=== PATIENT | male | born 1945 | race Caucasian/White ===

== ENCOUNTER → 2018-05-31 06:03 | Day surgery (SDC) | payer MEDICARE ==
--- NOTE | 2018-05-13 14:56 | HP ---
CC: Dr. Gema Cabral HISTORY AND PHYSICAL: DATE OF PLANNED ADMISSION AND SURGERY: 05/17/18 HISTORY OF PRESENT ILLNESS: Mr. Chapa is a 72-year-old white male who is admitted with a right renal calculus for cystoscopy, right ureteral stent insertion and shockwave lithotripsy. Mr. Chapa had all his urological workup in [place], [place], until he moved recently to the [place] area. Over the years, he had multiple treatments for renal calculi with bilateral shockwave lithotripsies and endoscopic stones extractions. In October 2014 because of bladder outlet obstruction, he had green light laser treatment of his obstructing prostate. About 2 years ago, he started having recurrent episodes of gross hematuria. He was worked up then by Dr. Kauffman, his urologist in [place], [place]. His workup included a CT scan which showed bilateral nonobstructing renal calculi and a cystoscopy which was negative for bladder lesions. The stones were managed conservatively. After he moved to [place], he has been followed by Dr Cabral his PCP. She referred him to my office because of recurrent episodes of painless gross hematuria. He had a repeat workup.CT urogram showed non obstructing bilateral renal calculi with the largest measuring 1.5 cm in the right renal pelvis. Cystoscopy showed an open prostatic urethra, the bladder wall showed trabeculations, but no suspicious lesions were seen. The episodes of gross hematuria were assumed to be secondary to the renal calculi. On the CT urogram, there was noted a 1.5 cm subtle mass in the head of the pancreas. Patient has been asymptomatic, having no abdominal pain, jaundice or weight loss. I referred him to see Dr. Kim for oncology consultation and Dr. Kim recommended close observation at this time. Because of the presence of the relatively large calculus in the right renal pelvis, which is likely to cause obstruction if it drops into the UPJ, patient is now admitted for treatment of that calculus. PAST MEDICAL HISTORY AND SYSTEM REVIEW: The patient has multiple medical problems. He is diabetic, maintained on metformin 1000 mg twice a day. He is hypertensive, maintained on labetalol 100 mg twice a day and lisinopril 10 mg daily. He has a history of gout and is on allopurinol 200 mg daily. He has Parkinson disease and is maintained on gabapentin 600 mg 4 times a day, Depakote 250 mg twice a day and amantadine 100 mg twice a day. He is also on clonazepam 0.4 mg at bedtime as needed. He has dyslipidemia, on Pravachol 40 mg daily. He has GERD, on omeprazole 20 mg daily. He is on duloxetine 30 mg daily and meloxicam 7.5 mg daily. He denies any allergies to medications. He was a chronic heavy smoker of 2 packs per day most of his life and he stopped about 6 months ago. PHYSICAL EXAMINATION GENERAL: He is a pleasant white male, who looks older than his age and has some changes of Parkinson's. VITAL SIGNS: Blood pressure 100/60, pulse of 70. LUNGS: Clear. HEART: Regular and rhythmic. No murmurs. ABDOMEN: Soft. No masses, no tenderness, and no CVA tenderness. EXTERNAL GENITALIA: Normal. RECTAL: Exam shows a nonenlarged and nonsuspicious prostate. EXTREMITIES: Show no edema. IMPRESSION: 1. Recurrent episodes of gross hematuria with the only positive finding on urological workup are bilateral renal calculi including a 1.5 cm calculus in the right renal pelvis. 2. Diabetes mellitus. 3. Hypertension. 4. Parkinson disease. 5. Chronic back pain. 6. Pancreatic mass, observed and followed by Dr. Kim. PLAN: Plan is for cystoscopy and placement of right ureteral stent followed by shockwave lithotripsy of the right renal calculus. I discussed the above plans with the patient and his . They both understand that he might need additional treatments if the stone does not fragment properly or if he has retained stone fragments in the ureter following stent removal. All their questions were answered. [id number]/[facility] #: [id number] [facility]S HOSPITALStorm
[~2018-05-31 06:03] MED LIST: Acetaminophen TAB* 325 MG PO PRN; Buffered Lidocaine 1% SYRIN* 1 ML/SYRINGE INTRADERM ONE; DiMENhydriNATE IV* 50 MG/ML VIAL IV PUSH PRN; Famotidine IV* 10 MG/ML 2 ML (20 mg) IV ONE; Famotidine IV* 10 MG/ML 2 ML (20 mg) ONE; Iohexol 180 (CONTRAST) 10 ML SDV IV ONE; Lactated Ringers 1000 ML Bag* 1,000 ML IV SCH; Levalbuterol 0.63MG/3ML NEB* UNIT OF USE INH PRN; Lidocaine 2% PF * 5 ML VIAL ONE; Midazolam* 1 MG/ML 2 ML VIAL (2 MG) ONE; Naloxone* 0.4 MG/ML 1 ML VIAL IV PRN; Ondansetron INJ* 2 MG/ML VIAL ONE; PROCHLORPERAZINE INJ 5 MG/ML 2 ML VIAL IV PRN; Propofol* 10 MG/ML 20 ML BTL ONE; cefTRIAXone(*) 2 GM ADDV.VIAL IVPB ONE; fentaNYL* 50 MCG/ML 2 ML VIAL (100 MCG VIAL) IV PRN; fentaNYL* 50 MCG/ML 2 ML VIAL (100 MCG VIAL) ONE
[2018-05-31 10:41] VITALS: BP 161/81
--- NOTE | 2018-05-31 10:55 | OP ---
CC: Dr. Gema Cabral * DATE OF OPERATION: 05/31/18 - [facility] DATE OF : 49 SURGEON: Dr. Oh Spence. ANESTHESIOLOGIST: Dr. Jersey Patel. ANESTHESIA: General. PRE-OP DIAGNOSIS: Right renal calculi. POST-OP DIAGNOSIS: Right renal calculi. OPERATIVE PROCEDURES: 1. Shockwave lithotripsy of right renal calculi (12 mm and 6 mm). 2. Cystoscopy. 3. Right retrograde pyelography and placement of right ureteral stent (6-Libyan ). INDICATIONS: Mr. Chapa is a 72-year-old white male who has a long history of renal calculus disease causing recurrent episodes of gross hematuria. He had previous treatment for his stones in [place] before he moved into [place]. Recent workup of the hematuria showed negative cystoscopy with no suspicious bladder lesions. CT and KUB showed multiple bilateral renal calculi. There was a 12 mm calculus in the right renal pelvis and a 6 mm calculus in the mid to upper pole calyx of the right kidney. The calculi in the left kidney were all caliceal. Because of the concern that the stone in the right renal pelvis might drop and cause obstruction and colic, the right renal calculi were addressed at this time. PATHOLOGY: Preoperative KUB, and fluoroscopy on the operating table confirmed the presence of a 12 x 5 mm calculus in the area of the right renal pelvis and a 6 mm calculus in an upper to mid pole calyx of the right kidney. FINDINGS: At cystoscopy, the penile and bulbar urethra looked normal. The prostatic urethra was open consistent with history of laser prostatectomy. Examination of the bladder showed no suspicious lesions, no calculi or diverticula were noted. Upon right retrograde pyelography, the renal pelvis was relatively small. The upper pole infundibulum was moderately dilated. The mid and lower pole infundibuli were narrow and long. DESCRIPTION OF PROCEDURE: After successful general anesthesia, patient was placed in the supine position on the shockwave lithotripsy table. The right renal calculi were visualized by fluoroscopy in both the PA and oblique x-ray views. The position of the patient and of the generator were adjusted to have the larger calculus located in the right renal pelvis in the focus of the shockwaves. A total of 2,100 shocks were then delivered at the rate of 60 shocks per minute. Proper positioning and fragmentation of the calculus were monitored periodically. A 3-minute break was taken after the initial 300 shocks to decrease the risk of renal injury. At 2100 shocks, the stone was felt to have broken adequately. The decision was made to use the remaining shockwaves to partially fragment and dislodge the residual right renal calculus. The position of the patient and of the generator were then readjusted to have the 6 mm caliceal calculus in the focus of the shockwaves. The remaining 400 shocks were then delivered and there seemed to be fragmentation of the stone. The patient was then placed in the lithotomy position and was prepped and draped for cystoscopy. Cystoscopy was performed. A flexible tip guidewire was introduced inside the right orifice. Retrograde pyelography was performed. A size 6-Libyan stent was then placed. Because of the anatomy of the collecting system and the small size of the renal pelvis, the proximal end of the stent ended up in an upper calyx with the coil in the renal pelvis. A 16-Libyan Rodrigues catheter was then placed inside the bladder. The patient tolerated the procedure well and left the operating room in good condition. [id number]/[facility] #: [id number] JAYCOB
== END | disposition home or self-care (01) ==
LOC: OR 06:03
PROVIDERS: ATTEND Urology
DX: N20.0 Calculus of kidney (principal); R31.0 Gross hematuria; F17.211 Nicotine dependence, cigarettes, in remission; G20 Parkinson's disease; E11.9 Type 2 diabetes mellitus without complications; Z79.84 Long term (current) use of oral hypoglycemic drugs; I10 Essential (primary) hypertension; K86.89 Other specified diseases of pancreas
CPT/HCPCS: 74018; C1876; J0696; J2250; J2405; J2704; J3010

== ENCOUNTER 2018-11-15 09:12 | Inpatient (IN) | payer MEDICARE ==
--- OUTSIDE RECORDS SUMMARY | 2018-11-15 09:26 | XMS REPORT | Continuity of Care Document ---
:1945 External Reference #:[id number] Author Name Belen Roche Care Team Providers Name Role Phone Gema Cabral MD Primary Care Physician Unavailable Payers Date Identification Numbers Payment Provider Subscriber Policy Number: [id number] Medicare Blue Ppo Lang Chapa PayID: [id number] [address] [address] [place] [address] Problems Active Problems Provider Date Parkinson's disease Kayden Cosme M.D. Onset: 03/11/2018 Social History Type Date Description Comments Sex Unknown Hand Dominance Right-handed ETOH Use Denies alcohol use Tobacco Use Start: Unknown End: Unknown Patient is a former smoker Smoking Status Reviewed: 10/18/18 Patient is a former smoker Allergies, Adverse Reactions, Alerts Description No Known Drug Allergies Medications Active Medications SIG Qnty Indications Ordering Provider Date Amantadine HCL 1 by mouth two 60tabs Kayden Cosme, 03/08/2018 100mg times a day M.D. Tablets Labetalol HCL 1 by mouth twice Unknown 100mg a day Tablets Lisinopril 1 by mouth every Unknown 10mg Tablets day Folic Acid 1 by mouth every Unknown 1mg Tablets day Acetaminophen 1 by mouth twice Unknown 500mg a day as needed Tablets Centrum Silver 1 by mouth every Unknown Tablets day Nasonex spray 2 sprays Unknown 50mcg/Act in each nostril Suspension once daily Calcium 1 two times a Unknown 250mg Capsules day Vitamin D3 1 by mouth every Unknown 2000Unit day Capsules Aspir-81 1 by mouth every Unknown 81mg Tablets day DR Oxycodone-Acetaminoph Take 1 Tablet By Unknown en Mouth Four Times 10-325mg Tablets Daily as Needed For Pain Lactulose As directed Unknown 10GM/15ML Solution Pravastatin Sodium 1 po daily Unknown 40mg Tablets Omeprazole 1 po daily Unknown 20mg Capsules DR Morphine Sulfate Take 1 Tablet By Unknown 15mg Mouth Three Tablets Times Daily Maximum Daily Dose Of 3 Tablets Per Day Metformin HCL once every am a Unknown 1000mg day and pm Tablets Meloxicam 1 po daily Unknown 7.5mg Tablets Duloxetine HCL 1 po daily Unknown 30mg Caps Part Divalproex Sodium twice a day Unknown 250mg Tablets DR Allopurinol 1 po daily Unknown 200mg Tablets Clonazepam 1 po at hs Gema Allan MD 0.5mg Tablets Gabapentin take one tablet Unknown 600mg by mouth four Tablets times a day Exelon apply 1 patch to Unknown 9.5mg/24HR the skin every Patches 24HR 24 hours History Medications Lisinopril 1 po two times a day Unknown - 06/10/2018 20mg Tablets Labetalol HCL Take 1 Tablet By Mouth Unknown - 06/10/2018 200mg Tablets Two Times Daily Norvasc 1 by mouth every day Unknown - 06/09/2018 5mg Tablets Vital Signs Date Vital Result Comment 10/18/2018 1:54pm Height 70 inches 5'10" Weight 222.00 lb Heart Rate 68 /min BP Systolic 142 mmHg BP Diastolic 98 mmHg BMI (Body Mass Index) 31.9 kg/m2 06/10/2018 11:41am Height 70 inches 5'10" Weight 210.00 lb Heart Rate 68 /min BP Systolic 152 mmHg BP Diastolic 78 mmHg BMI (Body Mass Index) 30.1 kg/m2 03/11/2018 9:23am Height 70 inches 5'10" Weight 213.50 lb Heart Rate 70 /min BP Systolic 120 mmHg BP Diastolic 62 mmHg BMI (Body Mass Index) 30.6 kg/m2 Encounters Type Date Location Provider Dx Diagnosis Office Visit 10/18/2018 [facility] Ba, G2Rima Parkinson' s 1:45p [facility] Office Visit 06/10/2018 [facility] Katelyn Garcia Parkinson' s 11:45a [facility] Office Visit 03/11/2018 [facility] Kayden Cosme G2Rima Parkinson' s 9:30a [facility] Plan of Treatment Future Appointment(s):02/18/2019 1:30 pm - Kayden Cosme M.D. at [facility]10/25/2018 9:30 am - Moises Boles [facility]10/18/2018 - Kayden Cosme M.D.G20 Parkinson's diseaseNew Therapy:Occupational TherapyFollow up:Follow up in 4 months
--- NOTE | 2018-11-15 10:20 | ED ---
Adult Trauma - HPI Summary HPI Summary: LEVEL 5 CAVEAT - AMS This patient is a 73 year old M w hx of Parkinson's [facility] and [facility] with a chief complaint of fall occurring this morning. Patients reports she found pt on the floor of the bathroom. Pt has Parkinsons, and occasionally has episodes of AMS. Pt is alert and oriented x1 (to person). Pt did not know the year, time or the city he was in. According to at baseline he is oriented x3, he is occasionally forgetful. The last episode was approx. 1 year ago. Pt has a scrape on his left knee. Pt takes baby aspirin. Denies complaints at this time. LEVEL 5 CAVEAT - AMS - History of Current Complaint Chief Complaint: EDFall Stated Complaint: SICK PER PT Time Seen by Provider: 11/15/18 09:56 Hx Obtained From: Family/Family Consultant, Other: - LEVEL 5 CAVEAT - AMS Hx From Patient Unobtainable Due To: Altered Mental Status Mechanism of Injury: Fall Ambulatory at the Scene: Yes Loss of Consciousness: unsure Onset/Duration: Started Hours Ago Onset of Pain: Post Accident Onset Severity: Moderate Current Severity: Moderate Pain Intensity: 5 Pain Scale Used: 0-10 Numeric Location: Other - left knee - Allergy/Home Medications Allergies/Adverse Reactions: Allergies Allergy/AdvReac Type Severity Reaction Status Date / Time No Known Allergies Allergy Verified 09/13/18 14:31 PMH/Surg Hx/FS Hx/Imm Hx Previously Healthy: No - LEVEL 5 CAVEAT - AMS Endocrine/Hematology History: Reports: Hx Diabetes - DM, Hx Anemia - hx of - none for about 1 years Cardiovascular History: Reports: Hx Hypercholesterolemia, Hx Hypertension, Other Cardiovascular Problems/Disorders - left and right carotid blockage Denies: Hx Pacemaker/ICD Respiratory History: Reports: Hx Seasonal Allergies GI History: Reports: Hx Gastroesophageal Reflux Disease, Hx Irritable Bowel, Other GI Disorders - chronic constipation History: Reports: Hx Kidney Stones - BILATERAL Denies: Hx Renal Disease - KIDNEY STONES Musculoskeletal History: Reports: Hx Arthritis, Hx Back Problems, Hx Bursitis - elbow, Hx Gout Sensory History: Reports: Hx Contacts or Glasses - to read, Hx Hearing Aid - both ears Opthamlomology History: Reports: Hx Contacts or Glasses - to read Neurological History: Reports: Hx Nerve Disease - DM neuropathy, Parkinsons- diagnosed 2013, Other Neuro Impairments/Disorders - charco left foot Psychiatric History: Reports: Hx Depression Denies: Hx Panic Disorder - Cancer History Hx Chemotherapy: No - Surgical History Surgery Procedure, Year, and Place: Lumbar Laminectomy x2 20 years ago in [place]. SKIN GRAFTS ([place]). CHOLECYSTECTOMY. LITHROTRIPSY- multiple times. bilat cataract surgery with IOL. green light laser for prostate Hx Anesthesia Reactions: Yes - after 1 surgery had delayed urinary retention Infectious Disease History: No Infectious Disease History: Denies: Traveled Outside the [place] in Last 30 Days - Family History Known Family History: Positive: Other - LEVEL 5 CAVEAT - AMS - Social History Alcohol Use: None Substance Use Type: Reports: None Smoking Status (MU): Former Smoker Type: Cigarettes - Additional Comments History Additional Comments: LEVEL 5 CAVEAT - AMS Review of Systems Positive: Other - pos - scrape on left knee Neurological: Other - pos - Oriented x1 All Other Systems Reviewed And Are Negative: No - Comments Additional Review of Systems Comments: LEVEL 5 CAVEAT - AMS Physical Exam - Summary Physical Exam Summary: LEVEL 5 CAVEAT - AMS Constitutional: Elderly male, (-) Distressed Skin: Warm, Dry HENT: Normocephalic; Atraumatic Eyes: Conjunctiva normal Neck: Musculoskeletal ROM normal neck. (-) JVD, (-) Stridor, (-) Nuchal rigidity Cardio: Rhythm regular, rate normal, Heart sounds normal; Intact distal pulses; Radial pulses are 2+ and symmetric. (-) Murmur Pulmonary/Chest wall: Effort normal. (-) Respiratory distress, (-) Wheezes, (-) Rales Abd: Soft, (-) tenderness, (-) Distension, (-) Guarding, (-) Rebound Musculoskeletal: (-) Edema Lymph: (-) Cervical adenopathy Neuro: Alert, Oriented to person, not place or time. CN2-12 grossly intact. BUE BLE strength 5/5, Extremity tremors Psych: Mood and affect Normal Triage Information Reviewed: Yes Vital Signs On Initial Exam: Initial Vitals Temp Pulse Resp BP Pulse Ox 97.9 F 113 20 134/67 94 11/15/18 09:14 11/15/18 09:14 11/15/18 09:14 11/15/18 09:14 11/15/18 09:14 Vital Signs Reviewed: Yes Diagnostics - Vital Signs Vital Signs Temp Pulse Resp BP Pulse Ox 11/15/18 09:14 97.9 F 113 20 134/67 94 - Laboratory Result Diagrams: 11/15/18 10:36 11/15/18 10:36 Lab Statement: Any lab studies that have been ordered have been reviewed, and results considered in the medical decision making process. - Radiology CXR Radiology Interpretation Completed By: Radiologist Summary of Radiographic Findings: CXR reveals, per radiologist, IMPRESSION: NO ACTIVE CARDIOPULMONARY DISEASE. ED physician has reviewed this radiology report. - CT Brain CT CT Interpretation Completed By: Radiologist Summary of CT Findings: Brain CT reveals, per radiologist, IMPRESSION: DIFFUSE INVOLUTIONAL CHANGE. NO ACUTE INTRACRANIAL PATHOLOGY. ED physician has reviewed this radiology report. - EKG 10:14 Cardiac Rate: Tachycardia - 100 bpm EKG Rhythm: Sinus Rhythm Summary of EKG Findings: An EKG at 10:14 reveals sinus tachycardia 100 bpm Re-Evaluation - Re-Evaluation First Eval Re-Evaluation Time: 12:21 Comment: Discussed results and plan of care with pt. Adult Trauma Course/Dx - Course Course Of Treatment: 73 y/o male with a history of Parkinson's and intermittent confusion presents with weakness and altered mental status. - Physical exam notable for abrasion to left knee without underlying tenderness. Baseline extremity tremors. Patient is alert only to self. Given that this patient has normal O2, BG, hypoxia and hypoglycemia/DKA less likely. DDx still includes: UTI, PNA, electrolyte abnl, thyroid issues, drug overdose, hypothermia, uremia, trauma, encephalopathy/encephalitis, psych, stroke, SAH, postictal from seizure. Will check labs, head ct, urine, ekg, cxr. Reassess. Given weakness will also r/o cardiac causes w EKG, troponin - Diagnoses Provider Diagnoses: Weakness, Altered mental status - Physician Notifications Discussed Care Of Patient With: Chon Guy Time Discussed With Above Provider: 13:06 Instructed by Provider To: Other - Discussed care with Dr. Guy, who accepts pt for admission. Discharge - Sign-Out/Discharge Documenting (check all that apply): Patient Departure - Admit Patient Received Moderate/Deep Sedation with Procedure: No - Discharge Plan Condition: Stable Disposition: ADMITTED TO [facility] - Billing Disposition and Condition Condition: STABLE Disposition: Admitted to [facility] - Attestation Statements Document Initiated by Scribe: Yes Documenting Scribe: Sara Monreal Provider For Whom Gorge is Documenting (Include Credential): Dr. Charles Gagnon MD Scribe Attestation: Sara Mann, scribed for Dr. Charles Gagnon MD on 11/15/18 at 2133. Scribe Documentation Reviewed: Yes Provider Attestation: The documentation as recorded by the gorge, Sara Monreal accurately reflects the service I personally performed and the decisions made by me, Dr. Charles Gagnon MD Status of Scribe Document: Viewed
[2018-11-15] MEDS ORDERED: Amantadine CAP* 100 MG PO ONE (10:44)
[2018-11-15 11:03] LABS: ABS Eosinophils 0.1 10^3/ul (0-0.6); ABS Lymphocytes 1.2 10^3/ul (1.0-4.8); ABS Monocytes 1.5 10^3/ul (0-0.8); ABS Neutrophils 10.4 10^3/ul (1.5-7.7); Eosinophil % 0.6 %; Hematocrit 40 % (42-52); Hemoglobin 13.4 g/dL (14.0-18.0); Lymphocyte % 9.4 %; Mean Corpuscular HGB Conc 33 g/dL (31-36); Mean Corpuscular Hemoglobin 27 pg (27-31); Mean Corpuscular Volume 81 fL (80-94); Mean Platelet Volume 8.1 fL (7.4-10.4); Platelet Count 158 10^3/uL (150-450); Red Blood Count 4.98 10^6 /uL (4.18-5.48); Red Cell Distribution Width 16 % (10-15); White Blood Count 13.2 10^3/uL (3.5-10.8)
[2018-11-15 11:16] LABS: Troponin I 0.18 ng/mL (<0.04)
[2018-11-15 11:35] LABS: ALT 26 U/L (7-52); AST 36 U/L (13-39); Albumin 4.2 g/dL (3.2-5.2); Albumin/Globulin Ratio 1.7 (1-3); Alkaline Phosphatase 68 U/L (34-104); Anion Gap 11 mmol/L (2-11); BUN/Creatinine Ratio 12.1 (8-20); Blood Urea Nitrogen 16 mg/dL (6-24); CO2 Carbon Dioxide 24 mmol/L (22-32); Calcium 9.6 mg/dL (8.6-10.3); Chloride 102 mmol/L (101-111); EGFR African American 64.7 (>60); EGFR Non-African American 53.5 (>60); Globulin 2.5 g/dL (2-4); Glucose 218 mg/dL (70-100); Potassium 4.5 mmol/L (3.5-5.0); Sodium 137 mmol/L (135-145); Total Protein 6.7 g/dL (6.4-8.9)
[2018-11-15 13:05] LABS: Urine Appearance Clear; Urine Bacteria Absent (Absent); Urine Bilirubin Negative (Negative); Urine Blood Negative (Negative); Urine Color Yellow; Urine Glucose Negative (Negative); Urine Ketones 1+ (Negative); Urine Nitrite Negative (Negative); Urine Protein 1+(30 mg/dL) (Negative); Urine Red Blood Cell Trace(0-2/hpf) (Absent); Urine Specific Gravity 1.015 (1.010-1.030); Urine Urobilinogen Positive (Negative); Urine White Blood Cell Trace(0-5/hpf) (Absent)
[2018-11-15] MEDS ORDERED: Acetaminophen TAB* 325 MG PO PRN (14:02)
[2018-11-15] MEDS ORDERED: oxyCODONE TAB* 5 MG TAB PO PRN (14:02)
[2018-11-15] MEDS ORDERED: oxyCODONE/Acetamin 5/325 MG* TAB PO PRN (14:02)
[2018-11-15] MEDS ORDERED: Dextrose 50% VIAL 50 ml IV PUSH PRN (14:05)
[2018-11-15 14:21] LABS: Troponin I 0.18 ng/mL (<0.04)
--- NOTE | 2018-11-15 16:56 | HP ---
CC: Dr. Cabral; Dr. Cosme; Dr. Truong, [facility] * HISTORY AND PHYSICAL: DATE OF ADMISSION: 11/15/18 PRIMARY CARE PROVIDER: Dr. Cabral. OTHER PROVIDERS: Dr. Cosme; Dr. Truong at [facility]. ATTENDING PHYSICIAN: Chon Guy MD * (dictated by CECI Luong). CHIEF COMPLAINT: Fall. HISTORY OF PRESENT ILLNESS: Mr. Chapa is a 73-year-old male with past medical history of Parkinson disease, hypertension, diabetes, diabetic neuropathy, Charcot left foot, who presented to the ER today after a fall. The patient was walking in the bathroom and fell on the ground. He was found on the floor by his , who called their son to help him up. They believe he was down for approximately 2 hours. He does have a history of poor ambulation and often becomes weak and has to lower himself to the floor. He often becomes dizzy and weak with ambulation. He does not use any assistive devices with walking. He had PT from June to September twice weekly but then his states that he "failed PT." Dr. Cosme ordered OT in mid October and the patient has had weekly home occupational therapy since then. He also has an aide 2 times per week through the [place]. Today, he is confused. He is oriented to person, but not to place or date. His states that this is unusual and he is typically alert and oriented x3. The patient notes occasional shortness of breath with walking. He notes he had approximately 3 episodes of diarrhea on Thursday and has had a soft BM today with no other episodes. He denies chest pain, diaphoresis, shortness of breath, jaw pain, or upper extremity pain. He denies cough, fever , chills. He denies changes in urination. He denies focal neurological deficit , focal weakness. While in the emergency department, the patient received a full workup including laboratory data revealing a leukocytosis and mild normocytic anemia. His creatinine is noted to be elevated which appears to be his baseline. He also is noted to have an elevated troponin. Chest x-ray revealed no cardiopulmonary disease, and CT of the head showed no intracranial pathology. In the ER, he was given amantadine 100 mg p.o. the hospitalist team was asked to evaluate the patient for admission. PAST MEDICAL HISTORY: 1. Parkinson's disease. 2. Hypertension. 3. Hyperlipidemia. 4. Carotid disease, left greater than right. The patient follows with Dr. Truong. 5. Diabetes mellitus. 6. Diabetic neuropathy. 7. Charcot left foot. 8. History of nephrolithiasis. 9. IBS. 10. Gout. 11. GERD. 12. Chronic pain. 13. Depression. PAST SURGICAL HISTORY: 1. Lumbar spinal surgery x2. 2. Lithotripsy. 3. Cholecystectomy. 4. Bilateral cataracts. 5. GreenLight laser PVP. HOME MEDICATIONS: 1. Acetaminophen 500 mg p.o. b.i.d. p.r.n. pain. 2. Allopurinol 200 mg p.o. q.a.m. 3. Amantadine 100 mg p.o. b.i.d. 4. Aspirin 81 mg p.o. q.a.m. 5. Calcium plus D3 one tab p.o. b.i.d. 6. Cholecalciferol 2000 units p.o. q.a.m. 7. Clonazepam 0.5 mg p.o. at bedtime p.r.n. anxiety. 8. Divalproex DR 250 mg p.o. b.i.d. 9. Duloxetine 30 mg p.o. q.a.m. 10. Folic acid 1 mg p.o. q.a.m. 11. Gabapentin 600 mg p.o. q.i.d. 12. Labetalol 100 mg p.o. b.i.d. 13. Lactulose 15 mL p.o. b.i.d. p.r.n. constipation. 14. Lisinopril 10 mg p.o. at bedtime. 15. Meloxicam 7.5 mg p.o. at 1730. 16. Metformin 1000 mg p.o. daily. 17. Morphine ER 15 mg p.o. t.i.d. 18. Multivitamins 1 tab p.o. daily. 19. Nasacort 1 spray to both nares q.a.m. p.r.n. allergy symptoms. 20. Omeprazole 20 mg p.o. q.a.m. 21. Oxycodone/acetaminophen 10/325 one tab p.o. t.i.d. p.r.n. pain, MDD3. 22. Pravastatin 40 mg p.o. q.a.m. 23. Rivastigmine patch 9.5 mg 1 patch transdermal daily. DRUG ALLERGIES: NKDA. FAMILY HISTORY: Father has a history of hypertension, diabetes mellitus, heart disease. Mother has a history of kidney disease, hypertension. Maternal grandfather has diabetes mellitus. SOCIAL HISTORY: The patient quit smoking approximately 1 year ago, prior to that he smoked 2 packs per day for 40 years. He does not use alcohol. He lives at [facility] with his . 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 In the event that he is unable to make his own medical decisions, he has appointed his Evelyne Chapa to be his surrogate decision maker. REVIEW OF SYSTEMS: A 10-point review of systems has been performed, and all the pertinent positives and negatives are in the HPI. All other systems are negative. PHYSICAL EXAMINATION GENERAL: Mr. Chapa is a well-developed, well-nourished, obese, 73-year-old white male who is sitting up in bed. He appears to be in no acute distress. He is pleasant, cooperative, and appropriate. VITAL SIGNS: Temperature 97.9 temporal, heart rate 80, respiratory rate 24, oxygen saturation 95% on room air, blood pressure 153/72. HEENT: Visual thompson grossly intact. PERRL. EOMI. Nonicteric sclerae. Hearing grossly intact, although the patient is slightly hard of hearing. Oral mucous membranes are moist without lesions. Tongue is at midline. RESPIRATORY: Symmetrical chest expansion without use of accessory muscles without rhonchi, wheezes, or rales. CARDIOVASCULAR: Regular rate and rhythm with S1, S2 present without murmurs, rubs, clicks, or gallops. There is no JVD. ABDOMEN: Bowel sounds in all quadrants. Abdomen is soft. There is no tenderness to palpation. MUSCULOSKELETAL: The patient has full range of motion in both upper and lower extremities without pain or deformities. The patient has a constant bilateral upper extremity tremor distally. NEURO: The patient is awake and alert. He is oriented to self only. When asked where he is, he reads the sign and says [facility]. Unaware of date. Cranial nerves are grossly intact. He is able to move all of his extremities with a 5/5 motor strength in upper and lower extremities bilaterally. DIAGNOSTIC STUDIES/LAB DATA: WBC 13.2, HGB 13.4, HCT 40, MCV 81. Creatinine 1.32, glucose 218, troponin 0.[address]: Impression: Diffuse involutional change. No acute intracranial pathology. Chest x-ray: Impression: No active cardiopulmonary disease. ASSESSMENT AND PLAN: Mr. Chapa is a 73-year-old male with past medical history of Parkinson's , hypertension, diabetes, diabetic neuropathy, carotid disease, who presented to the ER today after a fall due to weakness. The patient will be admitted under observation for: 1. Fall. The patient experienced a fall today. This is not outside of his baseline and he did not hit his head. His does note that he appears to be somewhat more confused than usual, unable to confirm his location or today's date. It is noted that he does have a leukocytosis and a history of frequent UTIs, although he has not had one in approximately 1 year. His urinalysis was negative for LE, nitrites, or bacteria. Chest x-ray was within normal limits. The patient denies cough. He has had a couple bouts of diarrhea 2 days ago, which have since subsided. He denies nausea or vomiting. The patient does not appear to have an infection at this time. Physical therapy and occupational therapy has been ordered to assess the patient's ambulation. 2. Elevated troponin. The patient has elevated troponin without chest pain, jaw pain, left arm pain, diaphoresis or shortness of breath. There appeared to be no CT abnormalities on EKG. The patient's troponins have been 0.18 x2. We will continue to trend troponins. EKG has been ordered for the a.m. 3. Diabetes mellitus. The patient's metformin will be held. He will placed on lispro sliding scale with fingersticks a.c. and h.s. 3. Hypertension. In the setting of elevated creatinine, I have held the patient's lisinopril for the time being. We will monitor for need to add medications for blood pressure control. 4. Parkinson disease. Continue home medication amantadine. 5. Chronic pain. Continue home medications gabapentin, morphine ER, Percocet. We will hold meloxicam at this time. 6. Depression. Continue Cymbalta. 7. Code status: Full code. 8. DVT prophylaxis: According to the DVT risk assessment, the patient scores 3 , placing him at high risk. He will be started on heparin subcu q.8 hours. TIME SPENT: Approximately 60 minutes was spent on this admission, greater than half that time was spent with the patient, his , and his son obtaining history, performing a physical, and reviewing the plan of care. The case has been reviewed with my attending Dr. Guy, who is in agreement with the plan of care. CECI FUNES [id number]/[facility] #: [id number] JAYCOB
[2018-11-15] MEDS: Gabapentin CAP(*) 300 MG PO SCH ×2 (17:11→21:11)
[2018-11-15] MEDS: RIVASTIGMINE 9.5 MG TRANSDERM SCH (17:13)
[2018-11-15] MEDS: Insulin LISPRO* 1 UNITS UNIT SUBCUT SCH ×2 (17:14→21:13)
[2018-11-15 17:15] LABS: Troponin I 0.18 ng/mL (<0.04)
[2018-11-15 20:43] LABS: Troponin I 0.17 ng/mL (<0.04)
[2018-11-15] MEDS: clonazePAM TAB(*) 0.5 MG PO PRN (21:11)
[2018-11-15] MEDS: Amantadine CAP* 100 MG PO SCH (21:11)
[2018-11-15] MEDS: Labetalol TAB* 200 MG PO SCH (21:12)
[2018-11-15] MEDS: Morphine TAB Extended Release (*) 15 MG TAB.ER PO SCH (21:12)
[2018-11-15] MEDS: Divalproex DR TAB(*) 250 MG PO SCH (21:13)
[2018-11-16 08:15] LABS: ABS Basophils 0.1 10^3/ul (0-0.2); ABS Eosinophils 0.3 10^3/ul (0-0.6); ABS Lymphocytes 2.7 10^3/ul (1.0-4.8); ABS Monocytes 0.9 10^3/ul (0-0.8); Eosinophil % 2.9 %; Hematocrit 38 % (42-52); Hemoglobin 12.3 g/dL (14.0-18.0); Lymphocyte % 24.4 %; Mean Corpuscular HGB Conc 32 g/dL (31-36); Mean Corpuscular Hemoglobin 27 pg (27-31); Mean Corpuscular Volume 83 fL (80-94); Mean Platelet Volume 7.5 fL (7.4-10.4); Nucleated Red Blood Cells % 0.1; Platelet Count 154 10^3/uL (150-450); Red Blood Count 4.56 10^6 /uL (4.18-5.48); Red Cell Distribution Width 16 % (10-15); White Blood Count 10.9 10^3/uL (3.5-10.8)
[2018-11-16] MEDS ORDERED: Aspirin 81 mg CHEW TAB* 81 MG TAB.CHEW PO ONE (08:29)
[2018-11-16] MEDS: Allopurinol TAB* 100 MG PO SCH (08:31)
[2018-11-16] MEDS: Folic Acid TAB* 1 MG PO SCH (08:31)
[2018-11-16] MEDS: Aspirin EC TAB* 81 MG TAB.EC PO SCH (08:31)
[2018-11-16] MEDS: Pantoprazole TAB * 40 MG TAB PO SCH (08:31)
[2018-11-16] MEDS: Atorvastatin* 10 MG TAB PO SCH (08:32)
[2018-11-16] MEDS: Morphine TAB Extended Release (*) 15 MG TAB.ER PO SCH ×3 (08:32→20:49)
[2018-11-16] MEDS: DULoxetine DR CAP* 30 MG CAP.DR PO SCH (08:32)
[2018-11-16] MEDS: Gabapentin CAP(*) 300 MG PO SCH ×4 (08:33→20:47)
[2018-11-16] MEDS: Divalproex DR TAB(*) 250 MG PO SCH ×2 (08:34→20:45)
[2018-11-16] MEDS: Insulin LISPRO* 1 UNITS UNIT SUBCUT SCH ×4 (08:35→20:44)
[2018-11-16] MEDS: Labetalol TAB* 200 MG PO SCH ×2 (08:35→20:45)
[2018-11-16 08:37] LABS: BUN/Creatinine Ratio 14.7 (8-20); Calcium 9.3 mg/dL (8.6-10.3); EGFR African American 62.5 (>60); EGFR Non-African American 51.7 (>60); Potassium 3.7 mmol/L (3.5-5.0)
[2018-11-16] MEDS ORDERED: RIVASTIGMINE 9.5 MG TRANSDERM SCH (09:00)
[2018-11-16] MEDS: Amantadine CAP* 100 MG PO SCH ×2 (09:47→20:48)
[2018-11-16] MEDS: RIVASTIGMINE 9.5 MG TRANSDERM SCH (09:48)
[2018-11-16] MEDS: RIVASTIGMINE REMOVE PATCH OFF SCH (09:49)
--- NOTE | 2018-11-16 12:10 | PN ---
Subjective Date of Service: 11/16/18 Interval History: Patient telling me he didn't recall falling the way he normally does. He typically knows when he is about to fall and can lower himself to the floor. He has no memory of falling and woke up on the floor to a concerned . He denies chest pain, SOB, fever/chills, abd pain, neck/jaw/arm pain, nausea/ vomiting. Objective Active Medications: Acetaminophen (Tylenol Tab*) 487.5 mg PO BID PRN PRN Reason: PAIN Allopurinol (Zyloprim Tab*) [address] [facility] Last Admin: 11/16/18 08:31 Dose: 200 mg Amantadine HCl (Symmetrel Cap*) 100 mg PO BID [facility] Last Admin: 11/16/18 09:47 Dose: 100 mg Aspirin (Aspirin Ec Tab*) [address] [facility] Last Admin: 11/16/18 08:31 Dose: 81 mg Atorvastatin Calcium (Lipitor*) [address] [facility] Last Admin: 11/16/18 08:32 Dose: 10 mg Clonazepam (Klonopin Tab(*)) 0.5 mg PO BEDTIME PRN PRN Reason: ANXIETY Last Admin: 11/15/18 21:11 Dose: 0.5 mg Dextrose (Dextrose 50% Vial 50 Ml*) 25 ml IV PUSH .FOR FS < 60 - SS PRN PRN Reason: FS < 60 Divalproex Sodium (Depakote Dr Tab(*)) 250 mg PO BID [facility] Last Admin: 11/16/18 08:34 Dose: 250 mg Duloxetine HCl (Cymbalta Cap*) [address] [facility] Last Admin: 11/16/18 08:32 Dose: 30 mg Folic Acid (Folvite Tab*) [address] [facility] Last Admin: 11/16/18 08:31 Dose: 1 mg Gabapentin (Neurontin Cap(*)) 600 mg PO QID [facility] Last Admin: 11/16/18 08:33 Dose: 600 mg Insulin Human Lispro (Humalog*) 0 units SUBCUT [facility]; Protocol Last Admin: 11/16/18 08:35 Dose: 2 units Labetalol HCl (Trandate Tab*) 100 mg PO BID [facility] Last Admin: 11/16/18 08:35 Dose: 100 mg Morphine Sulfate (Ms Contin(*)) 15 mg PO TID [facility] Last Admin: 11/16/18 08:32 Dose: 15 mg Oxycodone HCl (Roxycodone Tab*) 5 mg PO TID PRN PRN Reason: PAIN MILD TO MODERATE Last Admin: 11/15/18 17:12 Dose: 5 mg Oxycodone/Acetaminophen (Percocet 5/325 Tab*) 1 tab PO TID PRN PRN Reason: Pain mild to moderate Last Admin: 11/15/18 17:12 Dose: 1 tab Pantoprazole Sodium (Protonix Tab*) 40 mg PO QAM [facility] Last Admin: 11/16/18 08:31 Dose: 40 mg Pharmacy Profile Note (Rivastigmine Patch Remove*) 1 note PATCH OFF Q24H [facility] Last Admin: 11/16/18 09:49 Dose: 1 note Rivastigmine (Exelon Patch(Nf)) [address] [facility] Last Admin: 11/16/18 09:48 Dose: 1 patch Vital Signs - 8 hr 11/16/18 11/16/18 11/16/18 08:32 08:33 11:46 Respiratory 20 20 17 Rate Oxygen Devices in Use Now: None Appearance: elderly white male laying upright appearing in NAD Eyes: No Scleral Icterus, PERRLA Ears/Nose/Mouth/Throat: Mucous Membranes Moist Neck: NL Appearance and Movements; NL JVP Respiratory: Symmetrical Chest Expansion and Respiratory Effort, Clear to Auscultation Cardiovascular: NL Sounds; No Murmurs; No JVD, RRR Abdominal: - - abd soft, nontender, nondistended Extremities: No Edema, No Clubbing, Cyanosis Skin: No Rash or Ulcers Neurological: Alert and Oriented x 3, NL Muscle Strength and Tone Result Diagrams: 11/16/18 07:56 11/16/18 07:56 Assess/Plan/Problems-Billing Assessment: 73 yo male with PMHx parkinson's, HTN, carotid stenosis, DMT2 with neuropathy, GERD, HTN, HLD presents with after being found on the floor by his . - Patient Problems (1) NSTEMI (non-ST elevated myocardial infarction) Current Visit: Yes Status: Acute Code(s): I21.4 - NON-ST ELEVATION (NSTEMI) MYOCARDIAL INFARCTION SNOMED Code(s): 72614459 Comment: -patient with troponin 0.18 downtrended to 0.17 -initially with ST depressions in V4-V5, which have since resolved -echo without myocardium changes -Stress test pending for tomorrow -cont aspirin (2) Fall Current Visit: Yes Status: Acute Comment: -it is quite possible this was a syncopal event condsidering the patient's description -echo wnl, no valvular pathologies -failed outpatient physical therapy (3) Leukocytosis Current Visit: Yes Status: Acute Code(s): D72.829 - ELEVATED WHITE BLOOD CELL COUNT, UNSPECIFIED SNOMED Code(s): 508063403 Comment: -downtrending -possibly related to stress -urine without growth and pt has been afebrile (4) Hypertension Current Visit: Yes Status: Acute Code(s): I10 - ESSENTIAL (PRIMARY) HYPERTENSION SNOMED Code(s): 23817057 Comment: -normotensive -cont labetalol and lisinopril (5) Diabetes mellitus type 2 in obese Current Visit: Yes Status: Acute Code(s): E11.69 - TYPE 2 DIABETES MELLITUS WITH OTHER SPECIFIED COMPLICATION; E66.9 - OBESITY, UNSPECIFIED SNOMED Code(s) : 48501743 Comment: -holding home meds -checking A1c -SS lispro inpatient (6) Depression Current Visit: Yes Status: Acute Code(s): F32.9 - MAJOR DEPRESSIVE DISORDER , SINGLE EPISODE, UNSPECIFIED SNOMED Code(s): 16543256 Comment: -cont duloxetine (7) Parkinson disease Current Visit: Yes Status: Acute Code(s): G20 - PARKINSON'S DISEASE SNOMED Code(s): 39601045 Comment: -cont rivastigmine patch and amantine -may be candidate for PMRU if PT determines rehab needed (8) DVT prophylaxis Current Visit: Yes Status: Acute Code(s): Z29.9 - ENCOUNTER FOR PROPHYLACTIC MEASURES, UNSPECIFIED SNOMED Code(s): 354158882 Comment: -lovenox (9) Full code status Current Visit: Yes Status: Acute Code(s): Z78.9 - OTHER SPECIFIED HEALTH STATUS SNOMED Code(s): 656466312 Status and Disposition: inpatient
--- NOTE | 2018-11-16 12:41 | ECHO ---
*[facility]* [place] [address] Fax #: [phone] Transthoracic Echocardiogram Patient: Lang Chapa : 1945 Study Date: 11/16/2018 Age: 73 Gender: M HR: 66 bpm Height: 69 in /175.3 cm BSA: 2.12 m^2 Weight: 212.6 lb /96.6 kg BMI: 31.5 kg/m^2 *Gas Station Operator: * Aundrea Lock RDCS RN *Referring Physician: * O'Shauna Orozco *Reading Physician: * Alfonso Nolasco MD Indications: Abnormal EKG. History: Syncope with fall. Parkinson's disease. Risk factors: Former tobacco use. Hypertension. Diabetes mellitus. Conclusions Summary: - Left ventricle: Systolic function is normal. The estimated ejection fraction is 60-65%. Wall motion is normal; there are no regional wall motion abnormalities. - Right ventricle: Systolic function is normal. - Mitral valve: There is trace to mild regurgitation. - Aortic valve: There is no evidence of stenosis. There is no regurgitation. - Pericardium, extracardiac: There is no pericardial effusion. - Pulmonary arteries: Systolic pressure is mildly increased, estimated to be 37 mm Hg. - Study data: No prior study is available for comparison. Study data: Transthoracic echocardiogram. Procedure: Transthoracic echocardiography was performed. Image quality was fair. The study was technically limited due to body habitus and smoking history. Complete 2D, spectral Doppler, and color flow Doppler. Location: Bedside. Patient status: Observation. Patient room number: 450-02. No prior study is available for comparison. Rhythm: Normal sinus rhythm with PAC's. Findings Left ventricle: The cavity size is normal. Wall thickness is mildly increased. Systolic function is normal. The estimated ejection fraction is 60-65%. Wall motion is normal; there are no regional wall motion abnormalities. Doppler parameters are consistent with abnormal left ventricular relaxation (grade 1 diastolic dysfunction). Right ventricle: The cavity size is normal. Systolic function is normal. Ventricular septum: The outflow septum has a sigmoid appearance. Left atrium: The atrium is mildly dilated. Right atrium: The atrium is mildly dilated. Mitral valve: The posterior mitral valve annulus appears mildly calcified. The leaflets are mildly thickened. There is no evidence of stenosis. There is trace to mild regurgitation. Aortic valve: The valve is trileaflet. The leaflets are mildly thickened. There is no evidence of stenosis. There is no regurgitation. Tricuspid valve: The valve is structurally normal. There is no evidence of stenosis. There is trace regurgitation. Pulmonic valve: The valve is structurally normal. There is no evidence of stenosis. There is no regurgitation. Aorta: Aortic root: The aortic root is not dilated. Ascending aorta: The ascending aorta is not dilated. Aortic arch: The aortic arch is not visualized. Pericardium: A prominent pericardial fat pad is present. There is no pericardial effusion. Pulmonary arteries: The main pulmonary artery is normal-sized. Systolic pressure is mildly increased, estimated to be 37 mm Hg. Systemic veins: Inferior vena cava: The vessel is normal in size. There is (< 50%) respiratory change in the IVC dimension. Measurements Left ventricle Value Ref Aortic valve Value Ref FABI, LAX 4.5 cm 4.2 - 5.8 Joie diam, ED 2.1 cm ---- ESD, LAX 2.8 cm 2.5 - 4.0 Peak v, S 1.6 m/sec ---- FS, LAX 38 % 25 - 43 VTI, S 38.9 cm ---- PW, ED (H) 1.2 cm 0.6 - 1.0 Mean grad, S 7.0 mm Hg ---- IVS/PW, ED 0.94 Peak grad, S 10.0 mm Hg ---- E', lat joie, TDI (L) 5.3 cm/sec >=10.0 LVOT/AV, VTI ratio 0.75 --- - E/e', lat joie, 17 TDI Mitral valve Value Ref E', med joie, TDI (L) 6.1 cm/sec >=7.0 Peak E 0.9 m/sec --- - E/e', med joie, 15 Peak A 1.12 m/sec ---- TDI Decel time 303 ms ---- E', avg, TDI 5.7 cm/sec Peak grad, D 3.3 mm Hg ---- E/e', avg, TDI (H) 16 <=14 Peak E/A ratio 0.8 --- - LVOT Value Ref Pulmonic valve Value Ref Peak booker, S 1.24 m/sec Peak v, S 0.74 m/sec ---- VTI, S 29.3 cm Peak grad, S 2.0 mm Hg ---- Peak grad, S 6 mm Hg Mean grad, S 4 mm Hg Tricuspid valve Value Ref Peak RV-RA grad, S 29 mm Hg ---- Ventricular septum Value Ref Max TR booker 2.7 m/sec ---- IVS, ED (H) 1.2 cm 0.6 - 1.0 Aortic root Value Ref Right ventricle Value Ref Root diam 3.4 cm <4.2 FABI, LAX 3.0 cm FABI minor ax, A4C 3.0 cm 1.9 - 3.5 Ascending aorta Value Ref mid AAo AP diam, S 3.1 cm ---- Pressure, S 37 mm Hg Pulmonary artery Value Ref Left atrium Value Ref Pressure, S 35.0 mm Hg ---- AP dim, ES 4.00 cm 3.00 - 4.00 Inferior vena cava Value Ref ML dim, A4C 4.5 cm Diam 1.9 cm ---- SI dim, A4C 6.5 cm Vol/bsa, ES, 1-p (H) 38 ml/m^2 12 - 37 A4C Vol/bsa, ES, A/L (H) 36 ml/m^2 16 - 34 Right atrium Value Ref ML dim, ES, A4C 3.7 cm 2.6 - 4.4 SI dim, ES, A4C (H) 6.2 cm 3.4 - 5.3 Estimated RAP 8 mm Hg Legend: (L) and (H) natanael values outside specified reference range. Prepared and electronically signed by Alfonso Nolasco MD 11/16/2018 12:41
[2018-11-16] MEDS ORDERED: Enoxaparin(*) 40 MG/0.4 ML SYR SUBCUT SCH (20:00)
[2018-11-16] MEDS: clonazePAM TAB(*) 0.5 MG PO PRN (20:49)
[2018-11-17 06:15] LABS: ABS Basophils 0.1 10^3/ul (0-0.2); ABS Eosinophils 0.6 10^3/ul (0-0.6); ABS Lymphocytes 3.3 10^3/ul (1.0-4.8); ABS Monocytes 0.8 10^3/ul (0-0.8); ABS Neutrophils 4.3 10^3/ul (1.5-7.7); Eosinophil % 6.8 %; Hematocrit 36 % (42-52); Lymphocyte % 36.7 %; Mean Corpuscular HGB Conc 33 g/dL (31-36); Mean Corpuscular Hemoglobin 27 pg (27-31); Mean Corpuscular Volume 82 fL (80-94); Mean Platelet Volume 7.8 fL (7.4-10.4); Nucleated Red Blood Cells % 0.1; Platelet Count 163 10^3/uL (150-450); Red Blood Count 4.37 10^6 /uL (4.18-5.48); Red Cell Distribution Width 16 % (10-15); White Blood Count 9.1 10^3/uL (3.5-10.8)
[2018-11-17 06:34] LABS: BUN/Creatinine Ratio 14.8 (8-20); Calcium 9.1 mg/dL (8.6-10.3); EGFR African American 56.3 (>60); EGFR Non-African American 46.5 (>60); HDL Cholesterol 43.1 mg/dL
[2018-11-17] MEDS: Insulin LISPRO* 1 UNITS UNIT SUBCUT SCH ×3 (10:06→16:54)
[2018-11-17] MEDS: Divalproex DR TAB(*) 250 MG PO SCH (10:21)
[2018-11-17] MEDS: DULoxetine DR CAP* 30 MG CAP.DR PO SCH (10:21)
[2018-11-17] MEDS: Gabapentin CAP(*) 300 MG PO SCH ×3 (10:21→16:36)
[2018-11-17] MEDS: Amantadine CAP* 100 MG PO SCH (10:21)
[2018-11-17] MEDS: Morphine TAB Extended Release (*) 15 MG TAB.ER PO SCH ×2 (10:22→16:31)
[2018-11-17] MEDS: Pantoprazole TAB * 40 MG TAB PO SCH (10:23)
[2018-11-17] MEDS: Aspirin EC TAB* 81 MG TAB.EC PO SCH (10:23)
[2018-11-17] MEDS: Folic Acid TAB* 1 MG PO SCH (10:23)
[2018-11-17] MEDS: Atorvastatin* 10 MG TAB PO SCH (10:24)
[2018-11-17] MEDS: Labetalol TAB* 200 MG PO SCH (10:24)
[2018-11-17] MEDS: Allopurinol TAB* 100 MG PO SCH (10:24)
[2018-11-17] MEDS: RIVASTIGMINE 9.5 MG TRANSDERM SCH (10:25)
[2018-11-17] MEDS: RIVASTIGMINE REMOVE PATCH OFF SCH (10:27)
[2018-11-17] MEDS ORDERED: Regadenoson* 0.4 MG/5 ML SYRINGE ONE (11:40)
[2018-11-17 17:41] VITALS: BP 170/73
--- NOTE | 2018-11-18 00:38 | DS ---
CC: Dr. Gema Cabral * DISCHARGE SUMMARY: DATE OF ADMISSION: 11/15/18 DATE OF DISCHARGE: 11/17/18 PROVIDER: CECI Fu ATTENDING PHYSICIAN WHILE IN THE HOSPITAL: Dr. Mariano Cabral * (dictated by CECI Fu) PRIMARY CARE PROVIDER: Dr. Gema Cabral. PRIMARY DIAGNOSES: 1. Syncope. 2. Elevated troponin of unclear etiology. SECONDARY DIAGNOSES: 1. Parkinson disease. 2. Hypertension. 3. Hyperlipidemia. 4. Carotid disease. 5. Diabetes mellitus type 2. 6. Charcot left foot. 7. Nephrolithiasis. 8. Irritable bowel syndrome. 9. Gout. 10. Gastroesophageal reflux disease. 11. Chronic pain. 12. Depression. STUDIES WHILE IN THE HOSPITAL: Transthoracic echocardiogram: No wall motion abnormalities. EF is 60% to 65%. First EKG on 11/15/[address] depressions in V4, V5 which are then resolved in later EKG. Nuclear medicine stress test on 11/17/18, no fixed or reversible perfusion defects. Assessment: Low risk. Brain CT on 11/15/18: Diffuse involutional change. No acute intracranial pathology. Pertinent lab data: Troponin 0.18 x3, then 0.17. HISTORY OF PRESENT ILLNESS/HOSPITAL COURSE: Lang Chapa is a 73-year-old male with past medical history significant for carotid artery stenosis of 60% on the left side and 50% on the right side, Parkinson disease, hypertension, hyperlipidemia, diabetes mellitus type 2, who presented to the emergency department on 11/15/18 after a fall. Please see further details dictated by CECI Luong for further full report. Given that the patient described to me that he typically has mechanical falls and typically has full recollection of every fall and often will gently lower himself to the ground, he did find it very confusing that he was found on the floor by his and has no recollection of any of the events. He experienced loss of consciousness and therefore, this event was believed to be a syncopal event. The patient initially arrived with troponin and small ST depressions and I had concern for an NSTEMI and he was given full dose of aspirin; however, the patient's stress test on the cardiac read as well as the nuclear scan was negative and low risk indicating that ACS is unlikely. Additionally, the patient was monitored on telemetry and he only had 1 event on telemetry of 5 beat V-tach. This was reviewed with Dr. Turpin who believes it was possible his troponin was elevated for another reason, possibly molecule interaction with his medication or maybe his elevated creatinine as it appears the patient likely has CKD. Dr. Turpin reviewed the telemetry strip and his EKGs and was concerned of his QT prolongation. His medications for Parkinson's were reviewed with Dr. Cosme. It does not appear that any of those medications are contributing with his QT prolongation. Medications reviewed by myself and clonazepam, duloxetine, and Depakote reviewed by myself and I do not believe these medications to be causing QT prolongation. At this point, ACS is ruled out; however, the cause of his syncopal event is unclear and it may possibly be due to arrhythmia. The patient was asymptomatic during his hospital stay and leading up to the syncopal event. He denies experiencing any lightheadedness or dizziness on the day of discharge. I would like to also note that given that his echocardiogram also is without wall motion changes, was reassuring and there were no valvular changes that would explain his syncopal event. CT of his brain upon arrival to emergency room is normal. On day of discharge, the patient is feeling well. Denies chest pain, difficulty breathing or shortness of breath, fever, chills, dizziness or lightheadedness, abdominal pain, nausea, or vomiting. PHYSICAL EXAMINATION: General: An elderly white male, lying in hospital bed, appearing comfortable, in no acute distress. Head: Normocephalic, atraumatic. Eyes: PERRL. Sclerae anicteric. ENT: Mucous membranes are moist. Lungs: Clear to auscultation throughout. Cardio: Regular rate and rhythm without murmurs, rubs, or gallops. Abdomen: Soft, nontender, nondistended. Extremities: No clubbing, cyanosis, or edema. Neuro: Alert and oriented x3. No focal deficits. DISCHARGE PLAN: Diet: Carbohydrate consistent diet. Activity: The patient may return to normal activity as tolerated. The patient is advised to follow up with his primary care provider, Dr. Gema Cabral within a week. He additionally has an appointment scheduled with Dr. Truong regarding his carotid artery disease scheduled for this week and he was advised to follow up as scheduled. At the time of followup with Dr. Elizabeth, he should have 30-day event monitor scheduled to further evaluate his syncopal event. It is possible that he does have chronically elevated troponin and this may be of benefit to test outpatient as the troponin remained elevated at approximately the same level on 4 reads. His troponin was even re-spun by the lab by my request and the results did not change. The patient was advised to return to emergency department if he experiences chest pain, shortness of breath , loss of consciousness, or presyncopal episode. Repeat BMP in the outpatient setting would also be of benefit to confirm whether the patient has CKD as this would be a good explanation for why his troponin was elevated during hospital stay. The patient was set up with [facility] to have further home PT as well. DISCHARGE MEDICATIONS: Continued home medications: 1. Acetaminophen 500 mg p.o. b.i.d. p.r.n. pain. 2. Duloxetine 30 mg p.o. daily. 3. Vitamin D 2000 units p.o. daily. 4. Calcium plus vitamin D one tab p.o. daily. 5. Aspirin 81 mg p.o. daily. 6. Amantadine 100 mg p.o. b.i.d. 7. Allopurinol 200 mg p.o. daily. 8. Depakote 250 mg p.o. b.i.d. 9. Lisinopril 10 mg p.o. at bedtime. 10. Lactulose 15 mL p.o. b.i.d. p.r.n. 11. Labetalol 100 mg p.o. b.i.d. 12. Gabapentin 600 mg p.o. 4 times a day. 13. Folic acid 1 mg p.o. daily. 14. Nasacort 1 spray both nares p.r.n. daily. 15. Multivitamin tab. 16. Morphine extended release 15 mg p.o. t.i.d. 17. Meloxicam 7.5 mg p.o. daily. 18. Clonazepam 0.5 mg p.o. at bedtime p.r.n. anxiety. 19. Rivastigmine patch 1 patch transdermally q.a.m. 20. Pravastatin 40 mg p.o. daily. 21. Percocet 10/325 one tab p.o. t.i.d. p.r.n. pain. 22. Omeprazole 20 mg p.o. daily. 23. Metformin 1000 mg p.o. daily. New discharge medications: None. CONDITION ON DISCHARGE: Stable. DISPOSITION: Home. TIME SPENT: Approximately 60 minutes were spent on this discharge, approximately half this time was spent discussing findings with specialists and reviewing plan of care with the patient. CECI FU [id number]/CPS #: [id number] [facility]
== END 2018-11-17 18:42 | disposition home or self-care (01) | DRG 312 ==
LOC: ED 09:12 → MEDTELE 14:00 → OBSVTOIN 11-16 11:00
PROVIDERS: ADMIT Internal Medicine; ATTEND Internal Medicine
PROC: 4A02XM4 Measurement of Cardiac Total Activity, External Approach (ICD-10-PCS; principal; 2018-11-16)
DX: R55 Syncope and collapse (principal); I47.2 Ventricular tachycardia; G20 Parkinson's disease; E78.5 Hyperlipidemia, unspecified; E11.610 Type 2 diabetes mellitus with diabetic neuropathic arthropathy; N20.0 Calculus of kidney; K58.9 Irritable bowel syndrome, unspecified; M10.9 Gout, unspecified; K21.9 Gastro-esophageal reflux disease without esophagitis; G89.29 Other chronic pain; F32.9 Major depressive disorder, single episode, unspecified; I65.29 Occlusion and stenosis of unspecified carotid artery; I45.81 Long QT syndrome; E11.40 Type 2 diabetes mellitus with diabetic neuropathy, unspecified; N18.9 Chronic kidney disease, unspecified; D72.829 Elevated white blood cell count, unspecified; D64.9 Anemia, unspecified; E11.22 Type 2 diabetes mellitus with diabetic chronic kidney disease; I12.9 Hypertensive chronic kidney disease with stage 1 through stage 4 chronic kidney disease, or unspecified chronic kidney disease; E78.00 Pure hypercholesterolemia, unspecified; M19.90 Unspecified osteoarthritis, unspecified site; E66.9 Obesity, unspecified; Z79.82 Long term (current) use of aspirin; Z79.891 Long term (current) use of opiate analgesic; Z79.84 Long term (current) use of oral hypoglycemic drugs; Z90.49 Acquired absence of other specified parts of digestive tract; Z98.42 Cataract extraction status, left eye; Z98.41 Cataract extraction status, right eye; Z82.49 Family history of ischemic heart disease and other diseases of the circulatory system; Z83.3 Family history of diabetes mellitus; Z84.1 Family history of disorders of kidney and ureter; Z87.891 Personal history of nicotine dependence; Z68.31 Body mass index [BMI] 31.0-31.9, adult
CPT/HCPCS: 36415; 70450; 71046; 78452; 80048; 80053; 80061; 81003; 81015; 83036; 83690; 84443; 84484; 85025; 87086; 93005; 93017; 93306; 99283; A9270-GY; A9502; G0378; G8978-GP-CI; G8979-GP-CI; G8980-GP-CI; J1650; J2785

== ENCOUNTER 2019-01-11 13:02 | Inpatient (IN) | payer MEDICARE ==
[2019-01-11] MEDS ORDERED: cefTRIAXone(*) 1 GM in NS 0.9% 50 ML* 50 ML IVPB ONE (13:49)
[2019-01-11] MEDS ORDERED: NS 0.9% 1000 ML** 1,000 ML IV.FLUID IV ONE (13:49)
[2019-01-11] MEDS ORDERED: Azithromycin 500 mg/250 ml NS 500 MG/250 ML BAG IVPB ONE (13:49)
--- NOTE | 2019-01-11 14:02 | ED ---
Shortness of Breath - HPI Summary HPI Summary: 73 year old M brought in by EMS to [facility] complains of shortness of breath since today 01/11/19 morning. Nurse reports fever 100.8 F noted at triage, pain and burning with urination, and tachycardia. Patient reports headache. Denies cough , abdominal pain, dizziness, vomiting, chest pain. The patient rates the pain of his headache 4/10 in severity. Symptoms aggravated by nothing. Symptoms alleviated by nothing. Patient states he does not wear nasal cannula oxygen at home. He states nasal cannula oxygen does not provide relief for his symptoms. PMHx: Parkinson's, pneumonia. Denies PMHx COPD. Vital signs while in room: HR 103 BPM, BP 171/101, O2 sat 98% Home Medications Medication Instructions Recorded Confirmed Type Allopurinol TAB* [Zyloprim 100 MG 200 mg PO QAM 11/03/17 01/11/19 History TAB*] Amantadine CAP* [Symmetrel CAP*] 100 mg PO BID 11/03/17 01/11/19 History Cholecalciferol (Vitamin D3) 2,000 unit PO QAM 11/03/17 01/11/19 History [Vitamin D3] DULoxetine DR CAP* [Cymbalta CAP*] 30 mg PO QAM 11/03/17 01/11/19 History Folic Acid TAB* [Folvite TAB*] 1 mg PO QAM 11/03/17 01/11/19 History Gabapentin TAB(NF) [Neurontin 600 600 mg PO QID 11/03/17 01/11/19 History mg TAB(NF)] Labetalol TAB* [Trandate TAB*] 100 mg PO BID 11/03/17 01/11/19 History Lactulose* 15 ml PO BID PRN 11/03/17 01/11/19 History Morphine TAB Extended Rel(*) [Ms 15 mg PO TID 11/03/17 01/11/19 History Contin(*)] Rivastigmine PATCH 9.5 MG(NF) 1 patch TRANSDERM QAM 11/03/17 01/11/19 History [Exelon PATCH(NF)] clonazePAM TAB(*) [Klonopin TAB(*)] 0.5 mg PO BEDTIME PRN 11/03/17 01/11/19 History metFORMIN* [Glucophage 1000 MG TAB 1,000 mg PO BID 11/03/17 01/11/19 History *] Acetaminophen [Acetaminophen Extra 1,000 mg PO BID PRN 01/11/19 01/11/19 History Strength] Aspirin EC TAB* [Ecotrin EC Low 81 mg PO DAILY 01/11/19 01/11/19 History Dose 81 MG*] Calcium Carb, Citrate/Vit D3 1 tab PO BID 01/11/19 01/11/19 History [Calcium+D3 Gradual Releas] Divalproex DR TAB(*) [Depakote DR 250 mg PO BID 01/11/19 01/11/19 History TAB(*)] Lisinopril TAB* [Prinivil TAB*] 10 mg PO DAILY 01/11/19 01/11/19 History Meloxicam(NF) [Mobic(NF)] 7.5 mg PO DAILY 01/11/19 01/11/19 History Multivitamins/Minerals TAB* 1 tab PO DAILY 01/11/19 01/11/19 History [Theragran/minerals TAB*] Omeprazole CAP (NF) [Prilosec CAP* 20 mg PO DAILY 01/11/19 01/11/19 History 20 MG] Pravastatin (NF) [Pravachol (NF)] 40 mg PO DAILY 01/11/19 01/11/19 History Triamcinolone NASAL SPRAY* 2 spray BOTH NARES BEDTIME 01/11/19 01/11/19 History [Nasacort AQ Nasal [place]oughton*] oxyCODONE/Acetamin 10/325(NF) 1 tab PO QID PRN 01/11/19 01/11/19 History [Percocet 10/325 (NF)] - History of Current Complaint Chief Complaint: EDShortnessOfBreath Hx Obtained From: Patient, EMS Onset/Duration: Lasting Hours - today 01/11/19 morning, Still Present Timing: Constant Current Severity: Mild Dyspnea At: Rest Aggravating Factors: Nothing Alleviating Factors: Nothing Associated Signs & Symptoms: Fever - Allergy/Home Medications Allergies/Adverse Reactions: Allergies Allergy/AdvReac Type Severity Reaction Status Date / Time No Known Allergies Allergy Verified 12/15/18 15:58 Home Medications: Home Medications Acetaminophen [Acetaminophen Extra Strength] 1,000 mg PO BID PRN 01/11/19 [ History Confirmed 01/11/19] Aspirin EC TAB* [Ecotrin EC Low Dose 81 MG*] 81 mg PO DAILY 01/11/19 [History Confirmed 01/11/19] Calcium Carb, Citrate/Vit D3 [Calcium + D3 ER Tablet] 1 tab PO BID 01/11/19 [ History Confirmed 01/11/19] Divalproex DR TAB(*) [Depakote DR TAB(*)] 250 mg PO BID 01/11/19 [History Confirmed 01/11/19] Lisinopril TAB* [Prinivil TAB 10 MG*] 10 mg PO DAILY 01/11/19 [History Confirmed 01/11/19] Meloxicam(NF) [Mobic(NF)] 7.5 mg PO DAILY 01/11/19 [History Confirmed 01/11/19] Multivitamins/Minerals TAB* [Theragran/minerals TAB*] 1 tab PO DAILY 01/11/19 [ History Confirmed 01/11/19] Omeprazole CAP (NF) [Prilosec CAP* 20 MG] 20 mg PO DAILY 01/11/19 [History Confirmed 01/11/19] Pravastatin (NF) [Pravachol (NF)] 40 mg PO DAILY 01/11/19 [History Confirmed 11/22] Triamcinolone NASAL SPRAY* [Nasacort Aq Nasal Houghton*] 2 spray BOTH NARES BEDTIME 01/11/19 [History Confirmed 01/11/19] oxyCODONE/Acetamin 10/325(NF) [Percocet 10/325 (NF)] 1 tab PO QID PRN 01/11/19 [ History Confirmed 01/11/19] PMH/Surg Hx/FS Hx/Imm Hx Previously Healthy: No Endocrine/Hematology History: Reports: Hx Diabetes, Hx Anemia Cardiovascular History: Reports: Hx Hypercholesterolemia, Hx Hypertension, Other Cardiovascular Problems/Disorders - left and right carotid blockage Denies: Hx Pacemaker/ICD Respiratory History: Reports: Hx Seasonal Allergies Denies: Hx Asthma GI History: Reports: Hx Gastroesophageal Reflux Disease, Hx Irritable Bowel, Other GI Disorders - chronic constipation History: Reports: Hx Kidney Stones - BILATERAL Musculoskeletal History: Reports: Hx Arthritis, Hx Back Problems - 2 lumbar laminectomy surgeries, Hx Bursitis - elbow, Hx Gout Sensory History: Reports: Hx Contacts or Glasses - to read, Hx Hearing Aid - both ears Opthamlomology History: Reports: Hx Contacts or Glasses - to read Neurological History: Reports: Hx Peripheral Neuropathy - DM, Other Neuro Impairments/Disorders - Charcot Roberta Tooth, Parkinson's Psychiatric History: Reports: Hx Depression Denies: Hx Panic Disorder - Surgical History Surgery Procedure, Year, and Place: Lumbar Laminectomy x2 20 years ago in [place]. SKIN GRAFTS ([place]). CHOLECYSTECTOMY. LITHOTRIPSY- multiple times. bilat cataract surgery with IOL. green light laser for prostate Hx Anesthesia Reactions: Yes - after 1 surgery had delayed urinary retention Infectious Disease History: No Infectious Disease History: Denies: Traveled Outside the [place] in Last 30 Days - Family History Known Family History: Positive: Cardiac Disease, Hypertension, Diabetes, Other - Parkinson's, pneumonia - Social History Alcohol Use: None Substance Use Type: Reports: None Hx Tobacco Use: Yes Smoking Status (MU): Former Smoker Type: Cigarettes Have You Smoked in the Last Year: No Review of Systems Positive: Fever Positive: Other - tachycardia. Negative: Chest Pain Positive: Shortness Of Breath. Negative: Cough Negative: Abdominal Pain, Vomiting Positive: burning, pain Musculoskeletal: Negative Skin: Negative Neurological: Negative - dizziness Positive: Headache Psychological: Normal All Other Systems Reviewed And Are Negative: Yes Physical Exam - Summary Physical Exam Summary: Appearance: Ill-appearing, no pain distress, well-nourished Skin: Warm, color reflects adequate perfusion, dry Head: Normal Head/Face inspection, atraumatic Eyes: Conjunctiva clear ENT: Dry mucosa Neck: Supple, no nodes, no JVD Respiratory: Decreased breath sounds, rales at both bases, no wheezing, tachypneic Cardio: Tachycardic and regular rhythm, No murmur, pulses normal, brisk capillary refill Abdomen: Soft, nontender Bowel sounds: Present Musculoskeletal: Strength Intact/ROM intact, no calf tenderness, no edema. Psychological: Normal Neuro: Alert, muscle tone normal, no focal deficit Triage Information Reviewed: Yes Vital Signs On Initial Exam: Initial Vitals Temp Pulse Resp BP Pulse Ox 100.8 F 120 24 144/88 98 01/11/19 13:20 01/11/19 13:20 01/11/19 13:20 01/11/19 13:20 01/11/19 13:20 Vital Signs Reviewed: Yes Procedures - Sedation Patient Received Moderate/Deep Sedation with Procedure: No Diagnostics - Vital Signs Vital Signs Temp Pulse Resp BP Pulse Ox 01/11/19 13:20 100.8 F 120 24 144/88 98 - Laboratory Result Diagrams: 01/13/19 05:11 01/13/19 05:11 Lab Statement: Any lab studies that have been ordered have been reviewed, and results considered in the medical decision making process. - Radiology CXR Radiology Interpretation Completed By: Radiologist Summary of Radiographic Findings: Minimal linear atelectasis versus pleural parenchymal scarring of the left lung base. ED physician has reviewed this report. - EKG 1423 Cardiac Rate: Tachycardia - 101 BPM EKG Rhythm: Sinus Tachycardia ST Segment: Non-Specific Ectopy: None EKG Comparison: No Significant Change - 11/16/18 Summary of EKG Findings: An EKG at 14:23 reveals sinus rhythm, nml AV/IV CT, nml QTc, and nml axis. No acute changes. Similar to prior EKG on 11/16/18. ED MD has reviewed and interpreted this EKG. Re-Evaluation - Re-Evaluation First Eval Re-Evaluation Time: 14:53 Change: Unchanged Comment: aware of lactic acid 2.8 Course/Dx - Course Course Of Treatment: 73 year old M brought in by EMS to [facility] complains of shortness of breath, headache, fever, pain and burning with urination, tachycardia since today 01/11/19 morning. Physical exam findings: The patient is ill-appearing and in no pain distress. He has decreased breath sounds, rales at both bases. He is tachypneic and tachycardic. Patient medications reviewed this visit. Nurses notes reviewed. Allergies noted. High blood pressure noted. Bloodwork results with no significant abnormalities except for Hgb 13.5, Hct 41, RDW 16, absolute neuts 7.9, absolute monocytes 1.1, glucose 164, lactic acid 2.8. Urinalysis results with no significant abnormalities except for trace ketones. Rapid flu tests positive for Influenza B. An EKG at 14:23 reveals sinus rhythm, nml AV/IV CT, nml QTc, and nml axis. No acute changes. Similar to prior EKG on 11/16/18. ED MD has reviewed and interpreted this EKG. CXR shows, per radiologist: Minimal linear atelectasis versus pleural parenchymal scarring of the left lung base. ED MD has reviewed this report. In the ED course, the patient was given Tylenol 650 mg PO, normal saline fluids 30cc/kg per sepsis protocol, Rocephin 1gm IV, and Zithromax 500 mg IV. Antibiotics were chosen to cover for possible sepsis due to UTI, or sepsis due to CAP. Patient meets 2 SIRS criteria with heart rate greater than 90 BPM, respiratory rate greater than 20, and suspected pdulmonary infection. With organ dysfunction with lactic acid greater than 2 (2.8) pt meets severe sepsis dx. Spoke with Dr. Sanches, hospitalist, who agrees to admit patient at 15:05. The patient will be admitted to the hospitalist. He is agreeable to this plan. - Diagnoses Differential Diagnosis/HQI/PQRI: Positive: CHF, Pneumonia, Other - UTI Provider Diagnoses: Severe sepsis, Poor hypertension control, Anemia, Thrombocytopenia, Influenza B - Physician Notifications Discussed Care of Patient With: Zenobia Sanches Time Discussed With Above Provider: 15:14 Instructed by Provider To: Other - Dr. Sanches, hospitalist, agrees to admit patient - Critical Care Time Critical Care Time: 30-74 min - 30 minutes Discharge ED - Sign-Out/Discharge Documenting (check all that apply): Patient Departure - Admit to hospitalist - Discharge Plan Condition: Improved Disposition: ADMITTED TO [facility] - Billing Disposition and Condition Condition: IMPROVED Disposition: Admitted to [facility] - Attestation Statements Document Initiated by Mariluz: Yes Documenting Scribe: Nakita Bravo Provider For Whom Rogere is Documenting (Include Credential): Ting Light MD Scribe Attestation: Nakita Mann, scribed for Ting Light MD on 01/31/19 at 2200. Scribe Documentation Reviewed: Yes Provider Attestation: The documentation as recorded by the scribeNakita accurately reflects the service I personally performed and the decisions made by me, Ting Light MD Status of Scribe Document: Viewed
[2019-01-11] MEDS ORDERED: Acetaminophen TAB* 325 MG PO ONE (14:10)
[2019-01-11 14:38] LABS: Hematocrit 41 % (42-52); Hemoglobin 13.5 g/dL (14.0-18.0); Mean Corpuscular HGB Conc 33 g/dL (31-36); Mean Corpuscular Hemoglobin 27 pg (27-31); Mean Corpuscular Volume 82 fL (80-94); Red Blood Count 4.93 10^6 /uL (4.18-5.48); Red Cell Distribution Width 16 % (10-15)
[2019-01-11 14:43] LABS: Activated Partial Thrombo Time 32.7 seconds (26.0-38.0); Albumin 4.3 g/dL (3.2-5.2); Albumin/Globulin Ratio 1.8 (1-3); BUN/Creatinine Ratio 16.4 (8-20); C Reactive Protein 6.3 mg/L (<8.01); Calcium 9.3 mg/dL (8.6-10.3); EGFR African American 75.1 (>60); EGFR Non-African American 62.1 (>60); Globulin 2.4 g/dL (2-4); INR 1.03 (0.82-1.09); Total Bilirubin 0.6 mg/dL (0.2-1.0); Total Protein 6.7 g/dL (6.4-8.9)
[2019-01-11 14:45] LABS: Troponin I 0.01 ng/mL (<0.04)
[2019-01-11 14:48] LABS: Urine Appearance Clear; Urine Bilirubin Negative (Negative); Urine Blood Negative (Negative); Urine Color Yellow; Urine Glucose Negative (Negative); Urine Ketones Trace (Negative); Urine Nitrite Negative (Negative); Urine Protein Negative (Negative); Urine Urobilinogen Negative (Negative)
[2019-01-11 15:02] LABS: Influenza B Molecular POSITIVE (Negative)
--- OUTSIDE RECORDS SUMMARY | 2019-01-11 15:09 | XMS REPORT | Continuity of Care Document ---
:1945 External Reference #:[id number] Author Name Alfonso Nolasco M.D. (transmitted by agent of provider Barby Abad) Address [address] [place] [address] Care Team Providers Name Role Phone Gema Cabral MD - Family Care Team Information Manager Federal [phone] Medicine Problems Active Problems Provider Date Parkinson's disease Kayden Cosme M.D. 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 Tablets Labetalol HCL 1 by mouth Unknown 100mg twice a day Tablets Lisinopril 1 by mouth Unknown 10mg Tablets every day Folic Acid 1 by mouth Unknown 1mg Tablets every day Acetaminophen 1 by mouth Unknown 500mg twice a day as Tablets needed Centrum Silver 1 by mouth Unknown Tablets every day Nasonex spray 2 sprays Unknown 50mcg/Act in each nostril Suspension once daily Calcium 1 two times a Unknown 250mg Capsules day Vitamin D3 1 by mouth Unknown 2000Unit every day Capsules Aspir-81 1 by mouth Unknown 81mg Tablets every day Oxycodone-Acetaminoph Take 1 Tablet Unknown en By Mouth Four 10-325mg Tablets Times Daily as Needed For Pain Pravastatin Sodium 1 po daily Unknown 40mg Tablets Omeprazole 1 po daily Unknown 20mg Capsules DR Morphine Sulfate Take 1 Tablet Unknown 15mg By Mouth Three Tablets Times Daily Maximum Daily Dose Of 3 Tablets Per Day Metformin HCL once every am a Unknown 1000mg day and pm Tablets Meloxicam 1 po daily Unknown 7.5mg Tablets Duloxetine HCL 1 po daily Unknown 30mg Caps DR Part Divalproex Sodium twice a day Unknown 250mg Tablets DR Allopurinol 1 po daily Unknown 200mg Tablets Clonazepam 1 po at hs Gema Allan MD 0.5mg Tablets Gabapentin take one tablet Unknown 600mg by mouth four Tablets times a day Exelon apply 1 patch Unknown 9.5mg/24HR to the skin Patches 24HR every 24 hours Immunizations Description No Information Available Vital Signs Date Vital Result Comment 01/05/2019 1:45pm Height 70 inches 5'10" Weight 206.44 lb with shoes Heart Rate 72 /min BP Systolic 128 mmHg Rue reg cuff BP Diastolic 76 mmHg Rue reg cuff BP Systolic Sitting 132 mmHg Lue reg cuff BP Diastolic Sitting 70 mmHg Lue reg cuff BP Systolic Standing 128 mmHg Lue reg cuff BP Diastolic Standing 60 mmHg Lue reg cuff Respiratory Rate 13 /min BMI (Body Mass Index) 29.6 kg/m2 Ejection Fraction 60-65% ECHO 11/16/2018 10/26/2018 1:47pm Height 70 inches 5'10" Weight 220.00 lb Heart Rate 70 /min BP Systolic 142 mmHg BP Diastolic 86 mmHg Respiratory Rate 18 /min Body Temperature 97.6 F Pain Level 8 BMI (Body Mass Index) 31.6 kg/m2 Results Description No Information Available Procedures Date Code Description Status 01/05/2019 93955 EKG Tracing & Interpretation Completed 11/17/2018 74393 Treadmill Interp/Report Only Completed 11/17/2018 82654 Stress Test Supervsn W/Out I/R Completed 11/16/2018 47791 ECHO Transthorasic Realtime 2D W Doppler & Color Flow Hosp Completed Medical Devices Description No Information Available Encounters Type Date Location Provider Dx Diagnosis Office Visit 11/17/2018 [facility] Shauna Cruz, R55 Syncope and 9:57a [facility]oc[facility] PA-C collapse R79.89 Other specified abnormal findings of blood chemistry G20 Parkinson's disease I10 Essential (primary) hypertension E78.5 Hyperlipidemia, unspecified I65.29 Occlusion and stenosis of unspecified carotid artery E11.9 Type 2 diabetes mellitus without complications M14.672 Charcot's joint, left ankle and foot N20.0 Calculus of kidney K58.9 Irritable bowel syndrome without diarrhea Office Visit 11/16/2018 9:56a [facility] Shauna I21.4 Non-St elevation Assoc,shaila Cruz PA-C ([facility]) Hospitalists myocardial infarction W19.xxxA Unspecified fall, initial encounter D72.829 Elevated white blood cell count, unspecified E11.69 Type 2 diabetes mellitus with other specified complication E66.9 Obesity, unspecified F32.9 Major depressive disorder, single episode, unspecified G20 Parkinson's disease Office Visit 11/15/2018 [facility] Daily G20 Parkinson's 9:56a [facility]oc,[facility] disease Hospitalists W19.xxxA Unspecified fall, initial encounter R79.89 Other specified abnormal findings of blood chemistry E11.9 Type 2 diabetes mellitus without complications I10 Essential (primary) hypertension G89.4 Chronic pain syndrome F32.9 Major depressive disorder, single episode, unspecified Office Visit 10/26/2018 [place] Moises Boles, E11.610 Type 2 diabetes 1:30p [facility] [place] diabetic neuropathic arthropathy Office Visit 10/18/2018 [place] Beka Monique G20 Parkinson's 1:45p Services Of Antonina Cosme M.D. disease Assessments Date Code Description Provider 01/05/2019 R55 Syncope and collapse Alfonso Nolasco M.D. 01/05/2019 I65.29 Occlusion and stenosis of Alfonso Nolasco M.D. unspecified carotid artery 11/17/2018 R55 Syncope and collapse Artur Chapa M.D., [facility] 11/17/2018 R55 Syncope and collapse Shauna Cruz PA-C 11/17/2018 R79.89 Other specified abnormal findings of Shauna Cruz PA-C blood chemistry 11/17/2018 G20 Parkinson's disease Shauna Cruz PA-C 11/17/2018 I10 Essential (primary) hypertension Shauna Cruz PA-C 11/17/2018 E78.5 Hyperlipidemia, unspecified Shauna Cruz, PA-C 11/17/2018 I65.29 Occlusion and stenosis of Shauna Cruz PA-C unspecified carotid artery 11/17/2018 E11.9 Type 2 diabetes mellitus without Shauna Flaca'rosy, PA-C complications 11/17/2018 M14.672 Charcot's joint, left ankle and foot Shauna Cruz PA- C 11/17/2018 N20.0 Calculus of kidney Shauna Cruz, PA-C 11/17/2018 K58.9 Irritable bowel syndrome without Shauna Flaca'rosy, PA-C diarrhea 11/16/2018 R94.31 Abnormal electrocardiogram [ECG] Alfonso Nolasco M.D. [EKG] 11/16/2018 I21.4 Non-St elevation ([facility]) myocardial Shauna Cruz PA-C infarction 11/16/2018 W19.xxxA Unspecified fall, initial encounter Shauna Cruz PA- C 11/16/2018 D72.829 Elevated white blood cell count, Shauna Cruz PA-C unspecified 11/16/2018 E11.69 Type 2 diabetes mellitus with other Shauna Cruz, PA-C specified complication 11/16/2018 E66.9 Obesity, unspecified Shauna Cruz, PA-C 11/16/2018 F32.9 Major depressive disorder, single Shauna Cruz PA-C episode, unspecified 11/16/2018 G20 Parkinson's disease Shauna Cruz PA-C 11/15/2018 G20 Parkinson's disease CEC[facility] Luong 11/15/2018 W19.xxxA Unspecified fall, initial encounter [facility]EC[facility] Luong 11/15/2018 R79.89 Other specified abnormal findings of CECI Luong blood chemistry 11/15/2018 E11.9 Type 2 diabetes mellitus without CECI Luong complications 11/15/2018 I10 Essential (primary) hypertension CECI Luong 11/15/2018 G89.4 Chronic pain syndrome CECI Luong 11/15/2018 F32.9 Major depressive disorder, single CECI Luong episode, unspecified 10/26/2018 E11.610 Type 2 diabetes mellitus with Moises Boles MD diabetic neuropathic arthropat 10/18/2018 G20 Parkinson's disease Kayden Cosme M.D. Plan of Treatment Future Appointment(s):02/18/2019 1:30 pm - Kayden Cosme M.D. at [facility]01/05/2019 - Alfonso Nolasco M.D.R55 Syncope and collapseFollow up:As illwpsL11.29 Occlusion and stenosis of unspecified carotid artery Functional Status Description No Information Available Mental Status Description No Information Available Referrals Description No Information Available
--- OUTSIDE RECORDS SUMMARY | 2019-01-11 15:09 | XMS REPORT | Continuity of Care Document ---
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 Onset: 03/11/2018 Social History Type Date Description Comments Sex Unknown ETOH Use Denies alcohol use Tobacco Use Start: Unknown End: Patient is a former smoker Unknown Smoking Status Reviewed: 10/26/18 Patient is a former smoker Exercise Type/Frequency [...] by mouth every Unknown 81mg Tablets day Oxycodone-Acetaminoph Take 1 Tablet By Unknown en [...] the skin every Patches 24HR 24 hours Immunizations Description No Information Available Vital Signs Date Vital Result Comment 10/26/2018 1:47pm Height 70 inches 5'10" Weight 220.00 lb Heart Rate 70 /min BP Systolic 142 mmHg BP Diastolic 86 mmHg Respiratory Rate 18 /min Body Temperature 97.6 F Pain Level 8 BMI (Body Mass Index) 31.6 kg/m2 10/18/2018 1:54pm Height 70 inches 5'10" Weight 222.00 lb Heart Rate 68 /min BP Systolic 142 mmHg BP Diastolic 98 mmHg BMI (Body Mass Index) 31.9 kg/m2 Results Description No Information Available Procedures Description No Information Available Medical Devices Description No Information Available Encounters Type Date Location Provider Dx Diagnosis Office Visit 10/26/2018 [facility] Moises Boles MD E11.610 Type 2 diabetes 1:30p Services Of mellitus w [facility] diabetic neuropathic arthropathy Office Visit 10/18/2018 [facility] Katelyn Garcia Parkinson' s 1:45p [facility] disease Office Visit 06/10/2018 [facility] Katelyn Garcia Parkinson' s 11:45a [facility] disease Assessments Date Code Description Provider 10/26/2018 E11.610 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 06/10/2018 G20 Parkinson's disease Kayden Cosme M.D. Plan of Treatment Future Appointment(s):02/18/2019 1:30 pm - Kayden Cosme M.D. at [facility]10/26/2018 - Moises Boles MDE11.610 Type 2 diabetes mellitus with diabetic neuropathic arthropatFollow up:Follow Up: As needed Functional Status Description No Information Available Mental Status Description No Information Available Referrals Description No Information Available
--- OUTSIDE RECORDS SUMMARY | 2019-01-11 15:09 | XMS REPORT | Continuity of Care Document ---
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 06/10/2018 G20 Parkinson's disease Kayden Cosme M.D. Plan of Treatment Future Appointment(s):02/18/2019 1:30 pm - Kayden Cosme M.D. at [facility]/26[facility]2018 - Moises Boles MDE11.610 Type 2 diabetes mellitus with diabetic neuropathic arthropatFollow up:Follow Up: As needed Functional Status Description No Information Available Mental Status Description No Information Available Referrals Description No Information Available
--- OUTSIDE RECORDS SUMMARY | 2019-01-11 15:09 | XMS REPORT | Continuity of Care Document ---
:1945 External Reference #:[id number] Author Name Ashley Campoverde Care Team Providers Name Role Phone Gema Cabral MD - Family Care Team Information Inspector Packager [phone] Medicine Problems Active Problems Provider Date Type [...] C.[place] diabetic neuropathic arthropathy Office Visit 10/18/2018 [facility] Katelyn Garcia Parkinson' s 1:45p [facility] disease Office Visit 06/10/2018 [facility] Katelyn Garcia Parkinson' s 11:45a [facility] disease Assessments Date Code Description Provider 10/26/2018 E11.610 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 06/10/2018 G20 Parkinson's disease Kayden Cosme M.D. Plan of Treatment Future Appointment(s):02/18/2019 1:30 pm - Kayden Cosme M.D. at [facility]10/26/2018 - Moises Boles MDE11.610 Type 2 diabetes mellitus with diabetic neuropathic arthropatFollow up:Follow Up: As needed Functional Status Description No Information Available Mental Status Description No Information Available Referrals Description No Information Available
--- OUTSIDE RECORDS SUMMARY | 2019-01-11 15:09 | XMS REPORT | Continuity of Care Document ---
:1945 External Reference #:[id number] Author Name Ashley Campoverde Care Team Providers Name Role Phone Gema Cabral MD - Family Care Team Information Credit Front Office Developer [phone] Medicine Problems Active Problems Provider Date Type [...] C.[place]as[place] diabetic neuropathic arthropathy Office Visit 10/18/2018 [facility] Katelyn Garcia Parkinson' s 1:45p [facility] disease Office Visit 06/10/2018 [facility] Katelyn Garcia Parkinson' s 11:45a [facility] [place] [place] disease Assessments Date Code Description Provider 10/26/2018 E11.610 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 06/10/2018 G20 Parkinson's disease Kayden Cosme M.D. Plan of Treatment Future Appointment(s):02/18/2019 1:30 pm - Kayden Cosme M.D. at [facility]10/26/2018 - Moises Boles MDE11.610 Type 2 diabetes mellitus with diabetic neuropathic arthropatFollow up:Follow Up: As needed Functional Status Description No Information Available Mental Status Description No Information Available Referrals Description No Information Available
--- OUTSIDE RECORDS SUMMARY | 2019-01-11 15:09 | XMS REPORT | Continuity of Care Document ---
:1945 External Reference #:[id number] Author Name Gema Cabral M.D. Address [address] [place] [address] Care Team Providers Name Role Phone Gema Cabral M.D. 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 Onset: 01/27/2018 Iron deficiency Gema Cabral M.D. Onset: 01/27/2018 Spinal stenosis Gema Cabral M.D. Onset: 01/27/2018 Essential hypertension Gema Cabral M.D. Onset: 01/27/2018 Neuropathy Gema Cabral M.D. Onset: 01/27/2018 Benign prostatic hypertrophy without outflow Gema Cabral M.D. Onset: 2017 obstruction Hyperlipidemia Gema Cabral M.D. Onset: 01/27/2018 Carotid artery occlusion Gema Cabral M.D. Onset: 06/09/2018 Acute non-ST segment elevation myocardial Gema Cabral M.D. Onset: 2018 infarction Social History Type Date Description Comments Sex Unknown Tobacco Use Start: Unknown End: Former Cigarette Smoker 2 Packs Daily Exercise Limitations Back Pain Exercise Limitations Joint Pain Allergies, Adverse Reactions, Alerts Description No Known Drug Allergies Medications Active Medications SIG Qnty Indications Ordering Date Provider Metformin HCL 1 by mouth twice a 180tabs Gema Cabral, 10/16/2018 1000mg day M.D. Tablets Lisinopril 1 by mouth every 30tabs Iker FOseas 03/23/2018 10mg day Shallish, MOseasDOseas Tablets Exelon daily Kasey HassanOseas 10/15/2017 9.5mg/24HR LUPE Hensley Patches 24HR Clonazepam take one tablet by 90tabs G47.00 Kasey Garcia 10/15/2017 0.5mg mouth at bedtime as LUPE Hensley Tablets needed for sleep Code C Amantadine HCL take one by mouth 180caps G2 [facility] 10/15/2017 100mg twice daily, at 9am M.D. Capsules and 11pm Rivastigmine one patch 30units G2 [facility] 10/15/2017 Transdermal System transdermal daily M.D. 9.5mg/24HR Patches 24HR Oxycodone-Acetaminop take one by mouth 4 60tabs G89.4 Kasey Garcia 10/15/2017 hen times daily as LUPE Hensley 10-325mg Tablets needed for breakthrough pain Lactulose take bid Unknown 10GM/15ML Solution Aspirin Adult Low 1 by mouth every Unknown Dose day 81mg Tablets DR Morphine Sulfate ER 1 by mouth three Unknown times a day 15mg Caps ER 24HR Folic Acid 1 by mouth every Unknown 1mg day Tablets Labetalol HCL 1/2 pill by mouth 180tabs [facility] 200mg twice a day M.D. Tablets Pravachol 1 by mouth every Unknown 40mg day Tablets Acetaminophen 2 tabs by mouth Unknown 500mg three times a day Tablets as needed Multi-Vitamin once daily otc Unknown Tablets Omeprazole 1 by mouth every Unknown 20mg day Capsules DR Meloxicam once daily Unknown 7.5mg Tablets Gabapentin take 1 tablet by Unknown 600mg mouth four times a Tablets day Nasacort Allergy spray 2 sprays in Unknown 24HR each nostril at 55mcg/Act bedtime Aerosol Duloxetine HCL 1 by mouth every Unknown 30mg day Caps DR Mynor Wylie 1 by mouth twice a 180tabs [facility] 250mg day M.D. Tablets Calcium + D3 1 by mouth twice a Unknown day 250mg-Unit Tablets Vitamin D3 1 by mouth every Unknown 2000Unit day Capsules Allopurinol 1 by mouth every Unknown 200mg day Tablets History Medications Metformin HCL ER 1 tab twice a 60tabs Gema Cabral M.D. 10/12/2018 - (Mod) day 10/16/2018 1000mg Tablets ER 24HR Immunizations Description No Information Available Vital Signs Date Vital Result Comment 11/22/2018 2:24pm BP Systolic 170 mmHg BP Diastolic 110 mmHg Heart Rate 76 /min Body Temperature 98.2 F Respiratory Rate 16 /min Height 69.5 inches 5'9.50" Weight 213.00 lb BMI (Body Mass Index) 31.0 kg/m2 10/12/2018 1:11pm BP Systolic 140 mmHg BP Diastolic 70 mmHg Heart Rate 74 /min Respiratory Rate 16 /min Height 69.5 inches 5'9.50" Weight 220.00 lb BMI (Body Mass Index) 32.0 kg/m2 Results Test Date Facility Test Result H/L Range Note Laboratory test [facility] Troponin I 0.18 ng/mL Critical high <0.04 1 finding 9 CBC Auto Diff [facility] White Blood 13.2 High 3.5-10.8 9 Count 10^3/uL Red Blood Count 4.98 10^6/uL Normal 4.18-5.48 Hemoglobin 13.4 g/dL Low 14.0-18.0 Hematocrit 40 % Low 42-52 Mean Corpuscular Volume 81 fL Normal 80-94 Mean Corpuscular Hemoglobin 27 pg Normal 27-31 Mean Corpuscular HGB Conc 33 g/dL Normal 31-36 Red Cell Distribution Width 16 % High 10-15 Platelet Count 158 10^3/uL Normal 150-450 Mean Platelet Volume 8.1 fL Normal 7.4-10.4 Abs Neutrophils 10.4 10^3/uL High 1.5-7.7 Abs Lymphocytes 1.2 10^3/uL Normal 1.0-4.8 Abs Monocytes 1.5 10^3/uL High 0-0.8 Abs Eosinophils 0.1 10^3/uL Normal 0-0.6 Abs Basophils 0.0 10^3/uL Normal 0-0.2 Abs Nucleated RBC 0.0 10^3/uL Granulocyte % 78.7 % Lymphocyte % 9.4 % Monocyte % 11.0 % Eosinophil % 0.6 % Basophil % 0.3 % Nucleated Red Blood Cells % 0.0 Laboratory test finding 11/15/2018 [facility] Troponin I 0.18 ng/mL Critical high <0.04 2 Comp Metabolic Panel 11/15/2018 [facility] Sodium 137 mmol/L Normal 135-145 Potassium 4.5 mmol/L Normal 3.5-5.0 Chloride 102 mmol/L Normal 101-111 Co2 Carbon Dioxide 24 mmol/L Normal 22-32 Anion Gap 11 mmol/L Normal 2-11 Glucose 218 mg/dL High 70-100 Blood Urea Nitrogen 16 mg/dL Normal 6-24 Creatinine 1.32 mg/dL High 0.67-1.17 BUN/Creatinine Ratio 12.1 Normal 8-20 Calcium 9.6 mg/dL Normal 8.6-10.3 Total Protein 6.7 g/dL Normal 6.4-8.9 Albumin 4.2 g/dL Normal 3.2-5.2 Globulin 2.5 g/dL Normal 2-4 Albumin/Globulin Ratio 1.7 Normal 1-3 Total Bilirubin 0.80 mg/dL Normal 0.2-1.0 Alkaline Phosphatase 68 U/L Normal 34-104 Alt 26 U/L Normal 7-52 Ast 36 U/L Normal 13-39 Egfr Non- 53.5 >60 Egfr 64.7 >60 3 Laboratory test finding 11/15/2018 [facility] Lipase 23 U/L Normal 11.0-82.0 TSH (Thyroid Stim Horm) 0.90 mcIU/mL Normal 0.34-5.60 Urinalysis Profile 11/15/2018 [facility] Urine Color Yellow Urine Appearance Clear Urine Specific [place] 1.015 Normal 1.010-1.030 Urine pH 6.0 Normal 5-9 Urine Urobilinogen Positive Abnormal Negative Urine Ketones 1+ Abnormal Negative Urine Protein 1+(30 mg/dL) Abnormal Negative Urine Leukocytes Negative Negative Urine Blood Negative Negative * * Abnormal Negative 4 Urine Nitrite Negative Negative Urine Bilirubin Negative Negative Urine Glucose Negative Negative Urine White Blood Cell Trace(0-5/hpf) Absent Urine Red Blood Cell Trace(0-2/hpf) Absent Urine Bacteria Absent Absent Urine Culture And 11/15/2018 [facility] Urine Culture SEE RESULT 5 Sensitivities BELOW Laboratory test 09/28/2018 [facility] Hemoglobin A1c 6.9 % High 4.1- 5. finding (607)- - (a) 7 Laboratory test 09/28/2018 [facility]) TSH 3.42 mIU/L 0.50-6 finding .00 CBC Electronic a 09/28/2018 [facility]) WBC 7.4 x10^3/UL 4.0- 10 .0 RBC 4.91 x10^6/UL 3.93-6.00 HGB 13.3 g/dL 12.0-17.0 HCT 41 % 35-50 MCV 84.1 fL 80.0-95.0 MCH 27.1 pg 25.6-32.2 MCHC 32.2 g/dL 32.2-36.0 RDW-CV 14.4 % 11.6-14.4 PLT 169 x10^3/UL 163-400 MPV 9.4 fL 9.4-12.4 Maurice# 3.25 x10^3/UL 1.56-6.13 Lymph# 2.78 x10^3/UL 1.18-3.74 Graves# 0.66 x10^3/UL 0.24-0.82 Eos # 0.6 x10^3/UL High 0.0-0.5 Baso # 0.04 x10^3/UL 0.01-0.08 Maurice% 44.1 % 34.0-70.0 Lymph % 37.7 % 20.0-52.0 Graves% 9.0 % 5.0-12.0 Eos% 8.4 % High 0.7-7.0 Baso% 0.5 % 0.1-1.2 Comprehensive Metabolic 09/28/2018 [facility] Freire([facility]) Sodium 137 mEq/L 134-149 Prof Potassium 4.6 mEq/L 3.6-5.5 Chloride 102 mEq/L 94-112 Carbon Dioxide 25 mEq/L 21-32 Glucose 134 mg/dL High 70-105 6 BUN 17 mg/dL 6-26 Creatinine 1.3 mg/dL 0.6-1.4 BUN/Creat Ratio 13.1 CALC 8.0-36.0 Calcium 9.2 mg/dL 8.6-10.2 Total Protein 6.9 g/dL 6.4-8.3 Albumin 4.6 g/dL 3.8-5.5 Globulin 2.3 g/dL 2.0-4.8 A/G Ratio 2.0 CALC 0.6-2.3 Alk. Phosphatase 65 U/L 22-95 Alt (SGPT) 23 U/L 7-35 Ast (Sgot) 25 U/L 5-34 Total Bilirubin 0.5 mg/dL 0.2-1.3 GFR Non- 58 ml/min/1.73m^ Low >=60 GFR >60 ml/min/1.73m^ >=60 Lipid Profile 09/28/2018 [facility]) Cholesterol 167 mg/dL 120- 200 Triglycerides 280 mg/dL High 30-200 HDL Cholesterol 47 mg/dL 30-70 LDL (Calculated) 64 CALC 0-129 VLDL Cholesterol 56 mg/dL High 0-50 HDL Risk Factor 3.6 CALC 0.0-4.4 Laboratory test 09/28/2018 [facility]) LDL, Direct 76 mg/dL 0- 130 finding Laboratory test 05/31/2018 [facility] 128 mg/dL High 70-100 7 finding Glucose 1 Result TnIDx:0.18 Called to [id number] at: 14:20:08 by:[id number] Read back by: [id number] Troponin-I testing on Plasma Separator Tubes (PST) has a known false positive rate of 0.20-0.40%. All positive troponins reflex immediately to secondary confirmatory testing. Using the Room DxI 800 Access Immunoassay systems, the 99th percentile upper reference limit was demonstrated to be < 0.03 ng/mL. 2 Result TnIDx:0.18 Called to [id number] at: 11:14:46 by:[id number] Read back by: [id number] Troponin-I testing on Plasma Separator Tubes (PST) has a known false positive rate of 0.20-0.40%. All positive troponins reflex immediately to secondary confirmatory testing. Using the Room DxI 800 Access Immunoassay systems, the 99th percentile upper reference limit was demonstrated to be < 0.03 ng/mL. 3 Because ethnic data is not always readily available, this report includes an eGFR for both -Americans and non- Americans. The National Kidney Disease Education Program (NKDEP) does not endorse the use of the MDRD equation for patients that are not between the ages of 18 and 70, are , have extremes of body size, muscle mass, or nutritional status, or are non- or non-. According to the National Kidney Foundation, irrespective of diagnosis, the stage of the disease is based on the level of kidney function: Stage Description GFR(mL/min/1.73 m(2)) 1 Kidney damage with normal or decreased GFR 90 2 Kidney damage with mild decrease in GFR 60-89 3 Moderate decrease in GFR 30-59 4 Severe decrease in GFR 15-29 5 Kidney failure <15 (or dialysis) 4 *Ascorbic acid is present which may interfere with detection of blood. 5 SEE RESULT BELOW Name: LANG CHAPA : [address]: Chon Guy MD Acct: [id number] Unit: [id number] AGE: 73 Location: [place] [address] Re11/15/18 SEX: M Status: ADM Joseph SPEC: [id number] LILLI: 11/15/185 [facility] DR: Charles Gagnon MD REQ: [id number] RECD: 11/15/181237 STATUS: RODRIGO PATIÑO DR: Gema Cabral MD _ SOURCE: URINE SPDESC: ORDERED: Urine Culture Procedure Result Reported Site Urine Culture Final 11/16/18- 1253 ML No Growth (<1,000 CFU/mL) * ML - Main Lab . END OF REPORT DEPARTMENT OF PATHOLOGY, [address] [place] [address] Lang Nixon M.D. Director [facility] # [id number] RESULTS VERIFIED BY REPEAT ANALYSIS 7 Boom Stick Worker: [id number] Procedures Date Code Description Status 04/06/2016 [id number] Colonoscopy Completed Medical Devices Description No Information Available Encounters Type Date Location Provider Dx Diagnosis Office Visit 10/12/2018 [facility] Gema Cabral, I10 Essential ( primary) 1:00p M.DOseas hypertension G89.4 Chronic pain syndrome E08.42 Diabetes due to underlying condition w diabetic polyneurop E78.5 Hyperlipidemia, unspecified M14.672 Charcot's joint, left ankle and foot D64.9 Anemia, unspecified R26.81 Unsteadiness on feet Office Visit 06/09/2018 1:00p [facility] Gema Cabral, I10 Essential (primary) M.DOseas hypertension G89.4 Chronic pain syndrome E78.5 Hyperlipidemia, unspecified E08.42 Diabetes due to underlying condition w diabetic polyneurop I65.22 Occlusion and stenosis of left carotid artery Assessments Date Code Description Provider 11/22/2018 I10 Essential (primary) hypertension Gema Cabral M.D. 11/22/2018 R55 Syncope and collapse Gema Cabral M.D. 11/22/2018 G20 Parkinson's disease Gema Cabral M.D. 11/22/2018 G89.4 Chronic pain syndrome Gema Cabral M.D. 10/12/2018 I10 Essential (primary) hypertension Gema Cabral M.D. 10/12/2018 G89.4 Chronic pain syndrome Gema Cabral M.D. 10/12/2018 E08.42 Diabetes mellitus due to underlying condition Gmea Cabral M.D. with diabetic 10/12/2018 E78.5 Hyperlipidemia, unspecified Gema Cabral M.D. 10/12/2018 M14.672 Charcot's joint, left ankle and foot Gema Cabral M.D. 10/12/2018 D64.9 Anemia, unspecified Gema Cabral M.D. 10/12/2018 R26.81 Unsteadiness on feet Gema Cabral M.D. 09/28/2018 E08.42 Diabetes due to underlying condition w diabetic Gema Cabral M.D. polyneurop 09/28/2018 E78.5 Hyperlipidemia, unspecified Gema Cabral M.D. 09/28/2018 E78.1 Pure hyperglyceridemia Gema Cabral M.D. 06/09/2018 I10 Essential (primary) hypertension Gema Cabral M.D. 06/09/2018 G89.4 Chronic pain syndrome Gema Cabral M.D. 06/09/2018 E78.5 Hyperlipidemia, unspecified Gema Cabral M.D. 06/09/2018 E08.42 Diabetes mellitus due to underlying condition Gema Cabral M.D. with diabetic 06/09/2018 I65.22 Occlusion and stenosis of left carotid artery Gema Cabral M.D. Plan of Treatment Future Appointment(s):02/01/2019 2:40 pm - Gema Cabral M.D. at [facility]11/22/2018 - Gema Cabral M.D.I10 Essential (primary) hypertensionComments:The patient will continue to monitor blood pressure and let me know the blood pressure results if there are readings persistently above 140/90. Goal blood pressure is less than 130/80. Recommend low salt/cardiac diet such as the Mediterranean diet and routine exercise at least 30 minutes a day. continue aspirin, hold on adjustments as blood pressure is variable to as low 90/40, consider taking extra lisinopril on >160/100Follow up:2 moR55 Syncope and collapseComments:?tia vs arrhythmia, refer cardiology for possible 30 day event [id number] Parkinson's diseaseNew Xrays:MRI Brain W/Out And Then W/ Contrast, Ordered: 11/22/18Comments:has VNS, sees Dr Cosme, to check MRI brain for possible other causes such as TIA; to have OT and PTG89.4 Chronic pain syndromeComments:use walker consistently, wear orthotics and shoes at home too ; sees pain clinic but considering transition hereAllComments:Medication Management Patient Understands medications he's taking? Yes No Are there Barriersto Adherence? Yes No Has the patient been asked about herbal supplements and therapies, and OTC meds? Yes No Functional Status Description No Information Available Mental Status Description No Information Available Referrals Refer to Reason for Referral Status Appt Date Moises Boles MD chronic fracture and left foot arthritis jw Scheduled [address] [place], [place] [phone]
--- OUTSIDE RECORDS SUMMARY | 2019-01-11 15:09 | XMS REPORT | Continuity of Care Document ---
:1945 External Reference #:[id number] Author Name Ashley Campoverde Care Team Providers Name Role Phone Gema Cabral MD - Family Care Team Information Fashion Coordinator [phone] Medicine Problems Active Problems Provider Date Type [...] C.MOseasAOseas diabetic neuropathic arthropathy Office Visit 10/18/2018 [facility] Katelyn Garcia Parkinson' s 1:45p [facility] disease Office Visit 06/10/2018 [facility] Katelyn Garcia Parkinson' s 11:45a [facility] disease Assessments Date Code Description Provider 10/26/2018 E11.610 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 06/10/2018 G20 Parkinson's disease Kayden Cosme M.D. Plan of Treatment Future Appointment(s):02/18/2019 1:30 pm - Kayden Cosme M.D. at [facility]10/26/2018 - Moises Boles MDE11.610 Type 2 diabetes mellitus with diabetic neuropathic arthropatFollow up:Follow Up: As needed Functional Status Description No Information Available Mental Status Description No Information Available Referrals Description No Information Available
[2019-01-11 15:16] LABS: White Blood Count 10.1 10^3/uL (3.5-10.8)
[2019-01-11 15:24] LABS: Platelet Count 156 10^3/uL (150-450)
[2019-01-11 15:30] LABS: ABS Eosinophils 0.1 10^3/ul (0-0.6)
[2019-01-11 16:30] LABS: Erythrocyte Sed Rate 10 mm/Hr (0-19)
[2019-01-11] MEDS ORDERED: NS 0.9% 1000 ML** 1,000 ML IV SCH (18:00)
[2019-01-11] MEDS ORDERED: Lactulose* 15 ML UDC PO PRN (18:04)
[2019-01-11] MEDS ORDERED: hydrALAZINE IV* 20 MG/ML VIAL IV SLOW PU PRN (18:12)
[2019-01-11] MEDS: Labetalol TAB* 100 MG PO SCH (18:19)
[2019-01-11] MEDS ORDERED: Dextrose 50% VIAL 50 ml IV PUSH PRN (19:41)
[2019-01-11] MEDS: Acetaminophen TAB* 325 MG PO PRN (21:30)
[2019-01-11] MEDS ORDERED: Ondansetron INJ* 2 MG/ML VIAL IV PRN (21:42)
[2019-01-11] MEDS ORDERED: oxyCODONE/Acetamin 5/325 MG* TAB PO PRN (21:42)
--- NOTE | 2019-01-11 21:46 | PN ---
Sepsis Event Evaluation Date of Evaluation: 01/11/19 Time of Evaluation: 18:00 Current Stage of Sepsis: Sepsis Vital Signs - Last 12 Hours: Vital Signs - 12 hr Temp Pulse Resp BP Pulse Ox 01/11/19 20:56 97.5 F 80 16 197/77 99 01/11/19 20:01 25 162/95 01/11/19 20:00 99 F 95 25 162/95 97 01/11/19 19:57 28 187/103 01/11/19 19:52 86 25 206/97 97 01/11/19 19:38 17 214/95 01/11/19 19:30 78 18 97 01/11/19 19:01 82 15 97 01/11/19 18:59 83 17 96 01/11/19 18:30 90 15 181/88 98 01/11/19 18:21 92 16 209/95 98 01/11/19 18:00 23 01/11/19 17:01 90 17 95 01/11/19 16:59 91 22 95 01/11/19 16:57 98.3 F 01/11/19 16:29 91 20 169/81 94 01/11/19 16:01 94 25 94 01/11/19 15:59 94 23 192/89 94 01/11/19 15:35 95 15 190/102 95 01/11/19 15:34 101.4 F 01/11/19 15:00 27 01/11/19 14:35 101 25 179/98 94 01/11/19 14:21 110 21 94 01/11/19 14:20 97 01/11/19 14:00 118 25 171/101 94 01/11/19 13:20 100.8 F 120 24 144/88 98 Lactic Acid: 01/11/19 01/11/19 14:14 18:10 Lactic Acid 2.8 H* 1.1 - Cardiopulmonary Exam Capillary Refill: Immediate Respiratory: Clear to Auscultation Cardiovascular: NL Sounds; No Murmurs; No JVD, No Edema - Peripheral Pulse Exam Radial Pulses: Bilateral Normal Pedal Pulses: Bilateral Normal - Skin Exam Skin Exam: Normal Turgor - Nat Coma Scale Best Eye Response: 4 - Spontaneous Best Motor Response: 6 - Obeys Commands Best Verbal Response: 5 - Oriented Coma Scale Total: 15 Assess/Plan/Problems-Billing Assessment: - Patient Problems (1) Sepsis Current Visit: Yes Status: Acute Comment: repeat lactic acid has normalized - no longer severe sepsis - Sepsis likely related to influenza - will continue tamiflu
--- NOTE | 2019-01-11 21:49 | HP ---
CC: Dr. Gema Cabral * HISTORY AND PHYSICAL: DATE OF ADMISSION: 01/11/19 PROVIDER: Samia Rodriguez NP PRIMARY CARE PROVIDER: Dr. Gema Cabral. ATTENDING PHYSICIAN WHILE IN THE HOSPITAL: Dr. Iliana Wright * (dictated by Samia Rodriguez NP). CHIEF COMPLAINT: Fever, shortness of breath. HISTORY OF PRESENT ILLNESS: The patient reports that he was feeling more fatigued. He reports when the aide came by to visit him today, the patient seemed more short of breath, so she called EMS and the patient was brought into the emergency room for further evaluation by ambulance. The patient reports that he felt fine last night when he went to bed, he had no complaints. Son did check on him yesterday and reports that the patient seemed fine. The patient does report that he has been traveling to see his who is in rehab in [place]. While in the emergency room, the patient had routine lab work drawn. He was found to have a fever of 101.4. He was tachycardic with heart rate of 118 and tachypneic with respirations of 25, also found to have lactic acid of 2.8 and a positive influenza swab. Due to these findings, the patient met severe sepsis criteria and hospital medicine was asked to see and evaluate for admission. PAST MEDICAL HISTORY: Significant for Parkinson's disease, hypertension, hyperlipidemia, carotid disease left greater than right, diabetes type 2, diabetic neuropathy, Charcot of the left foot, history of nephrolithiasis, IBS, gout, GERD, chronic pain, and depression. PAST SURGICAL HISTORY: Lumbar spinal surgery x2, lithotripsy, cholecystectomy, bilateral cataracts, GreenLight laser of PVP, skin graft, tonsillectomy. HOME MEDICATIONS: Include: 1. Metformin 1000 mg 1 tablet b.i.d. 2. Lisinopril 10 mg p.o. every day. 3. Exelon 9.5 mg daily. 4. Clonazepam 0.5 mg 1 tablet at bedtime as needed for sleep. 5. Amantadine HCL 100 mg 1 tablet twice daily. 6. Oxycodone/acetaminophen 10/325 one tablet 4 times a day as needed for pain. 7. Allopurinol 200 mg p.o. daily. 8. Vitamin D3 of 2000 units p.o. daily. 9. Calcium plus D3 of 250 mg 1 tablet p.o. b.i.d. 10. Depakote 250 mg 1 tablet b.i.d. 11. Duloxetine 30 mg every day. 12. Nasacort 55 mcg 2 sprays each nostril at bedtime p.r.n. 13. Gabapentin 600 mg 1 tablet 4 times a day. 14. Meloxicam 7.5 mg daily. 15. Omeprazole 1 mg every day. 16. Multivitamin 1 tab p.o. daily. 17. Acetaminophen 500 mg 2 tablets by mouth 3 times a day as needed. 18. Pravachol 40 mg every day. 19. Labetalol 200 mg half a tablet twice daily. 20. Morphine 15 mg 1 tablet 3 times a day. 21. Aspirin 81 mg p.o. daily. 22. Lactulose 10 grams 15 mL b.i.d. ALLERGIES: No known drug allergies. FAMILY HISTORY: Father with a history of hypertension, diabetes, and heart disease. Mother with a history of kidney disease and hypertension. Maternal grandfather with diabetes. SOCIAL HISTORY: The patient reports that he stopped smoking approximately 1.5 years ago, prior to that he smoked 2 to 2-1/2 packs a day for 25 to 30 years. He denies any alcohol or illicit drug use. He is . He lives with his . Surrogate decision maker in the event he is unable to make his own decisions is his . REVIEW OF SYSTEMS: The patient denies any fever, chills, unintended weight loss , chest pain, edema, cough, hemoptysis. He does report some mild shortness of breath that has now resolved. He denies any gross hematuria, dysuria, focal weakness, sensory loss. Denies any visual complaints, dysphagia, arthralgias, myalgias, rashes, lesions, open sores, psychosis, or anxiety. PHYSICAL EXAMINATION GENERAL: At this time, Mr. Chapa is a 73-year-old male. He is resting comfortably on the stretcher in the emergency room. He is in no acute distress. VITAL SIGNS: Blood pressure 169/81, heart rate 92, respirations are 20, O2 saturation 94%, temperature is 98.3. HEENT: Head is atraumatic and normocephalic. Eyes: EOMs are intact. Sclerae anicteric and not pale. Oral mucosa appeared to be moist. NECK: Supple. LUNGS: Diminished bilaterally. There are no wheezes, rales, or rhonchi. CARDIAC: S1, S2. Regular rate and rhythm. No rubs or gallops. ABDOMEN: Soft and nontender. Bowel sounds are present x4. He is able to move all 4 extremities. There is no clubbing or cyanosis. NEUROLOGIC: He is awake, alert, and oriented x3. Speech is clear. Thought process is intact. There are no gross focal deficits. SKIN: Intact. DIAGNOSTIC STUDIES/LAB DATA: WBCs are 10.1, RBCs 4.93, hemoglobin 13.5, hematocrit was 41, platelet count 156. ESR was 10. INR was 1.03. Sodium 138, potassium 5.0, chloride 103, carbon dioxide was 24, anion gap was 11, BUN was 19 , creatinine 1.16, glucose was 164. Lactic acid was 2.8, repeat was 1.1. ASTs were 24, ALTs were 20, alkaline phosphatase was 66. Total CK was 38. Troponin was 0.01. C-reactive protein was 6.30. Urine was within normal limits with the exception of trace ketones. He did have positive influenza. He had a chest x-ray, radiologist impression: Minimal linear atelectasis versus pleural parenchymal scarring on the left lung base. He had an electrocardiogram, which showed sinus tachycardia, rate of 101. IMPRESSION: Mr. Chapa is a 73-year-old male with a past medical history significant for Parkinson's disease, hypertension, hyperlipidemia, type 2 diabetes, diabetic neuropathy, history of irritable bowel syndrome, chronic pain , gastroesophageal reflux disease, depression, who presented to the emergency room with complaints of shortness of breath and found to have influenza, meeting sepsis criteria. The patient will be admitted for: 1. Severe sepsis related to influenza, evidenced by increased heart rate, fever , and tachypnea . For the source of of infection of influenza, at this time, the patient does not appear to have pneumonia. I suspect his sepsis is related to influenza. I will place him on Tamiflu, give him some IV fluids overnight. We will monitor him for any further decompensation. I will hold off continuing antibiotics at this time as his underlying sepsis appears to be related to the flu. We will send a urine for Legionella and Streptococcus pneumoniae. Blood cultures are currently pending. Urine culture is currently pending. 2. Type 2 diabetes. I will hold his metformin. I will place him on lispro sliding scale with fingersticks a.c. 3. Chronic pain. The patient should continue on his morphine as previously prescribed and gabapentin. 4. Gout. He should continue on allopurinol as previously prescribed. 5. Hypertension. He should continue on labetalol. I am going to hold his lisinopril due to his underlying sepsis at this time. 6. Parkinson's. He should continue on his Exelon patch as previously prescribed. 7. Depression. He should continue on duloxetine 30 mg p.o. daily as previously prescribed. 8. Gastroesophageal reflux disease. He should continue on omeprazole 20 mg p.o. daily. 9. Hyperlipidemia. He should continue on Pravachol 40 mg p.o. daily. 10. FEN. He can have heart healthy, caffeine okay diet. 11. Code status. He is a full code. 12. DVT prophylaxis. We will place him on heparin subcutaneous. TIME SPENT: Time spent on this admission was 60 minutes; greater than half that time was spent at the bedside reviewing events leading thus far to his hospitalization, performing physical exam, and reviewing my plan of care. I have discussed this with my attending, Dr. Iliana Wright; she is in agreement with my plan. SAMIA RODRIGUEZ, LUPE [id number]/[facility] #: [id number] MTDStorm
[2019-01-11] MEDS: Morphine TAB Extended Release (*) 15 MG TAB.ER PO SCH (22:35)
[2019-01-11] MEDS: Gabapentin CAP(*) 300 MG PO SCH (22:36)
[2019-01-11] MEDS: Amantadine CAP* 100 MG PO SCH (22:37)
[2019-01-11] MEDS: Oseltamivir CAP* 75 MG CAP PO SCH (22:37)
[2019-01-11] MEDS: Divalproex DR TAB(*) 250 MG PO SCH (22:37)
[2019-01-11] MEDS: Heparin VIAL(*) 5000 UNITS/ML VIAL (FIVE THOUSAND) SUBCUT SCH (22:38)
[2019-01-12] MEDS: Acetaminophen TAB* 325 MG PO PRN (02:51)
[2019-01-12] MEDS: Heparin VIAL(*) 5000 UNITS/ML VIAL (FIVE THOUSAND) SUBCUT SCH ×3 (06:21→21:33)
[2019-01-12 06:52] LABS: ABS Lymphocytes 1.7 10^3/ul (1.0-4.8); ABS Monocytes 0.6 10^3/ul (0-0.8); ABS Neutrophils 9.8 10^3/ul (1.5-7.7); Eosinophil % 0.1 %; Hematocrit 38 % (42-52); Hemoglobin 12.8 g/dL (14.0-18.0); Lymphocyte % 13.9 %; Mean Corpuscular HGB Conc 33 g/dL (31-36); Mean Corpuscular Hemoglobin 27 pg (27-31); Mean Corpuscular Volume 82 fL (80-94); Mean Platelet Volume 8.1 fL (7.4-10.4); Nucleated Red Blood Cells % 0.1; Platelet Count 170 10^3/uL (150-450); Red Blood Count 4.69 10^6 /uL (4.18-5.48); Red Cell Distribution Width 16 % (10-15)
[2019-01-12 07:02] LABS: BUN/Creatinine Ratio 16.5 (8-20); Calcium 8.6 mg/dL (8.6-10.3); EGFR African American 86.1 (>60); EGFR Non-African American 71.2 (>60); Potassium 3.7 mmol/L (3.5-5.0)
--- NOTE | 2019-01-12 07:17 | PN ---
Subjective Date of Service: 01/12/19 Interval History: HD 2 on 01/12/2019 73 y/o M with PMH of PArkinson's, T2DM, HTN, Depression, Gout, GOut presented with fever, SOB and fatigue. Found to have Sepsis 2/2 Influenza(tachy, fever, leucocytosis). ON oseltamivir No acute overnight events Vitals stable; although hypertensive Has subjective fever and doesnot feel well. HE is alert and oriented but he doesnt know why he was brought here; his son brought him here Objective Active Medications: Acetaminophen (Tylenol Tab*) 650 mg PO Q4H PRN PRN Reason: MILD PAIN or TEMP > 100.4 Last Admin: 01/12/19 02:51 Dose: 650 mg Allopurinol (Zyloprim Tab*) 200 mg PO QAM [facility] Amantadine HCl (Symmetrel Cap*) 100 mg PO BID [facility] Last Admin: 01/11/19 22:37 Dose: 100 mg Aspirin (Aspirin Ec Tab*) 81 mg PO DAILY [facility] Atorvastatin Calcium (Lipitor*) 10 mg PO DAILY [facility]; Protocol Dextrose (Dextrose 50% Vial 50 Ml*) 25 ml IV PUSH .FOR FS < 60 - SS PRN PRN Reason: FS < 60 Divalproex Sodium (Depakote Dr Tab(*)) 250 mg PO BID [facility] Last Admin: 01/11/19 22:37 Dose: 250 mg Duloxetine HCl (Cymbalta Cap*) 30 mg PO QAM [facility] Folic Acid (Folvite Tab*) 1 mg PO QAM [facility] Gabapentin (Neurontin Cap(*)) 600 mg PO QID [facility] Last Admin: 01/11/19 22:36 Dose: 600 mg Heparin Sodium (Porcine) (Heparin Vial(*)) 5,000 units SUBCUT Q8HR [facility] Last Admin: 01/12/19 06:21 Dose: 5,000 units Hydralazine HCl (Apresoline Iv*) 5 mg IV SLOW PU Q6H PRN PRN Reason: Systolic Bp Less Than:180 Last Admin: 01/11/19 19:40 Dose: 5 mg Sodium Chloride (Ns 0.9% 1000 Ml) 1,000 mls @ 50 mls/hr IV PER RATE [facility] Last Admin: 01/11/19 22:50 Dose: 50 mls/hr Insulin Human Lispro (Humalog*) 0 units SUBCUT [facility]; Protocol Labetalol HCl (Trandate Tab*) 100 mg PO BID [facility] Last Admin: 01/11/19 18:19 Dose: 100 mg Lactulose (Lactulose*) 15 ml PO BID PRN PRN Reason: Dietary Substitute Morphine Sulfate (Ms Contin(*)) 15 mg PO TID [facility] Last Admin: 01/11/19 22:35 Dose: 15 mg Multivitamins/Minerals (Theragran/Minerals Tab*) 1 tab PO DAILY [facility] Ondansetron HCl (Zofran Inj*) 4 mg IV Q8H PRN PRN Reason: NAUSEA Last Admin: 01/11/19 22:03 Dose: 4 mg Oseltamivir Phosphate (Tamiflu Cap*) 75 mg PO BID [facility] Stop: 01/16/19 09:01 Last Admin: 01/11/19 22:37 Dose: 75 mg Oxycodone/Acetaminophen (Percocet 5/325 Tab*) 1 tab PO Q8H PRN PRN Reason: PAIN - SEVERE Pantoprazole Sodium (Protonix Tab*) 40 mg PO DAILY [facility] Rivastigmine (Exelon Patch(Nf)) 1 patch TRANSDERM QAM [facility] Vital Signs - 8 hr 01/11/19 01/12/19 01/12/19 23:15 01:20 01:21 Temperature 97.7 F Pulse Rate 76 Respiratory 18 20 20 Rate Blood Pressure 182/72 (mmHg) O2 Sat by Pulse 98 Oximetry 01/12/19 04:05 Temperature 97.6 F Pulse Rate 84 Respiratory 18 Rate Blood Pressure 167/80 (mmHg) O2 Sat by Pulse 98 Oximetry Oxygen Devices in Use Now: None Exam: Patient is HEENT: Normocephalic and atraumatic Lungs: Clear with no added sounds Heart: S1/S2 heard with no murmur Abdomen: Soft, nondistended and nontender Extremities: No swelling Neuro: Alert, oriented and conscious Result Diagrams: 01/12/19 05:27 01/12/19 05:27 Assess/Plan/Problems-Billing Assessment: 73 y/o M with h/o Parkinson, HTN, T2DM, Chronic pain, Depression, Gout, GERD presented with fever, SOB and fatigue. Found to have sepsis with influenza. On oseltamivir - Patient Problems (1) Sepsis Current Visit: Yes Status: Acute Comment: Resolved Secondary to Influenza Still leucocytosis Urine negative for legionella and S. Pneumo CXR showed minimal linear atelectasis vs pleural parenchymal scarring on left lung base On Oseltamivir(day 2) (2) Chronic pain Current Visit: Yes Status: Acute Code(s): G89.29 - OTHER CHRONIC PAIN SNOMED Code(s): 28031578 Comment: Chronic pain managed with morphine and gabapentin (3) Depression Current Visit: No Status: Acute Code(s): F32.9 - MAJOR DEPRESSIVE DISORDER, SINGLE EPISODE, UNSPECIFIED SNOMED Code(s): 20770915 Comment: - On duloxetine (4) Hypertension Current Visit: No Status: Acute Code(s): I10 - ESSENTIAL (PRIMARY) HYPERTENSION SNOMED Code(s): 49294822 Comment: - On higher side -Normal saline stopped -started home lisinopril and labetalol (5) Diabetes mellitus Current Visit: Yes Status: Acute Code(s): E11.9 - TYPE 2 DIABETES MELLITUS WITHOUT COMPLICATIONS SNOMED Code(s): 73560539 Comment: On insulin lispro ss Holding his home metformin; given his recent lactic acidosis (6) Parkinson disease Current Visit: No Status: Acute Code(s): G20 - PARKINSON'S DISEASE SNOMED Code(s): 41828032 Comment: - Continue amantidine and rivastigmine (7) Gout Current Visit: Yes Status: Acute Code(s): M10.9 - GOUT, UNSPECIFIED SNOMED Code(s): 62058200 Comment: On allopurinol (8) DVT prophylaxis Current Visit: No Status: Acute Code(s): Z29.9 - ENCOUNTER FOR PROPHYLACTIC MEASURES, UNSPECIFIED SNOMED Code(s): 559853346 Comment: - ON heparin (9) Full code status Current Visit: No Status: Acute Code(s): Z78.9 - OTHER SPECIFIED HEALTH STATUS SNOMED Code(s): 634872892 Status and Disposition: Inpatient Pt will evaluate and waiting for their recommendation on safe disposition Attending: Sara Tavarez Attestation Documenting Resident: Kim Quiñones Supervising Physician: Sara Tavarez Attending/Supervising Physician Comment: 73M PMH chronic pain on custodial opiates, Parkinsons, Gout, HTN, NIDDM who presented with fevers, chills, malaise, found to meet sepsis criteria and influenza B+ #Influnza B: On Osteltamivir Day 2/5 on 01/12, stopped abx #Sepsis: Resolved, may resume home antiHTN, never with shock #Parkinsons: Home meds, holding home klonopin #HTN: Resume home lisinopril, Labetalol #Pain: On [employer] opiates #Gout: Allopurtionol #NIDDM: SSI and POC Glu, holding home metformin for now #DVT: SQH #Code: Full Dispo: PT to evaluate, pt was living at home with , son brought him, his is currently at [facility], depending on fxnl status may need STR Attestation: This service has been performed in part by a resident under the direction of a teaching physician.I, Sara Tavarez, performed the service, or was physically present during the critical, or jean portions of the service, furnished by the resident. I participated in the management of the patient.
[2019-01-12] MEDS: RIVASTIGMINE 9.5 MG TRANSDERM SCH (08:42)
[2019-01-12] MEDS: Gabapentin CAP(*) 300 MG PO SCH ×4 (08:43→21:27)
[2019-01-12] MEDS: Divalproex DR TAB(*) 250 MG PO SCH ×2 (08:43→21:29)
[2019-01-12] MEDS: Folic Acid TAB* 1 MG PO SCH (08:44)
[2019-01-12] MEDS: Multivitamins/Minerals TAB PO SCH (08:44)
[2019-01-12] MEDS: DULoxetine DR CAP* 30 MG CAP.DR PO SCH (08:44)
[2019-01-12] MEDS: Oseltamivir CAP* 75 MG CAP PO SCH ×2 (08:44→21:29)
[2019-01-12] MEDS: Aspirin EC TAB* 81 MG TAB.EC PO SCH (08:44)
[2019-01-12] MEDS: Pantoprazole TAB * 40 MG TAB PO SCH (08:44)
[2019-01-12] MEDS: Amantadine CAP* 100 MG PO SCH ×2 (08:44→21:30)
[2019-01-12] MEDS: Atorvastatin* 10 MG TAB PO SCH (08:45)
[2019-01-12] MEDS: Allopurinol TAB* 100 MG PO SCH (08:45)
[2019-01-12] MEDS: Morphine TAB Extended Release (*) 15 MG TAB.ER PO SCH ×3 (08:45→21:42)
[2019-01-12] MEDS: Labetalol TAB* 100 MG PO SCH ×2 (08:45→21:31)
[2019-01-12] MEDS: Insulin LISPRO* 1 UNITS UNIT SUBCUT SCH ×3 (09:01→18:41)
[2019-01-12] MEDS ORDERED: Lisinopril TAB* 10 MG PO SCH (13:00)
[2019-01-13 06:02] LABS: ABS Eosinophils 0.3 10^3/ul (0-0.6); ABS Lymphocytes 2.9 10^3/ul (1.0-4.8); ABS Monocytes 0.7 10^3/ul (0-0.8); ABS Neutrophils 3.6 10^3/ul (1.5-7.7); Eosinophil % 3.4 %; Hematocrit 36 % (42-52); Lymphocyte % 38.9 %; Mean Corpuscular HGB Conc 33 g/dL (31-36); Mean Corpuscular Hemoglobin 27 pg (27-31); Mean Corpuscular Volume 83 fL (80-94); Mean Platelet Volume 8.1 fL (7.4-10.4); Platelet Count 149 10^3/uL (150-450); Red Blood Count 4.38 10^6 /uL (4.18-5.48); Red Cell Distribution Width 16 % (10-15); White Blood Count 7.5 10^3/uL (3.5-10.8)
[2019-01-13 06:30] LABS: BUN/Creatinine Ratio 17.2 (8-20); Calcium 8.7 mg/dL (8.6-10.3); EGFR African American 70.9 (>60); EGFR Non-African American 58.6 (>60); Magnesium 1.7 mg/dL (1.9-2.7); Potassium 3.5 mmol/L (3.5-5.0)
[2019-01-13] MEDS: Heparin VIAL(*) 5000 UNITS/ML VIAL (FIVE THOUSAND) SUBCUT SCH ×2 (06:57→16:55)
[2019-01-13] MEDS ORDERED: Magnesium Sulfate 2 GM IV* 2 GM/50 ML BAG IVPB ONE (07:03)
[2019-01-13] MEDS ORDERED: Potassium Chlor TAB* 20 MEQ TAB.ER PO ONE (07:04)
--- NOTE | 2019-01-13 07:07 | PN ---
Subjective Date of Service: 01/13/19 Interval History: HD 3 on 01/13/2019 73 y/o M with PMH of PArkinson's, T2DM, HTN, Depression, Gout, GOut presented with fever, SOB and fatigue. Found to have Sepsis 2/2 Influenza(tachy, fever, leucocytosis). ON oseltamivir( day3/5) No acute overnight events Vitals stable; Labs: Low mag; WBC normal NO complaint at present. NO fever, ough or sob. Feels like going home. Objective Active Medications: Acetaminophen (Tylenol Tab*) 650 mg PO Q4H PRN PRN Reason: MILD PAIN or TEMP > 100.4 Last Admin: 01/12/19 02:51 Dose: 650 mg Allopurinol (Zyloprim Tab*) 200 mg PO QAM [facility] Last Admin: 01/12/19 08:45 Dose: 200 mg Amantadine HCl (Symmetrel Cap*) 100 mg PO BID [facility] Last Admin: 01/12/19 21:30 Dose: 100 mg Aspirin (Aspirin Ec Tab*) 81 mg PO DAILY [facility] Last Admin: 01/12/19 08:44 Dose: 81 mg Atorvastatin Calcium (Lipitor*) 10 mg PO DAILY [facility]; Protocol Last Admin: 01/12/19 08:45 Dose: 10 mg Dextrose (Dextrose 50% Vial 50 Ml*) 25 ml IV PUSH .FOR FS < 60 - SS PRN PRN Reason: FS < 60 Divalproex Sodium (Depakote Dr Tab(*)) 250 mg PO BID [facility] Last Admin: 01/12/19 21:29 Dose: 250 mg Duloxetine HCl (Cymbalta Cap*) 30 mg PO QAM [facility] Last Admin: 01/12/19 08:44 Dose: 30 mg Folic Acid (Folvite Tab*) 1 mg PO QAM [facility] Last Admin: 01/12/19 08:44 Dose: 1 mg Gabapentin (Neurontin Cap(*)) 600 mg PO QID [facility] Last Admin: 01/12/19 21:27 Dose: 600 mg Heparin Sodium (Porcine) (Heparin Vial(*)) 5,000 units SUBCUT Q8HR [facility] Last Admin: 01/13/19 06:57 Dose: 5,000 units Hydralazine HCl (Apresoline Iv*) 5 mg IV SLOW PU Q6H PRN PRN Reason: Systolic Bp Less Than:180 Last Admin: 01/11/19 19:40 Dose: 5 mg Magnesium Sulfate (Magnesium Sulfate 2 Gm Iv*) 2 gm in 50 mls @ 50 mls/hr IVPB ONCE ONE Stop: 01/13/19 08:02 Insulin Human Lispro (Humalog*) 0 units SUBCUT [facility]; Protocol Last Admin: 01/12/19 18:41 Dose: 1 units Labetalol HCl (Trandate Tab*) 100 mg PO BID [facility] Last Admin: 01/12/19 21:31 Dose: 100 mg Lactulose (Lactulose*) 15 ml PO BID PRN PRN Reason: Dietary Substitute Lisinopril (Prinivil Tab*) 10 mg PO DAILY [facility] Morphine Sulfate (Ms Contin(*)) 15 mg PO TID [facility] Last Admin: 01/12/19 21:42 Dose: 15 mg Multivitamins/Minerals (Theragran/Minerals Tab*) 1 tab PO DAILY [facility] Last Admin: 01/12/19 08:44 Dose: 1 tab Ondansetron HCl (Zofran Inj*) 4 mg IV Q8H PRN PRN Reason: NAUSEA Last Admin: 01/11/19 22:03 Dose: 4 mg Oseltamivir Phosphate (Tamiflu Cap*) 75 mg PO BID [facility] Stop: 01/16/19 09:01 Last Admin: 01/12/19 21:29 Dose: 75 mg Oxycodone/Acetaminophen (Percocet 5/325 Tab*) 1 tab PO Q8H PRN PRN Reason: PAIN - SEVERE Pantoprazole Sodium (Protonix Tab*) 40 mg PO DAILY [facility] Last Admin: 01/12/19 08:44 Dose: 40 mg Potassium Chloride (Klor Con Er Tab*) 40 meq PO ONCE ONE Stop: 01/13/19 07:05 Rivastigmine (Exelon Patch(Nf)) 1 patch TRANSDERM QAM [facility] Last Admin: 01/12/19 08:42 Dose: 1 patch Vital Signs - 8 hr 01/12/19 01/12/19 23:32 23:45 Respiratory 20 18 Rate Oxygen Devices in Use Now: None Exam: Patient is lying on a bed with no acute distress HEENT: Normocephalic and atraumatic Lungs: Clear with no added sounds Heart: S1/S2 heard with no murmur Abdomen: Soft, nondistended and nontender Extremities: No swelling Neuro: Alert, oriented and conscious Result Diagrams: 01/13/19 05:11 01/13/19 05:11 Assess/Plan/Problems-Billing Assessment: 73 y/o M with h/o Parkinson, HTN, T2DM, Chronic pain, Depression, Gout, GERD presented with fever, SOB and fatigue. Found to have sepsis with influenza. On oseltamivir(day 3/5) - Patient Problems (1) Influenza Current Visit: Yes Status: Acute Code(s): J11.1 - FLU DUE TO UNIDENTIFIED INFLUENZA VIRUS W OTH RESP MANIFEST SNOMED Code(s): 2076204 Comment: has influenza B Improving ON oseltamivir day3/5 (2) Sepsis Current Visit: Yes Status: Acute Comment: Resolved Secondary to Influenza WBC normal Urine negative for legionella and S. Pneumo CXR showed minimal linear atelectasis vs pleural parenchymal scarring on left lung base On Oseltamivir(day 3) (3) Chronic pain Current Visit: Yes Status: Acute Code(s): G89.29 - OTHER CHRONIC PAIN SNOMED Code(s): 77134193 Comment: Chronic pain managed with morphine and gabapentin (4) Depression Current Visit: No Status: Acute Code(s): F32.9 - MAJOR DEPRESSIVE DISORDER, SINGLE EPISODE, UNSPECIFIED SNOMED Code(s): 25988178 Comment: - On duloxetine (5) Hypertension Current Visit: No Status: Acute Code(s): I10 - ESSENTIAL (PRIMARY) HYPERTENSION SNOMED Code(s): 71050602 Comment: - On higher side -Normal saline stopped -started home lisinopril and labetalol (6) Diabetes mellitus Current Visit: Yes Status: Acute Code(s): E11.9 - TYPE 2 DIABETES MELLITUS WITHOUT COMPLICATIONS SNOMED Code(s): 05757570 Comment: On insulin lispro ss Holding his home metformin; given his recent lactic acidosis (7) Parkinson disease Current Visit: No Status: Acute Code(s): G20 - PARKINSON'S DISEASE SNOMED Code(s): 48324745 Comment: - Continue amantidine and rivastigmine (8) Gout Current Visit: Yes Status: Acute Code(s): M10.9 - GOUT, UNSPECIFIED SNOMED Code(s): 67058649 Comment: On allopurinol (9) DVT prophylaxis Current Visit: No Status: Acute Code(s): Z29.9 - ENCOUNTER FOR PROPHYLACTIC MEASURES, UNSPECIFIED SNOMED Code(s): 791374096 Comment: - ON heparin (10) Full code status Current Visit: No Status: Acute Code(s): Z78.9 - OTHER SPECIFIED HEALTH STATUS SNOMED Code(s): 077460563 Status and Disposition: Inpatient D/C today Pt cleared him; going home Attending: Sara Tavarez Attestation Documenting Resident: Kim Quiñones Supervising Physician: Sara Tavarez Attending/Supervising Physician Comment: Agree with resident note. Attending addendum 73M parkinsons with MCI, HTN, HLD, NIDDM who presented with sepsis 2/2 to flu, improving rapidly, stable for d/c. Cleared by PT and case mgmt Attestation: This service has been performed in part by a resident under the direction of a teaching physician.I, Sara Tavarez, performed the service, or was physically present during the critical, or jean portions of the service, furnished by the resident. I participated in the management of the patient.
[2019-01-13] MEDS ORDERED: Lisinopril TAB* 10 MG PO SCH (09:00)
[2019-01-13] MEDS: Divalproex DR TAB(*) 250 MG PO SCH (10:01)
[2019-01-13] MEDS: Pantoprazole TAB * 40 MG TAB PO SCH (10:01)
[2019-01-13] MEDS: Gabapentin CAP(*) 300 MG PO SCH ×2 (10:01→13:31)
[2019-01-13] MEDS: Morphine TAB Extended Release (*) 15 MG TAB.ER PO SCH ×2 (10:02→13:32)
[2019-01-13] MEDS: Atorvastatin* 10 MG TAB PO SCH (10:02)
[2019-01-13] MEDS: Multivitamins/Minerals TAB PO SCH (10:02)
[2019-01-13] MEDS: Folic Acid TAB* 1 MG PO SCH (10:02)
[2019-01-13] MEDS: DULoxetine DR CAP* 30 MG CAP.DR PO SCH (10:02)
[2019-01-13] MEDS: Aspirin EC TAB* 81 MG TAB.EC PO SCH (10:02)
[2019-01-13] MEDS: Labetalol TAB* 100 MG PO SCH (10:02)
[2019-01-13] MEDS: Oseltamivir CAP* 75 MG CAP PO SCH (10:02)
[2019-01-13] MEDS: RIVASTIGMINE 9.5 MG TRANSDERM SCH (10:03)
[2019-01-13] MEDS: Amantadine CAP* 100 MG PO SCH (10:03)
[2019-01-13] MEDS: Allopurinol TAB* 100 MG PO SCH (10:03)
[2019-01-13] MEDS: Insulin LISPRO* 1 UNITS UNIT SUBCUT SCH ×2 (10:14→13:32)
[2019-01-13 11:39] VITALS: BP 141/59
--- NOTE | 2019-01-13 15:07 | DS ---
CC: Dr. Gema Cabral DISCHARGE SUMMARY: DATE OF ADMISSION: 01/11/19 DATE OF DISCHARGE: 01/13/19 PRIMARY CARE PROVIDER: Dr. Gema Cabral DISPOSITION AT THE TIME OF DISCHARGE: Stable, to be discharged to home with home VNS, Meals on Wheels, and family support. PRIMARY DIAGNOSES: 1. Influenza B virus. 2. Sepsis since resolved. SECONDARY DIAGNOSES: 1. History of Parkinson disease. 2. Uwu-dlbsims-ekfwvapcy diabetes. 3. Hypertension. 4. Depression. 5. Gout. 6. Chronic pain, on long-term opiate pain medication. 7. History of stable carotid disease, left greater than right. 8. Diabetic neuropathy. 9. Charcot left foot. MEDICATION AT THE TIME OF DISCHARGE: 1. Metformin 1000 mg p.o. b.i.d. 2. Lisinopril 10 mg p.o. daily. 3. Exelon (rivastigmine patch) 9.5 mg daily. 4. Clonazepam 0.5 mg 1 tablet q.h.s. p.r.n. for sleep. 5. Amantadine 100 mg 1 tablet b.i.d. 6. Oxycodone/acetaminophen 10/325 one tablet 4 times a day as needed for pain consistent with his home medication. 7. Allopurinol 200 mg p.o. daily. 8. Vitamin D3 2000 units p.o. daily. 9. Calcium plus D3 250 mg 1 tab p.o. b.i.d. 10. Depakote 250 mg 1 tablet b.i.d. 11. Duloxetine 30 mg daily. 12. Nasacort 55 mcg 2 sprays each nostril at bedtime p.r.n. 13. Gabapentin 600 mg 1 tab p.o. q.i.d. 14. Meloxicam 7.5 mg p.o. daily. 15. Omeprazole 20 mg daily. 16. Multivitamin 1 tab p.o. daily. 17. Acetaminophen 500 mg 2 tabs by mouth 3 times a day as needed for pain. 18. Pravastatin 40 mg p.o. daily. 19. Labetalol 100 mg p.o. b.i.d. 20. Morphine Extended Release 15 mg 1 tab t.i.d. p.r.n. for severe pain. 21. Aspirin 81 mg p.o. daily. 22. Lactulose 10 g or 15 mL b.i.d. 23. Oseltamivir 75 mg p.o. b.i.d. for an additional 3 days status post discharge. MEDICATION CHANGES ON THIS HOSPITALIZATION: Include the addition of oseltamivir 75 mg p.o. b.i.d. for an additional 3 days status post discharge. HISTORY OF PRESENT ILLNESS AND HOSPITAL COURSE: A 73-year-old male who is domiciled at home with home VNS, Meals on Wheels, who presented to the emergency room on 01/11/19 brought by his son after the patient had complained of fatigue and some shortness of breath. The patient reports that he has an aide that comes and visits once a week from [place] and he mentioned this to them and the aide called EMS. The patient reports that he was feeling fine until about 1 day prior to discharge where he started to feel a little bit fatigued like he was coming down with a cold. He also reports that he has been visiting his who is in rehab at [place]. In the emergency room, the patient was febrile to 101.4, he was tachycardic to 118 and tachypneic at high 20s 1. Influenza B. The patient was started on oseltamivir. His symptoms improved significantly over the next 48 hours. His vital signs normalized. He received a fluid bolus initially and his antihypertensives were held, those were resumed. He had no further shortness of breath, no further fevers, and was tolerating diet and ambulating at his baseline. 2. Severe sepsis, resolved within the first 6 hours of hospitalization after receiving fluid bolus and oseltamivir. He had no further signs or symptoms. 3. Parkinson disease. The patient's home medications given. 4. Hypertension. The patient did have some hypertension while in the hospital. This is secondary to holding his antihypertensives in the setting of being admitted with severe sepsis which quickly resolved. They were restarted by hospital day 2, and on hospital day 3, his blood pressures have normalized. 5. Depression. His home medications were continued. 6. Chronic pain, on long-term opiate pain medication. His home medications were continued. Of note, these medications are high risk, and he is also prescribed clonazepam, consider titrating up one or the other as an outpatient given his mental status with a history of Parkinson's and mild cognitive impairment at baseline. 7. Gout. His home medication was continued. 8. Gastroesophageal reflux disease. His home omeprazole was continued. 9. Hyperlipidemia. His home Pravachol was continued. He was kept on heparin subcutaneous for DVT prophylaxis, and he was noted to have a full code. Case management was involved to communicate with his family who feel comfortable with him being discharged to home. He was seen by PT who cleared him to be discharged to home, and on day of discharge, he is ambulating, tolerating diet and voiding freely. LABS AND STUDIES DONE DURING THIS HOSPITALIZATION: Include a chest x-ray on 11/22, which shows no acute intrapulmonary process, and EKG shows sinus tachycardia with no signs of acute ischemia. CONSULTANTS DURING HIS HOSPITALIZATION: None. Physical exam was performed on the day of discharge, please see in the chart. ITEMS TO FOLLOW UP ON STATUS POST DISCHARGE: 1. Influenza B. This patient was positive. He should complete 5 days of treatment of oseltamivir. The rest of his home medications can be kept the same. 2. Chronic pain, on long-term opiate pain medication, also with p.r.n. benzodiazepines. The patient does have high dose of narcotic pain medications. He showed no complications or oversedation during this hospitalization, although he is a high risk given his Parkinson disease and mild cognitive impairment at baseline, consider down titration as needed. TIME SPENT: Thirty five minutes was spent on planning of this discharge with over half of that spent directly at the bedside of the patient providing direct patient care and direct care and coordination. Plan of care was discussed with the patient who understands to return to the hospital if he is feeling feverish , short of breath, chest pain, has any symptoms. This discharge summary meant to be a distillation of a number of hospital events that happened over a total of 3-day hospitalization. If there are any questions about the care of this patient specifically, please do not hesitate to reach out and contact the hospitalist team directly. [id number]/[facility] #: [id number] JAYCOB
== END 2019-01-13 14:00 | disposition home health service (06) | DRG 872 ==
LOC: ED 13:02 → MED 17:47
PROVIDERS: ADMIT Internal Medicine; ATTEND Internal Medicine
DX: A41.89 Other specified sepsis (principal); J10.1 Influenza due to other identified influenza virus with other respiratory manifestations; E78.00 Pure hypercholesterolemia, unspecified; I10 Essential (primary) hypertension; J30.2 Other seasonal allergic rhinitis; K21.9 Gastro-esophageal reflux disease without esophagitis; M19.90 Unspecified osteoarthritis, unspecified site; M10.9 Gout, unspecified; H91.93 Unspecified hearing loss, bilateral; G20 Parkinson's disease; E11.42 Type 2 diabetes mellitus with diabetic polyneuropathy; F32.9 Major depressive disorder, single episode, unspecified; R65.20 Severe sepsis without septic shock; E78.5 Hyperlipidemia, unspecified; E11.610 Type 2 diabetes mellitus with diabetic neuropathic arthropathy; G89.29 Other chronic pain; Z96.1 Presence of intraocular lens; K58.1 Irritable bowel syndrome with constipation; G60.0 Hereditary motor and sensory neuropathy; Z97.4 Presence of external hearing-aid; Z90.49 Acquired absence of other specified parts of digestive tract; Z87.442 Personal history of urinary calculi; Z98.42 Cataract extraction status, left eye; Z98.41 Cataract extraction status, right eye; Z87.891 Personal history of nicotine dependence; Z79.84 Long term (current) use of oral hypoglycemic drugs; Z79.82 Long term (current) use of aspirin; Z79.51 Long term (current) use of inhaled steroids
CPT/HCPCS: 36415; 71045; 80048; 80053; 81003; 82550; 83605; 83735; 83880; 84484; 85025; 85610; 85652; 85730; 86140; 87040; 87899; 93005; 96365; 99284; A9270-GY; G8978-GP-CH; G8979-GP-CH; G8980-GP-CH; J0360; J0456; J0696; J1644; J2405; J3475

== ENCOUNTER 2019-03-21 13:53 | Observation (INO) | payer MEDICARE ==
--- NOTE | 2019-03-21 15:02 | ED ---
GI/ HPI - HPI Summary HPI Summary: Patient complains of incontinence, exertional SOB, confusion and chills starting today. History of recurrent UTIs. Denies fever, cough, sore throat, CP, N/V/D, abdominal pain, pain with urination, change in BM. Medical history is NSTEMI, HTN, Parkinson's, DM, gout. - History of Current Complaint Chief Complaint: EDUrogenitalProblems Time Seen by Provider: 03/21/19 14:58 Stated Complaint: UTI SYMPTOMS/AMS PER PT Hx Obtained From: Patient, Family/Non Destructive Evaluation Manager Onset/Duration: Started Hours Ago Timing: Intermittent Current Severity: None Pain Intensity: 0 Location of Pain: None Associated Signs and Symptoms: Positive: Chills - Additional Pertinent History Primary Care Physician: GIULIANA - Allergy/Home Medications Allergies/Adverse Reactions: Allergies Allergy/AdvReac Type Severity Reaction Status Date / Time No Known Allergies Allergy Verified 03/21/19 14:02 Home Medications: Home Medications Calcium Carb/Vitamin D3/Vit K1 [Calcium + D] 1 chw PO BID 03/21/19 [History Confirmed 03/21/19] Morphine TAB Extended Rel(*) [Ms Contin(*)] 15 mg PO TID 03/21/19 [History Confirmed 03/21/19] Triamcinolone NASAL SPRAY* [Nasacort AQ Nasal [place]*] 2 spray BOTH NARES QAM [History Confirmed 03/21/19] metFORMIN* [Glucophage 1000 MG TAB *] 1,000 mg PO BID 03/21/19 [History Confirmed 03/21/19] PMH/Surg Hx/FS Hx/Imm Hx Endocrine/Hematology History: Reports: Hx Diabetes, Hx Anemia Cardiovascular History: Reports: Hx Hypercholesterolemia, Hx Hypertension, Other Cardiovascular Problems/Disorders - left and right carotid blockage Denies: Hx Pacemaker/ICD Respiratory History: Reports: Hx Seasonal Allergies Denies: Hx Asthma GI History: Reports: Hx Gastroesophageal Reflux Disease, Hx Irritable Bowel, Other GI Disorders - chronic constipation History: Reports: Hx Kidney Stones - BILATERAL Denies: Hx Dialysis, Hx Renal Disease - KIDNEY STONES Musculoskeletal History: Reports: Hx Arthritis, Hx Back Problems - 2 lumbar laminectomy surgeries, Hx Bursitis - elbow, Hx Gout Sensory History: Reports: Hx Contacts or Glasses - to read, Hx Hearing Aid - both ears Opthamlomology History: Reports: Hx Contacts or Glasses - to read Neurological History: Reports: Hx Nerve Disease - DM neuropathy, Parkinsons- diagnosed 2014, Hx Peripheral Neuropathy - DM, Other Neuro Impairments/ Disorders - Charcot Roberta Tooth, Parkinson's Psychiatric History: Reports: Hx Depression Denies: Hx Panic Disorder - Cancer History Hx Chemotherapy: No - Surgical History Surgery Procedure, Year, and Place: Lumbar Laminectomy x2 20 years ago in [place]. SKIN GRAFTS ([place]). CHOLECYSTECTOMY. LITHOTRIPSY- multiple times. bilat cataract surgery with IOL. green light laser for prostate Hx Anesthesia Reactions: Yes - after 1 surgery had delayed urinary retention Infectious Disease History: No Infectious Disease History: Denies: Traveled Outside the [place] in Last 30 Days - Family History Known Family History: Positive: Cardiac Disease, Hypertension, Diabetes, Other - Parkinson's, pneumonia - Social History Alcohol Use: None Substance Use Type: Reports: None Hx Tobacco Use: Yes Smoking Status (MU): Former Smoker Type: Cigarettes Have You Smoked in the Last Year: No Review of Systems Positive: Chills Eyes: Negative ENT: Negative Cardiovascular: Negative Positive: Shortness Of Breath Gastrointestinal: Negative Positive: incontinence Musculoskeletal: Negative Skin: Negative Neurological: Negative Psychological: Normal All Other Systems Reviewed And Are Negative: Yes Physical Exam Triage Information Reviewed: Yes Vital Signs On Initial Exam: Initial Vitals Temp Pulse Resp BP Pulse Ox 97.6 F 76 18 113/79 100 03/21/19 13:57 03/21/19 13:57 03/21/19 13:57 03/21/19 13:57 03/21/19 13:57 Vital Signs Reviewed: Yes Appearance: Positive: Well-Appearing Skin: Positive: Warm Head/Face: Positive: Normal Head/Face Inspection Eyes: Positive: Normal Neck: Positive: Supple Respiratory/Lung Sounds: Positive: Clear to Auscultation Cardiovascular: Positive: Normal Abdomen Description: Positive: Nontender Musculoskeletal: Positive: Normal Neurological: Positive: Normal Psychiatric: Positive: Normal AVPU Assessment: Alert - Nat Coma Scale Best Eye Response: 4 - Spontaneous Best Motor Response: 6 - Obeys Commands Best Verbal Response: 5 - Oriented Coma Scale Total: 15 Procedures - Sedation Patient Received Moderate/Deep Sedation with Procedure: No Diagnostics - Vital Signs Vital Signs Temp Pulse Resp BP Pulse Ox 03/21/19 13:57 97.6 F 76 18 113/79 100 - Laboratory Result Diagrams: 03/21/19 15:27 03/21/19 15:27 Lab Statement: Any lab studies that have been ordered have been reviewed, and results considered in the medical decision making process. GIGU Course/Dx - Course Course Of Treatment: Patient complains of incontinence, exertional SOB, confusion and chills starting today. History of recurrent UTIs. Denies fever, cough, sore throat, CP, N/V/D, abdominal pain, pain with urination, change in BM. Medical history is NSTEMI, HTN, Parkinson's, DM, gout. Vital signs within normal limits. WBC 19.8. Lactic 4.0. Troponin 0.4. CRP 62. Creatinine 1.36 new patient baseline. Urine negative. Flu negative. Chest x-ray positive for small right lower infiltrate. EKG sinus arrhythmia, heart rate of 66, normal QTC. Admitted to hospitalist for pneumonia and sepsis. - Diagnoses Provider Diagnoses: Pneumonia, Severe sepsis Discharge ED - Sign-Out/Discharge Documenting (check all that apply): Patient Departure - Discharge Plan Condition: Fair Disposition: ADMITTED TO [facility] - Billing Disposition and Condition Condition: FAIR Disposition: Admitted to [facility]
[2019-03-21 15:33] LABS: Urine Appearance Clear; Urine Bilirubin Negative (Negative); Urine Blood Negative (Negative); Urine Color Yellow; Urine Glucose Negative (Negative); Urine Ketones Trace (Negative); Urine Nitrite Negative (Negative); Urine Protein Negative (Negative); Urine Urobilinogen Negative (Negative)
[2019-03-21 15:38] LABS: ABS Basophils 0.1 10^3/ul (0-0.2); ABS Lymphocytes 2.5 10^3/ul (1.0-4.8); ABS Monocytes 1.3 10^3/ul (0-0.8); Hematocrit 38 % (42-52); Hemoglobin 12.7 g/dL (14.0-18.0); Lymphocyte % 12.4 %; Mean Corpuscular HGB Conc 34 g/dL (31-36); Mean Corpuscular Hemoglobin 28 pg (27-31); Mean Corpuscular Volume 83 fL (80-94); Nucleated Red Blood Cells % 0.1; Platelet Count 166 10^3/uL (150-450); Red Blood Count 4.58 10^6 /uL (4.18-5.48); Red Cell Distribution Width 16 % (10-15); White Blood Count 19.8 10^3/uL (3.5-10.8)
[2019-03-21 15:46] LABS: Urine Bacteria Absent (Absent); Urine Red Blood Cell Trace(0-2/hpf) (Absent); Urine Squamous Epithelial Cell Present (Absent); Urine White Blood Cell 1+(6-10/hpf) (Absent)
[2019-03-21 15:49] LABS: Albumin 4.2 g/dL (3.2-5.2); Anion Gap 9 mmol/L (2-11); CO2 Carbon Dioxide 25 mmol/L (22-32); Calcium 9.3 mg/dL (8.6-10.3); Chloride 103 mmol/L (101-111); Potassium 4.7 mmol/L (3.5-5.0); Sodium 137 mmol/L (135-145)
[2019-03-21 15:55] LABS: ALT 19 U/L (7-52); AST 26 U/L (13-39); Albumin/Globulin Ratio 1.7 (1-3); Alkaline Phosphatase 62 U/L (34-104); BUN/Creatinine Ratio 15.4 (8-20); Blood Urea Nitrogen 21 mg/dL (6-24); C Reactive Protein 62.96 mg/L (<8.01); EGFR African American 62.5 (>60); EGFR Non-African American 51.7 (>60); Globulin 2.5 g/dL (2-4); Glucose 132 mg/dL (70-100); Total Protein 6.7 g/dL (6.4-8.9)
[2019-03-21] MEDS ORDERED: Cefepime(*) 2 GM in NS 0.9% 50 ML* 50 ML IVPB ONE (17:04)
[2019-03-21] MEDS: NS 0.9% 1000 ML** 2,000 ML IV ONE ×2 (17:18→18:01)
[2019-03-21] MEDS ORDERED: Acetaminophen TAB* 325 MG PO PRN (17:54)
[2019-03-21] MEDS ORDERED: Ondansetron INJ* 2 MG/ML VIAL IV PRN (17:54)
[2019-03-21] MEDS ORDERED: Benzonatate CAP* 100 MG PO PRN (17:57)
[2019-03-21] MEDS ORDERED: oxyCODONE/Acetamin 10/325(NF) TAB PO PRN (17:58)
[2019-03-21] MEDS ORDERED: Lactulose* 15 ML UDC PO PRN (17:58)
[2019-03-21] MEDS ORDERED: Cefepime 2 GM in Dextrose(*) 2 GM/50 ML BAG IV ONE (18:00)
[2019-03-21] MEDS ORDERED: Dextrose 50% VIAL 50 ml IV PUSH PRN (18:00)
[2019-03-21 18:03] LABS: Influenza A Molecular NEGATIVE (Negative); Influenza B Molecular NEGATIVE (Negative)
[2019-03-21 18:06] LABS: Troponin I 0.04 ng/mL (<0.03)
[2019-03-21] MEDS: Lactated Ringers 1000 ML Bag* 1,000 ML IV SCH (19:00)
[2019-03-21] MEDS ORDERED: oxyCODONE/Acetamin 5/325 MG* TAB PO PRN (19:03)
[2019-03-21] MEDS ORDERED: oxyCODONE TAB* 5 MG TAB PO PRN (19:04)
[2019-03-21] MEDS: cefTRIAXone(*) 1 GM in NS 0.9% 50 ML* 50 ML IVPB SCH (19:44)
--- NOTE | 2019-03-21 20:29 | HP ---
CC: Dr. Gema Cabral * ADMISSION HISTORY AND PHYSICAL: DATE OF ADMISSION: 03/21/19 PRIMARY CARE PROVIDER: Dr. Gema Cabral. MY ATTENDING WHILE IN THE HOSPITAL: Dr. Zenobia Batres.* (DICTATED BY CECI LLAMAS) CHIEF COMPLAINT: Shortness of breath, cough, malaise x1 day. HISTORY OF PRESENT ILLNESS: Mr. Chapa is a 73-year-old male with past medical history significant for Parkinson disease; diabetes mellitus type 2, controlled on metformin; high blood pressure, who presented to the emergency department after this morning he was feeling poorly and then developed initially urinary symptoms consisting of urinary frequency and urgency as well as some incontinence, which is not normal for him. The patient does have a history of urinary tract infections, but he states that he had not previously felt like this. The patient also had some what he felt like shortness of breath and cough , which was not productive of sputum and had no hemoptysis. The patient had no recent changes to medications. No recent sick contacts, though he was admitted to this institution in January with influenza type B. At that time, he had a septic picture, but was treated with oseltamivir and feels as if he has returned to his baseline since then. The patient denies any muscle aches, abdominal pain, diarrhea. The patient has no subjective fevers or chills. No nausea or vomiting. The patient does note his urine has been very dark. He does not notice a significant decrease in his oral intake, however. The patient had recent falls. The patient does feel dizzy occasionally upon standing, which he has previously related to his Parkinson disease. The patient states it does not happen every day. It happens approximately every 2 weeks and he has never passed out. The patient states he has lost some weight recently, but not a huge amount. He does; however, feel like he is losing muscle mass related to atrophy from his Parkinson's. In the emergency department, the patient was found to have an elevated white blood cell count of 19.8, an elevated lactic acid of 4.0, an elevated troponin of 0.04 with an elevated CRP of 62.96. The patient had a relatively bland urinalysis, but did contain trace leukocyte esterase and positive white blood cells. Due to concern for sepsis as qualified by severe lactic acidosis, the patient will be admitted to the hospital for IV antibiotics and close monitoring. PAST MEDICAL HISTORY: Parkinson disease, diabetes mellitus type 2, hypertension , depression, gout, carotid artery stenosis, neuropathy, Charcot foot, history of recurrent nephrolithiasis, and irritable bowel syndrome. PAST SURGICAL HISTORY: Lumbar spinal surgery, cholecystectomy, multiple lithotripsies, tonsillectomy, cataract surgery. MEDICATIONS: 1. Allopurinol 200 mg p.o. daily. 2. Amantadine 100 mg p.o. b.i.d. 3. Vitamin D 2000 units p.o. daily. 4. Clonazepam 0.5 mg p.o. at bedtime. 5. Duloxetine 30 mg p.o. daily. 6. Gabapentin 600 mg p.o. 4 times daily. 7. Exelon 9.5 mg patch transdermal daily. 8. Labetalol 100 mg p.o. b.i.d. 9. Folic acid 1 mg p.o. daily. 10. Lactulose 15 mL p.o. b.i.d. as needed. 11. Aspirin 81 mg p.o. daily. 12. Pravastatin 40 mg p.o. daily. 13. Tylenol 500 mg p.o. b.i.d. as needed. 14. Multivitamin 1 tab p.o. daily. 15. Omeprazole 20 mg p.o. daily. 16. Meloxicam 7.5 mg p.o. daily. 17. Divalproex 250 mg p.o. b.i.d. 18. Percocet 10/325 one tab p.o. t.i.d. as needed. 19. Lisinopril 10 mg p.o. daily. 20. Morphine ER 15 mg p.o. t.i.d. 21. Metformin 1000 mg p.o. b.i.d. 22. Triamcinolone 2 sprays both nares daily. 23. Calcium carbonate/vitamin D/vitamin K 1 tab chew b.i.d. ALLERGIES: No known drug allergies. FAMILY HISTORY: The patient's parental history is unknown. He has no siblings. SOCIAL HISTORY: The patient smoked for approximately 35 years 1 pack per day, quit many years ago. The patient does not drink alcohol, but used to previously abuse alcohol. The patient denies ever having illicit drug use. 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 The patient is and has 1 child. His surrogate decision maker will be his , Evelyne Chapa, if he is unable to make decisions for himself. REVIEW OF SYSTEMS: A 10-point review of systems was reviewed and is negative except as above in the HPI. PHYSICAL EXAMINATION GENERAL: The patient is a 73-year-old male who appears stated age and sitting comfortably in the bed, in no acute distress. VITAL SIGNS: Temperature 99.4, pulse rate 70, respiratory rate 16, oxygen saturation 97% on room air, blood pressure 156/68. HEENT: Head: Normocephalic and atraumatic. Sclerae anicteric. No conjunctival injection. Nasal mucosa moist. Oral mucosa dry. No pharyngeal erythema, discharge or exudate. NECK: Supple, nontender. No lymphadenopathy. No carotid bruits auscultated. No JVD. RESPIRATORY: Clear to auscultation bilaterally. No wheezes, rales, or rhonchi. Good air exchange bilaterally. CARDIAC: Regular rate and rhythm. No clicks, murmurs, gallops, or rubs. Pulses are 2+ in the bilateral dorsalis pedis, posterior tibialis, and radial areas. ABDOMEN: Soft, nontender, nondistended. Bowel sounds present and normoactive in all 4 quadrants. No hepatosplenomegaly. No abdominal bruits auscultated. No hepatojugular reflux. GENITOURINARY: No suprapubic or CVA tenderness. NEURO: Cranial nerves II through XII intact. Left hand pill rolling tremor. Mask- like facies. No other focal deficits. Alert and oriented x3. PSYCHIATRIC: Pleasant and cooperative. SKIN: Clean, dry, and intact. No rash. DIAGNOSTIC STUDIES/LAB DATA: White blood cell count 19.8, hemoglobin 12.7, platelet count 166,000. Sodium 137, potassium 4.7, chloride 103, carbon dioxide 25, anion gap 9, BUN 21, creatinine 1.36, glucose 132, lactic acid 4.0, calcium 9.3. Bilirubin 0.6, AST 26, ALT 19, alkaline phosphatase 62. Troponin I 0.04, CRP 62.96. Protein 6.7, albumin 4.2, globulin 2.5. Urine: Yellow, clear, trace ketones, trace leukocyte esterase, 1+ white blood cells, trace red blood cells, squamous epithelial cells present. Influenza A and B negative. Studies: Chest x-ray read as low lung volumes, right small basilar infiltrate. Electrocardiogram shows normal sinus rhythm. No ST segment elevation or depression. No hypertrophy or enlargement. Rate of 66, QTc of 471. Possible PACs versus sinus arrhythmia. ASSESSMENT AND PLAN: Impression: Mr. Chapa is a 73-year-old male with past medical history significant for Parkinson disease, diabetes mellitus type 2, hypertension and recurrent nephrolithiasis, who presents to the emergency department with fatigue, cough, shortness of breath and urinary incontinence, frequency and urgency, who was found to have a severely elevated lactic acid and elevated white blood cell count and concern for an infection either in his bladder or his lungs. He will be admitted to the hospital for IV antibiotics and close hemodynamic monitoring. 1. Sepsis. Likely source either urine or pneumonia. The patient has developed today symptoms both of pneumonia and of urinary tract infection. He does have a history of urinary tract infections, but did recently have the flu opening up the possibility of a bacterial superinfection on this, though this was 2 months ago. The patient was given cefepime in the emergency department. The patient will be continued on ceftriaxone and doxycycline. This will cover most urinary pathogens as well as community-acquired pneumonia, and the doxycycline will cover possible methicillin-resistant Staphylococcus aureus superinfection on his influenza B infection. The patient has been given 2 L bolus of fluid. The patient will be continued on lactated Ringer's at 150 mL an hour. The patient will have his lactic acid repeated at this time and trended until it normalizes. The patient has no blood in his urine or other pain or signs of this being related to a urinary stone, though if symptoms consistent with this develop, imaging of the urinary tract may be indicated. 2. Lactic acidosis. The patient has a markedly elevated lactic acid. The patient appears dry and is on metformin. This is the likely cause of the patient's lactic acid being at 4. The patient's metformin will be held and this will be monitored closely. The patient has no hemodynamic compromise or signs of hypoperfusion consistent with this level of lactic acidosis; however, a strong index of suspicion for starting vasopressive agents or other agents to increase blood pressure will be exercised. 3. History of Parkinson disease. Continue the patient's amantadine. The patient is not markedly symptomatic from this. Continue rivastigmine as well. 4. Diabetes mellitus type 2. Hold the patient's metformin as above. Insulin sliding scale and fingersticks a.c. and h.s. will be employed. 5. Hypertension. The patient is on labetalol. This dose will be significantly decreased from 100 b.i.d. to 25 b.i.d. in the setting of possible severe sepsis. The patient's lisinopril will be held. His blood pressure will be monitored closely and agents will be reintroduced as tolerated. The patient will be treated with fluids as above. No signs of initial hypotension. 6. Gout. Continue allopurinol. 7. Diabetic neuropathy. Continue the patient's gabapentin and morphine sulfate ER. 8. Carotid artery disease. Continue the patient's aspirin and statin. 9. Chronic kidney disease. The patient's creatinine is slightly above what appears to be his baseline. 10. FEN: The patient will have a consistent carbohydrate diet and fluids as above. 11. DVT prophylaxis: The patient will be on Lovenox subcu. 12. Disposition: The patient is admitted to observation to the hospital, but will be going to the ICU for intensive monitoring. TIME SPENT: Approximately 60 minutes were spent on the admission of this patient, 30 of which was spent [id number] with the patient obtaining history and physical and discussing treatment plan. This plan has been discussed with my attending, Dr. Zenobia Batres, and she is in agreement. CECI LLAMAS [id number]/[facility] #: [id number] MTDStorm
[2019-03-21] MEDS: Enoxaparin(*) 40 MG/0.4 ML SYR SUBCUT SCH (20:41)
[2019-03-21] MEDS: Divalproex DR TAB(*) 250 MG PO SCH (20:42)
[2019-03-21] MEDS: Atorvastatin* 10 MG TAB PO SCH (20:42)
[2019-03-21] MEDS: clonazePAM TAB(*) 0.5 MG PO SCH (20:42)
[2019-03-21] MEDS: Gabapentin CAP(*) 300 MG PO SCH (20:42)
[2019-03-21] MEDS: Amantadine CAP* 100 MG PO SCH (20:42)
[2019-03-21] MEDS: guaiFENesin ER TAB 600 MG PO SCH (20:42)
[2019-03-21] MEDS: Morphine TAB Extended Release (*) 15 MG TAB.ER PO SCH (20:43)
[2019-03-21] MEDS ORDERED: Labetalol TAB* 200 MG PO SCH (21:00)
[2019-03-21] MEDS: DOXYcycline IV* 100 MG in NS 0.9% 250 ML* 250 ML IVPB SCH (21:01)
[2019-03-21 21:08] LABS: Troponin I 0.04 ng/mL (<0.03)
[2019-03-21] MEDS: Insulin LISPRO* 1 UNITS UNIT SUBCUT SCH (21:11)
[2019-03-21] MEDS: Labetalol TAB* 100 MG PO SCH (21:11)
[2019-03-21 23:20] LABS: Troponin I 0.03 ng/mL (<0.03)
[2019-03-22] MEDS: Lactated Ringers 1000 ML Bag* 1,000 ML IV SCH (03:51)
[2019-03-22 05:06] LABS: ABS Basophils 0.1 10^3/ul (0-0.2); ABS Eosinophils 0.1 10^3/ul (0-0.6); ABS Lymphocytes 2.5 10^3/ul (1.0-4.8); ABS Monocytes 0.7 10^3/ul (0-0.8); ABS Neutrophils 6.9 10^3/ul (1.5-7.7); Eosinophil % 1.4 %; Hematocrit 35 % (42-52); Hemoglobin 11.5 g/dL (14.0-18.0); Lymphocyte % 24.4 %; Mean Corpuscular HGB Conc 33 g/dL (31-36); Mean Corpuscular Hemoglobin 28 pg (27-31); Mean Corpuscular Volume 84 fL (80-94); Mean Platelet Volume 7.8 fL (7.4-10.4); Nucleated Red Blood Cells % 0.1; Platelet Count 116 10^3/uL (150-450); Red Cell Distribution Width 16 % (10-15); White Blood Count 10.4 10^3/uL (3.5-10.8)
[2019-03-22 05:21] LABS: BUN/Creatinine Ratio 15.5 (8-20); Calcium 8.7 mg/dL (8.6-10.3); EGFR African American 75.1 (>60); EGFR Non-African American 62.1 (>60); Magnesium 1.4 mg/dL (1.9-2.7); Potassium 4.1 mmol/L (3.5-5.0)
[2019-03-22] MEDS: hydrALAZINE IV* 20 MG/ML VIAL IV SLOW PU PRN (06:39)
[2019-03-22] MEDS: Insulin LISPRO* 1 UNITS UNIT SUBCUT SCH ×4 (07:29→20:47)
[2019-03-22] MEDS: Labetalol TAB* 100 MG PO SCH ×2 (08:13→19:59)
[2019-03-22] MEDS: Magnesium Oxide TAB* 400 MG PO SCH ×2 (08:26→19:51)
[2019-03-22] MEDS: Aspirin EC TAB* 81 MG TAB.EC PO SCH (08:26)
[2019-03-22] MEDS: Amantadine CAP* 100 MG PO SCH ×2 (08:26→22:36)
[2019-03-22] MEDS: Folic Acid TAB* 1 MG PO SCH (08:27)
[2019-03-22] MEDS: Allopurinol TAB* 100 MG PO SCH (08:27)
[2019-03-22] MEDS: Gabapentin CAP(*) 300 MG PO SCH ×4 (08:27→19:46)
[2019-03-22] MEDS: Morphine TAB Extended Release (*) 15 MG TAB.ER PO SCH ×3 (08:27→19:49)
[2019-03-22] MEDS: DULoxetine DR CAP* 30 MG CAP.DR PO SCH (08:27)
[2019-03-22] MEDS: Multivitamins/Minerals TAB PO SCH (08:27)
[2019-03-22] MEDS: guaiFENesin ER TAB 600 MG PO SCH ×2 (08:27→19:50)
[2019-03-22] MEDS: Divalproex DR TAB(*) 250 MG PO SCH ×2 (08:27→19:49)
[2019-03-22] MEDS: Pantoprazole TAB * 40 MG TAB PO SCH (08:27)
[2019-03-22] MEDS: DOXYcycline IV* 100 MG in NS 0.9% 250 ML* 250 ML IVPB SCH ×2 (09:08→20:25)
--- NOTE | 2019-03-22 16:13 | PN ---
Subjective Date of Service: 03/22/19 Interval History: Pt is feeling well. He denies any pain. He has no SOB or cough. He has been up to the chair. He has no complaints today. Objective Active Medications: Acetaminophen (Tylenol Tab*) 650 mg PO Q6H PRN PRN Reason: MILD PAIN or TEMP > 100.4 Allopurinol (Zyloprim Tab*) 200 mg PO 0900 [facility] Last Admin: 03/22/19 08:27 Dose: 200 mg Amantadine HCl (Symmetrel Cap*) 100 mg PO BID [facility] Last Admin: 03/22/19 08:26 Dose: 100 mg Aspirin (Aspirin Ec Tab*) 81 mg PO QAM [facility] Last Admin: 03/22/19 08:26 Dose: 81 mg Atorvastatin Calcium (Lipitor*) 10 mg PO 2100 [facility]; Protocol Last Admin: 03/21/19 20:42 Dose: 10 mg Benzonatate (Tessalon Cap*) 100 mg PO BID PRN PRN Reason: COUGH Clonazepam (Klonopin Tab(*)) 0.5 mg PO BEDTIME [facility] Last Admin: 03/21/19 20:42 Dose: 0.5 mg Dextrose (Dextrose 50% Vial 50 Ml*) 25 ml IV PUSH .FOR FS < 60 - SS PRN PRN Reason: FS < 60 Divalproex Sodium (Depakote Dr Tab(*)) 250 mg PO BID [facility] Last Admin: 03/22/19 08:27 Dose: 250 mg Duloxetine HCl (Cymbalta Cap*) 30 mg PO QAM [facility] Last Admin: 03/22/19 08:27 Dose: 30 mg Enoxaparin Sodium (Lovenox(*)) 40 mg SUBCUT Q24H [facility] Last Admin: 03/21/19 20:41 Dose: 40 mg Folic Acid (Folvite Tab*) 1 mg PO QAM [facility] Last Admin: 03/22/19 08:27 Dose: 1 mg Gabapentin (Neurontin Cap(*)) 600 mg PO QID [facility] Last Admin: 03/22/19 13:24 Dose: 600 mg Guaifenesin (Mucinex*) 1,200 mg PO BID [facility] Last Admin: 03/22/19 08:27 Dose: 1,200 mg Hydralazine HCl (Apresoline Iv*) 5 mg IV SLOW PU Q6H PRN PRN Reason: Systolic Bp Greater Than: 160 Last Admin: 03/22/19 06:39 Dose: 5 mg Doxycycline Hyclate 100 mg/ (Sodium Chloride) 250 mls @ 250 mls/hr IVPB Q12H [facility] Last Admin: 03/22/19 09:08 Dose: 250 mls/hr Ceftriaxone Sodium 1 gm/ (Sodium Chloride) 50 mls @ 200 mls/hr IVPB Q24H [facility] Last Admin: 03/21/19 19:44 Dose: 200 mls/hr Insulin Human Lispro (Humalog*) 0 units SUBCUT [facility]; Protocol Last Admin: 03/22/19 13:25 Dose: 4 units Labetalol HCl (Trandate Tab*) 100 mg PO BID [facility] Last Admin: 03/22/19 08:13 Dose: 100 mg Lactulose (Lactulose*) 15 ml PO BID PRN PRN Reason: CONSTIPATION Magnesium Oxide (Magox 400 Tab*) 400 mg PO BID [facility] Last Admin: 03/22/19 08:26 Dose: 400 mg Morphine Sulfate (Ms Contin(*)) 15 mg PO TID [facility] Last Admin: 03/22/19 13:25 Dose: 15 mg Multivitamins/Minerals (Theragran/Minerals Tab*) 1 tab PO DAILY [facility] Last Admin: 03/22/19 08:27 Dose: 1 tab Ondansetron HCl (Zofran Inj*) 4 mg IV Q6H PRN PRN Reason: NAUSEA Oxycodone HCl (Roxycodone Tab*) 5 mg PO TID PRN PRN Reason: PAIN SEVERE Last Admin: 03/22/19 13:25 Dose: 5 mg Oxycodone/Acetaminophen (Percocet 5/325 Tab*) 1 tab PO TID PRN PRN Reason: PAIN SEVERE Pantoprazole Sodium (Protonix Tab*) 40 mg PO DAILY [facility] Last Admin: 03/22/19 08:27 Dose: 40 mg Rivastigmine (Exelon Patch(Nf)) 1 patch TRANSDERM QAM [facility] Vital Signs - 8 hr 03/22/19 03/22/19 03/22/19 08:33 09:00 09:13 Temperature Pulse Rate 72 78 79 Respiratory 23 13 18 Rate Blood Pressure 144/78 130/62 (mmHg) O2 Sat by Pulse 98 95 94 Oximetry 03/22/19 03/22/19 03/22/19 09:30 10:00 10:30 Temperature Pulse Rate 72 67 65 Respiratory 12 17 17 Rate Blood Pressure 159/72 149/62 168/83 (mmHg) O2 Sat by Pulse 95 96 96 Oximetry 03/22/19 03/22/19 03/22/19 11:00 11:30 11:35 Temperature 98.4 F Pulse Rate 66 72 Respiratory 26 25 Rate Blood Pressure 155/80 152/66 (mmHg) O2 Sat by Pulse 94 95 Oximetry 03/22/19 03/22/19 03/22/19 12:00 13:00 13:31 Temperature Pulse Rate 68 72 65 Respiratory 15 16 13 Rate Blood Pressure 150/66 128/60 (mmHg) O2 Sat by Pulse 96 95 95 Oximetry 03/22/19 03/22/19 14:00 14:30 Temperature Pulse Rate 64 63 Respiratory 14 17 Rate Blood Pressure 134/62 123/71 (mmHg) O2 Sat by Pulse 95 96 Oximetry Oxygen Devices in Use Now: None Appearance: Elderly male sitting up in bed, NAD Eyes: No Scleral Icterus Ears/Nose/Mouth/Throat: Mucous Membranes Moist Respiratory: Symmetrical Chest Expansion and Respiratory Effort, Clear to Auscultation Cardiovascular: NL Sounds; No Murmurs; No JVD, RRR, No Edema Abdominal: NL Sounds; No Tenderness; No Distention Extremities: No Clubbing, Cyanosis Skin: No Nodules or Sclerosis Neurological: Alert and Oriented x 3 Result Diagrams: 03/22/19 04:57 03/22/19 04:57 Microbiology and Other Data: Microbiology 03/21/19 15:27 Aerobic Blood Culture - Preliminary Blood Venous No Growth Day 1 Anaerobic Blood Culture - Preliminary No Growth Day 1 03/21/19 15:27 Aerobic Blood Culture - Preliminary Blood Venous No Growth Day 1 Anaerobic Blood Culture - Preliminary No Growth Day 1 03/21/19 15:10 Urine Culture - Final Urine No Growth (<1,000 CFU/mL) 03/21/19 19:05 Nasal Screen MRSA (PCR) - Final Nasal Mrsa Not Detected 03/21/19 15:10 Legionella Urinary Antigen - Final Urine Negative Legionella Antigen Streptococcus pneumoniae Ag Screen - Final Negative S. pneumo Antigen Assess/Plan/Problems-Billing Assessment: - Patient Problems (1) Sepsis Current Visit: Yes Status: Acute Comment: Pt severely septic on admission ( met based on elevated lactic acidbut not clear source. Treating for possible pna. Lactic acidosis resolved. VS stable. (2) Pneumonia Current Visit: Yes Status: Acute Code(s): J18.9 - PNEUMONIA, UNSPECIFIED ORGANISM SNOMED Code(s): 019915068 Comment: Questionable pna on admission. Will continue ceftriaxone and doxycycline. Clinically however he does not appear to have pneumonia. Given how ill he was when he presented will continue to treat. (3) Elevated troponin Current Visit: Yes Status: Acute Code(s): R79.89 - OTHER SPECIFIED ABNORMAL FINDINGS OF BLOOD CHEMISTRY SNOMED Code(s): 352379118 Comment: Likley secondary to demand ischemia. EKG unconcerning. No further work up at this time. (4) Diabetes mellitus Current Visit: Yes Status: Acute Code(s): E11.9 - TYPE 2 DIABETES MELLITUS WITHOUT COMPLICATIONS SNOMED Code(s): 48595805 Comment: Pt is a type II diabetic. Metformin is on hold. He has now twice in the last couple months had a significant lactic acidosis. I question if he should remain off this medication. For now, blood sugars have been variable. Continue lispro sliding scale. (5) Hypertension Current Visit: Yes Status: Acute Code(s): I10 - ESSENTIAL (PRIMARY) HYPERTENSION SNOMED Code(s): 47576003 Comment: BP under fair control. Continue labetolol and resume lisinopril. (6) Parkinson disease Current Visit: Yes Status: Acute Code(s): G20 - PARKINSON'S DISEASE SNOMED Code(s): 40675416 Comment: Continue amantidine and rivastigmine patch. (7) Chronic pain Current Visit: Yes Status: Acute Code(s): G89.29 - OTHER CHRONIC PAIN SNOMED Code(s): 04868506 Comment: Pain under control. Continue gabapentin, morphine ER and prn percocet. (8) Depression Current Visit: Yes Status: Acute Code(s): F32.9 - MAJOR DEPRESSIVE DISORDER , SINGLE EPISODE, UNSPECIFIED SNOMED Code(s): 90409535 Comment: Continue depakote and duloxetine. (9) DVT prophylaxis Current Visit: Yes Status: Acute Code(s): Z29.9 - ENCOUNTER FOR PROPHYLACTIC MEASURES, UNSPECIFIED SNOMED Code(s): 157566526 Comment: lovenox (10) Full code status Current Visit: Yes Status: Acute Code(s): Z78.9 - OTHER SPECIFIED HEALTH STATUS SNOMED Code(s): 246959202
[2019-03-22] MEDS: RIVASTIGMINE 9.5 MG TRANSDERM SCH (16:46)
[2019-03-22] MEDS: Enoxaparin(*) 40 MG/0.4 ML SYR SUBCUT SCH (19:48)
[2019-03-22] MEDS: Atorvastatin* 10 MG TAB PO SCH (19:52)
[2019-03-22] MEDS: clonazePAM TAB(*) 0.5 MG PO SCH (19:52)
[2019-03-22] MEDS: cefTRIAXone(*) 1 GM in NS 0.9% 50 ML* 50 ML IVPB SCH (20:25)
[2019-03-22] MEDS ORDERED: Lisinopril TAB* 10 MG PO SCH (21:00)
[2019-03-23] MEDS: hydrALAZINE IV* 20 MG/ML VIAL IV SLOW PU PRN (00:03)
[2019-03-23] MEDS ORDERED: Labetalol IV* 5 MG/ML 20 ML VIAL IV PUSH ONE (03:29)
[2019-03-23] MEDS: Insulin LISPRO* 1 UNITS UNIT SUBCUT SCH ×3 (07:17→16:19)
[2019-03-23] MEDS ORDERED: Labetalol TAB* 100 MG PO SCH (09:00)
[2019-03-23] MEDS: DOXYcycline IV* 100 MG in NS 0.9% 250 ML* 250 ML IVPB SCH (09:04)
[2019-03-23] MEDS: DULoxetine DR CAP* 30 MG CAP.DR PO SCH (09:05)
[2019-03-23] MEDS: Multivitamins/Minerals TAB PO SCH (09:05)
[2019-03-23] MEDS: Allopurinol TAB* 100 MG PO SCH (09:05)
[2019-03-23] MEDS: Divalproex DR TAB(*) 250 MG PO SCH (09:05)
[2019-03-23] MEDS: guaiFENesin ER TAB 600 MG PO SCH (09:05)
[2019-03-23] MEDS: Pantoprazole TAB * 40 MG TAB PO SCH (09:05)
[2019-03-23] MEDS: Folic Acid TAB* 1 MG PO SCH (09:05)
[2019-03-23] MEDS: Gabapentin CAP(*) 300 MG PO SCH ×3 (09:05→16:48)
[2019-03-23] MEDS: Magnesium Oxide TAB* 400 MG PO SCH (09:05)
[2019-03-23] MEDS: Aspirin EC TAB* 81 MG TAB.EC PO SCH (09:05)
[2019-03-23] MEDS: Morphine TAB Extended Release (*) 15 MG TAB.ER PO SCH ×2 (09:06→13:31)
[2019-03-23] MEDS: RIVASTIGMINE 9.5 MG TRANSDERM SCH (09:18)
[2019-03-23] MEDS: Amantadine CAP* 100 MG PO SCH (09:18)
[2019-03-23 16:21] VITALS: BP 168/52
--- NOTE | 2019-03-23 20:33 | DS ---
CC: Dr. Gema Cabral * DISCHARGE SUMMARY: DATE OF ADMISSION: 03/21/19 DATE OF DISCHARGE: 03/23/19 PRIMARY CARE PROVIDER: Dr. Gema Cabral. ATTENDING PHYSICIAN: Dr. Bonifacio Ellis * (dictated by CECI Luong). PRIMARY DIAGNOSES: 1. Pneumonia. 2. Sepsis. 3. Lactic acidosis, presumably from dehydration, metformin use and exacerbated by infection. SECONDARY DIAGNOSES: 1. Parkinson's disease. 2. Diabetes mellitus, type 2. 3. Hypertension. 4. Carotid artery stenosis. 5. Charcot foot. 6. Depression. 7. Gout. 8. Irritable bowel syndrome. 9. History of recurrent nephrolithiasis. 10. Neuropathy. STUDIES WHILE IN THE HOSPITAL: Chest x-ray, impression: Low lung volumes, small right basilar infiltrate. DISCHARGE MEDICATIONS: Home medications: 1. Acetaminophen 500 mg p.o. b.i.d. p.r.n. 2. Allopurinol 200 mg p.o. daily. 3. Amantadine 100 mg p.o. b.i.d. 4. Aspirin 81 mg p.o. daily. 5. Calcium plus D Soft Chews 1 chew p.o. b.i.d. 6. Cholecalciferol 2000 units p.o. daily. 7. Clonazepam 0.5 mg p.o. at bedtime. 8. Divalproex 250 mg p.o. b.i.d. 9. Duloxetine DR 30 mg p.o. daily. 10. Folic acid 1 mg p.o. daily. 11. Gabapentin 600 mg p.o. 4 times daily. 12. Labetalol 100 mg p.o. b.i.d. 13. Lactulose 15 mL p.o. b.i.d. p.r.n. 14. Lisinopril 10 mg p.o. at bedtime. 15. Meloxicam 7.5 mg p.o. daily. 16. Morphine ER 15 mg p.o. t.i.d. 17. Multivitamin/minerals 1 tab p.o. daily. 18. Omeprazole 20 mg p.o. daily. 19. Oxycodone/acetaminophen 10/325 one tab p.o. t.i.d. p.r.n. 20. Pravastatin 40 mg p.o. at bedtime. 21. Rivastigmine patch 9.5 mg 1 patch transdermally daily. 22. Triamcinolone nasal spray 2 sprays to both nares daily. New home medications: 1. Cefpodoxime 200 mg p.o. q.12 hours. 2. Doxycycline 100 mg p.o. q.12 hours. 3. Guaifenesin 1200 mg p.o. b.i.d. p.r.n. 4. Magnesium oxide 400 mg p.o. b.i.d. Discontinued home medication: Metformin. HISTORY OF PRESENT ILLNESS/HOSPITAL COURSE: Mr. Chapa is a 73-year-old male with past medical history of Parkinson's disease; diabetes mellitus, type 2, not on insulin; hypertension; carotid artery stenosis, who presented to the ER on 03/21/19 with complaints of cough, shortness of breath, malaise, urinary frequency, urgency and incontinence. For full and complete details, please see the history and physical dictated by CECI Pichardo, on 03/21/19, but in short, the patient presents with the above symptoms and was admitted having met sepsis criteria with likely source of infection of pneumonia versus urinary tract infection. He was started on ceftriaxone and doxycycline with good results. His lactic acidosis improved with treatment. He remained afebrile throughout his stay. His oxygenation improved, but at no point did he require supplemental oxygen. At the time of discharge, the patient states he feels well. He denies fever, chills, shortness of breath. He does have an occasional nonproductive cough. Legionella urinary antigen and Strep pneumo urinary antigen were both negative. Due to concern for urinary tract infection in the setting of urinary symptoms and trace leukocyte esterase on urinalysis, a urine culture was sent. There was no growth and therefore the patient was continued on treatment for community-acquired pneumonia. The patient also presented with a lactic acidosis of 4.0 that slowly decreased to 0.8. The patient takes metformin 1000 b.i.d. at home. He was dehydrated at admission. He was noted to have had lactic acidosis twice in the last few months. There was concern that his metformin may be contributing to this. His lactic acidosis was likely exacerbated by his pneumonia infection. At this time , his metformin has been discontinued. He was started on fingersticks a.c. with lispro sliding scale coverage. His blood sugars ranged from 93 to 214 while in the hospital. Hemoglobin A1c was ordered, but is not available prior to the patient's discharge. The patient was advised to discontinue his metformin and follow with his primary care provider regarding further management of his type 2 diabetes mellitus. At the time of discharge, the patient states he is feeling well. He has an occasional nonproductive cough without fevers, chills and shortness of breath. He does have some mild baseline weakness and denies change in his weakness. His urinary symptoms of frequency, urgency, and incontinence have resolved. He has no other complaints today. Mr. Chapa is stable for discharge. PHYSICAL EXAMINATION: Vital Signs: Temperature 98.4 oral, heart rate 62, respiratory rate 16, oxygen saturation 98% on room air, blood pressure 142/81. General: Mr. Chapa is a well-developed, well-nourished, overweight, older white male, who is sitting up in bed. He appears to be in no acute distress. He is pleasant, cooperative. HEENT: PERRL. EOMI. Sclerae nonicteric. Hearing is grossly intact. Oral mucous membranes are moist. The pharynx is clear without lesions, erythema, or exudate. Tongue is at midline. Palate elevates symmetrically. Cardiovascular: Regular rate and rhythm with S1, S2 present. No murmurs, rubs, clicks, or gallops. There is no JVD. There is no peripheral edema. Pulmonary: Symmetrical chest expansion without use of accessory muscles. Clear to auscultation bilaterally without rhonchi, wheeze, rales. Abdomen: Bowel sounds in all quadrants. Soft without tenderness to palpation. Neuro: The patient is awake. He is alert and oriented x3. Cranial nerves II through XII are grossly intact. He is able to move all of his extremities with motor strength of 5/5 bilaterally in the upper and lower extremities. Quality Control Inspector strength is equal. DISCHARGE PLAN: Mr. Chapa will be discharged back to [place]. ACTIVITY: As tolerated. DIET: 1. Heart healthy. 2. ADA/diabetic. MEDICATIONS: 1. Can continue magnesium oxide 400 mg b.i.d. 2. Continue Vantin, doxycycline as prescribed. 3. Discontinue metformin. EDUCATION: 1. Recheck magnesium in 7 to 10 days and follow with primary care provider. 2. Follow up with primary care provider in 4 to 7 days to discuss recent hospitalization, discontinuation of metformin, current hemoglobin A1c. 3. Return to the ER or nearest hospital if you experience any return or worsening of symptoms, chest pain or discomfort, shortness of breath, high fevers, chills, night sweats, dizziness, lightheadedness, loss of consciousness or any other worrisome signs or symptoms. This is a summarized report of a complex medical history and hospital stay. For further details, please see the entire medical record. TIME SPENT: Approximately 35 minutes were spent on this discharge, greater than half that time was spent with the patient discussing discharge plans and instructions. CECI FUNES [id number]/[facility] #: [id number] JAYCOB
== END 2019-03-23 18:50 | disposition home or self-care (01) ==
LOC: ED 13:53 → ICU 17:54 → MED 03-22 09:47
PROVIDERS: ADMIT Internal Medicine; ATTEND Internal Medicine
DX: A41.9 Sepsis, unspecified organism (principal); J18.9 Pneumonia, unspecified organism; E87.2 Acidosis; G20 Parkinson's disease; E11.22 Type 2 diabetes mellitus with diabetic chronic kidney disease; I12.9 Hypertensive chronic kidney disease with stage 1 through stage 4 chronic kidney disease, or unspecified chronic kidney disease; N18.9 Chronic kidney disease, unspecified; I65.29 Occlusion and stenosis of unspecified carotid artery; M14.671 Charcot's joint, right ankle and foot; F32.9 Major depressive disorder, single episode, unspecified; M10.9 Gout, unspecified; K58.9 Irritable bowel syndrome, unspecified; Z87.442 Personal history of urinary calculi; G62.9 Polyneuropathy, unspecified; Z79.82 Long term (current) use of aspirin; Z79.899 Other long term (current) drug therapy; Z87.891 Personal history of nicotine dependence; I25.2 Old myocardial infarction
CPT/HCPCS: 36415; 71046; 80048; 80053; 81003; 81015; 83036; 83605; 83735; 84484; 85025; 86140; 87040; 87070; 87086; 87205; 87641; 87899; 93005; 96361; 96365; 96366; 96367; 96372; 96375; 96376; 99284; A9270-GY; G0378; G8978-GP-CK; G8979-GP-CI; J0360; J0692; J0696; J1650

== ENCOUNTER 2019-06-01 12:06 | Observation (INO) | payer MEDICARE ==
[2019-06-01] MEDS ORDERED: NS 0.9% 1000 ML** 1,000 ML IV ONE ×2 (12:14→14:14)
--- NOTE | 2019-06-01 12:24 | ED ---
Syncope/Near Syncope - HPI Summary HPI Summary: 73 year old M presenting to [facility] accompanied by EMS complains of syncopal episode for 15 seconds earlier during OT today 06/01/2019. Patient reports weakness of the whole body. He was standing up when the episode occured. Patient denies CP, n/v/d, fever, and head injury. PMHx of kidney stones, diabetes, and parkinsons and has a similar episode of syncope before. SocHx of past smoking. No drug or alcohol use. Hx of The patient rates the pain 0/10 in severity. Symptoms aggravated by exertion. Symptoms alleviated by nothing. Medications reviewed. Allergies noted. - History Of Current Complaint Hx Obtained From: Patient Onset/Duration: Sudden Onset Timing: Seconds - 15 Activity At Onset: Exertion - standing up Aggravating Factor(s): Exertion Alleviating Factor(s): Nothing Associated Signs And Symptoms: Other - positive - syncope negative - CP, n/v/d, fever, head injury - Allergies/Home Medications Allergies/Adverse Reactions: Allergies Allergy/AdvReac Type Severity Reaction Status Date / Time No Known Allergies Allergy Verified 03/21/19 14:02 Home Medications: Home Medications Allopurinol TAB* [Zyloprim 100 MG TAB*] 200 mg PO 0900 11/03/17 [History Confirmed 06/01/19] Amantadine CAP* [Symmetrel CAP*] 100 mg PO 0900,2300 11/03/17 [History Confirmed 06/01/19] Cholecalciferol (Vitamin D3) [Vitamin D3] 2,000 unit PO QAM 11/03/17 [History Confirmed 06/01/19] DULoxetine DR CAP* [Cymbalta CAP*] 30 mg PO QAM 11/03/17 [History Confirmed ] Folic Acid TAB* [Folvite TAB*] 1 mg PO QAM 11/03/17 [History Confirmed 06/01/19] Gabapentin TAB(NF) [Neurontin 600 mg TAB(NF)] 600 mg PO QID 11/03/17 [History Confirmed 06/01/19] Labetalol TAB* [Trandate TAB*] 100 mg PO BID 11/03/17 [History Confirmed ] Lactulose* 15 ml PO BID PRN 11/03/17 [History Confirmed 06/01/19] Rivastigmine PATCH 9.5 MG(NF) [Exelon PATCH(NF)] 1 patch TRANSDERM QAM 11/03/17 [History Confirmed 06/01/19] clonazePAM TAB(*) [Klonopin TAB(*)] 0.5 mg PO BEDTIME PRN 11/03/17 [History Confirmed 06/01/19] Acetaminophen [Acetaminophen Extra Strength] 100 mg PO TID PRN 01/11/19 [ History Confirmed 06/01/19] Aspirin EC TAB* [Ecotrin EC Low Dose 81 MG*] 81 mg PO QAM 01/11/19 [History Confirmed 06/01/19] Divalproex DR TAB(*) [Depakote DR TAB(*)] 250 mg PO BID 01/11/19 [History Confirmed 06/01/19] Lisinopril TAB* [Prinivil TAB 10 MG*] 10 mg PO BEDTIME 01/11/19 [History Confirmed 06/01/19] Meloxicam(NF) [Mobic(NF)] 7.5 mg PO DAILY 01/11/19 [History Confirmed 06/01/19] Multivitamins/Minerals TAB* [Theragran/minerals TAB*] 1 tab PO DAILY 01/11/19 [ History Confirmed 06/01/19] Omeprazole CAP (NF) [Prilosec CAP* 20 MG] 20 mg PO DAILY 01/11/19 [History Confirmed 06/01/19] Pravastatin (NF) [Pravachol (NF)] 40 mg PO QPM 01/11/19 [History Confirmed 06/01] oxyCODONE/Acetamin 10/325(NF) [Percocet 10/325 (NF)] 1 tab PO QID PRN 01/11/19 [ History Confirmed 06/01/19] Calcium Carb/Vitamin D3/Vit K1 [Calcium + D Soft Chewable Tab] 1 chw PO BID [History Confirmed 06/01/19] Morphine TAB Extended Rel(*) [Ms Contin(*)] 15 mg PO TID 03/21/19 [History Confirmed 06/01/19] Magnesium Oxide TAB* [MagOx 400 TAB*] 400 mg PO BID #60 tab 03/23/19 [Rx Confirmed 06/01/19] Triamcinolone NASAL SPRAY* [Nasacort AQ Nasal [place]*] 2 spray BOTH NARES BEDTIME 06/01/19 [History Confirmed 06/01/19] PMH/Surg Hx/FS Hx/Imm Hx Endocrine/Hematology History: Reports: Hx Diabetes, Hx Anemia Cardiovascular History: Reports: Hx Hypercholesterolemia, Hx Hypertension, Other Cardiovascular Problems/Disorders - left and right carotid blockage Denies: Hx Pacemaker/ICD Respiratory History: Reports: Hx Seasonal Allergies Denies: Hx Asthma GI History: Reports: Hx Gastroesophageal Reflux Disease, Hx Irritable Bowel, Other GI Disorders - chronic constipation History: Reports: Hx Kidney Stones - BILATERAL Denies: Hx Dialysis, Hx Renal Disease - KIDNEY STONES Musculoskeletal History: Reports: Hx Arthritis, Hx Back Problems - 2 lumbar laminectomy surgeries, Hx Bursitis - elbow, Hx Gout Sensory History: Reports: Hx Contacts or Glasses - to read, Hx Hearing Aid - both ears Opthamlomology History: Reports: Hx Contacts or Glasses - to read Neurological History: Reports: Hx Nerve Disease - DM neuropathy, Parkinsons- diagnosed 2013, Hx Peripheral Neuropathy - DM, Other Neuro Impairments/ Disorders - Charcot Roberta Tooth, Parkinson's Psychiatric History: Reports: Hx Depression Denies: Hx Panic Disorder - Cancer History Hx Chemotherapy: No - Surgical History Surgery Procedure, Year, and Place: Lumbar Laminectomy x2 20 years ago in [place]. SKIN GRAFTS ([place]). CHOLECYSTECTOMY. LITHOTRIPSY- multiple times. bilat cataract surgery with IOL. green light laser for prostate Hx Anesthesia Reactions: Yes - after 1 surgery had delayed urinary retention - Family History Known Family History: Positive: Cardiac Disease, Hypertension, Diabetes, Other - Parkinson's, pneumonia - Social History Alcohol Use: None Substance Use Type: Reports: None Hx Tobacco Use: Yes Smoking Status (MU): Former Smoker Type: Cigarettes Have You Smoked in the Last Year: No Review of Systems Negative: Fever Negative: Chest Pain Negative: Vomiting, Diarrhea, Nausea Positive: Syncope - 15 seconds after standing up during OT All Other Systems Reviewed And Are Negative: Yes Physical Exam - Summary Physical Exam Summary: Constitutional: Well-developed, Well-nourished, Alert. (-) Distressed Skin: Warm, Dry HENT: Normocephalic; Atraumatic Eyes: Conjunctiva normal Neck: Musculoskeletal ROM normal neck. (-) JVD, (-) Stridor, (-) Tracheal deviation Cardio: Rhythm regular, rate normal, Heart sounds normal; Intact distal pulses; Radial pulses are 2+ and symmetric. (-) Murmur Pulmonary/Chest wall: Effort normal. (-) Respiratory distress, (-) Wheezes, (-) Rales Abd: Soft, (-) tenderness, (-) Distension, (-) Guarding, (-) Rebound Musculoskeletal: (-) Edema Lymph: (-) Cervical adenopathy Neuro: Alert, Oriented x3 Psych: Mood and affect Normal Triage Information Reviewed: Yes Vital Signs On Initial Exam: Initial Vitals Temp Pulse Resp BP Pulse Ox 96.5 F 64 20 134/64 96 06/01/19 12:12 06/01/19 12:12 06/01/19 12:12 06/01/19 12:12 06/01/19 12:12 Vital Signs Reviewed: Yes Procedures - Sedation Patient Received Moderate/Deep Sedation with Procedure: No Diagnostics - Laboratory Result Diagrams: 06/01/19 12:48 06/01/19 14:40 Lab Statement: Any lab studies that have been ordered have been reviewed, and results considered in the medical decision making process. - Radiology CXR Radiology Interpretation Completed By: Radiologist Summary of Radiographic Findings: IMPRESSION: Linear airspace opacification the left lower lung zone (atelectasis versus infiltrate). has reviewed this report. - EKG 1224 Cardiac Rate: NL EKG Rhythm: Sinus Rhythm Summary of EKG Findings: An EKG at 1224 reveals SR at a rate of 61 bpm. Nonstemi. has reviewed and interpreted this EKG. Course/Dx Course Of Treatment: Patient is here after a syncopal episode. Patient was sitting in the to standing doing occupational therapy and syncopized. Patient has been feeling generalized weakness for the past couple of days and not been drinking or eating. Patient was found to be positive for orthostatic hypotension. Patient had blood or performers elevated creatinine and troponin. Patient does have a elevated troponin at baseline. Patient had 2 L of fluid and then had repeat blood work which showed improved creatinine and troponin. However, when patient attempts to stand, he felt like he is going to faint. Due to this, patient was admitted to the hospital - Diagnoses Provider Diagnoses: Syncope - Physician Notifications Discussed Care of Patient With: Bonifacio Ellis Time Discussed With Above Provider: 15:22 Instructed by Provider To: Admit As Inpatient - Discussed patient case with Dr. Ellis, hospitalist, who accepted the patient for admission to [facility] [place]. Discharge ED - Sign-Out/Discharge Documenting (check all that apply): Patient Departure - Admit - Discharge Plan Condition: Fair Disposition: ADMITTED TO [facility] Referrals: Gema Cabral MD [Primary Care Provider] - - Billing Disposition and Condition Condition: FAIR Disposition: Admitted to [facility] - Attestation Statements Document Initiated by Scribe: Yes Documenting Scribe: Jamaal Castro Provider For Whom Patibe is Documenting (Include Credential): Ayad Billings MD Scribe Attestation: I, Jamaal Castro, scribed for Ayad Billings MD on 06/01/19 at 1829. Scribe Documentation Reviewed: Yes Provider Attestation: The documentation as recorded by the scribe, Jamaal Castro accurately reflects the service I personally performed and the decisions made by me, Ayad Billings MD Status of Scribe Document: Viewed
--- OUTSIDE RECORDS SUMMARY | 2019-06-01 12:47 | XMS REPORT | Continuity of Care Document ---
:1945 External Reference #:[id number] Author Name Kayden Cosme M.D. (transmitted by agent of provider Chio Tatum ) Address [address], [place] [address] Care Team Providers Name Role Phone Gema Cabral MD - Family Care Team Information Telephone Service Adviser [phone] Medicine Problems Active Problems Provider Date Parkinson's disease Kayden Cosme M.D. 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 Onset: 05/09/2019 Amnesia Kayden Cosme M.D. Onset: 05/09/2019 Social History Type Date Description Comments Sex Unknown Cigarette Use Quit 2 Years Ago ETOH Use Denies alcohol use Tobacco Use Start: Unknown End: Patient is a former smoker Unknown Recreational Drug Use Never Used Drugs Smoking Status Reviewed: 05/09/19 Patient is a former smoker Exercise Type/Frequency Does not exercise Allergies, Adverse Reactions, Alerts Description No Known Drug Allergies Medications Active Medications SIG Qnty Indications Ordering Provider Date Amantadine HCL 1 by mouth two 60tabs Kayden Cosme, 03/08/2018 100mg times a day M.D. Tablets Magnesium 1 by mouth Unknown 400mg Tablets every day Labetalol HCL 1 by mouth Unknown 100mg [...] Daily Dose Of 3 Tablets Per Day Meloxicam 1 po daily Unknown 7.5mg Tablets [...] Available Vital Signs Date Vital Result Comment 05/09/2019 2:22pm Height 70 inches 5'10" Weight 195.00 lb Heart Rate 78 /min BP Systolic 110 mmHg BP Diastolic 82 mmHg BMI (Body Mass Index) 28.0 kg/m2 01/05/2019 1:45pm Height 70 inches 5'10" Weight [...] 29.6 kg/m2 Ejection Fraction 60-65% ECHO 11/16/2018 Results Test Acquired Date Facility Test Result H/L Range Note Laboratory test 05/02/2019 [facility] Prealbumin 28 mg/dL Normal 18-[address] [place] [address] [phone] C Reactive Protein 3.16 mg/L Normal <8.01 Erythrocyte Sed Rate 23 mm/Hr High 0-19 Procedures Date Code Description Status 01/05/2019 63111 EKG Tracing & Interpretation Completed 11/17/2018 18664 Treadmill Interp/Report Only Completed 11/17/2018 30071 Stress Test Supervsn W/Out I/R Completed 11/16/2018 82274 ECHO Transthorasic Realtime 2D W Doppler & Color Flow Hosp Completed Medical Devices Description No Information Available Encounters Type Date Location Provider Dx Diagnosis Office Visit 05/09/2019 [facility] Munirnereyda Cosme, G20 Parkinson' s 2:15p Services Of Antonina Ford disease R41.3 Other amnesia R26.81 Unsteadiness on feet Office Visit 05/02/2019 1:45p Wound Care Tia Hoffman, S91.302A Unspecified open Center AT [facility], RN, [employer]ENSE ATT[employer]NEY-BC wound, left foot, initial encounter E11.621 Type 2 diabetes mellitus with foot ulcer I70.245 Athscl [place] arteries of left leg w ulceration oth prt foot E46 Unspecified protein-calorie malnutrition L03.116 Cellulitis of left lower limb Office Visit 03/23/2019 [facility] Daily J18.9 Pneumonia, 10:17a Assoc,CECI Yoo unspecified Hospitalists organism A41.9 Sepsis, unspecified organism E87.2 Acidosis G20 Parkinson's disease E11.9 Type 2 diabetes mellitus without complications I10 Essential (primary) hypertension I25.10 Athscl heart disease of [place] coronary artery w/o ang pctrs F32.9 Major depressive disorder, single episode, unspecified M10.9 Gout, unspecified Office Visit 03/21/2019 10:17a [facility] Paxton A41.9 Sepsis, Assoc,CECI Fletcher unspecified Hospitalists organism E87.2 Acidosis G20 Parkinson's disease E11.40 Type 2 diabetes mellitus with diabetic neuropathy, unsp I10 Essential (primary) hypertension M10.9 Gout, unspecified I65.29 Occlusion and stenosis of unspecified carotid artery N18.9 Chronic kidney disease, unspecified Office Visit 01/13/2019 12:45p [facility] Sara Tavarez, A41.89 Other specified Assoc,shaila VÁSQUEZ sepsis Hospitalists J10.1 Flu due to oth ident influenza virus w oth resp manifest I10 Essential (primary) hypertension G89.29 Other chronic pain Office Visit 01/12/2019 12:45p [facility] Sara Dill, J10.1 Flu due to oth Assoc,shaila VÁSQUEZ ident influenza Hospitalists virus w oth resp manifest G89.29 Other chronic pain Office Visit 01/11/2019 12:45p [facility] Samia A41.89 Other specified Assoc,shaila Rodriguez, LUPE sepsis Hospitalists J10.1 Flu due to oth ident influenza virus w oth resp manifest Office Visit 01/05/2019 2:00p [facility] Alfonso Cain R55 Syncope and Of Antonina Nolasco M.D. collapse I65.29 Occlusion and stenosis of unspecified carotid artery I65.22 Occlusion and stenosis of left carotid artery Office Visit 11/17/2018 9:57a [facility] Shauna R55 Syncope and Assoc,shaila Cruz PA-C collapse Hospitalists R79.89 Other specified abnormal findings of blood chemistry G20 Parkinson's disease I10 Essential (primary) hypertension E78.5 Hyperlipidemia, unspecified I65.29 Occlusion and stenosis of unspecified carotid artery E11.9 Type 2 diabetes mellitus without complications M14.672 Charcot's joint, left ankle and foot N20.0 Calculus of kidney K58.9 Irritable bowel syndrome without diarrhea Office Visit 11/16/2018 9:56a [facility] Shuana I21.4 Non-St elevation Assoc,shaila Cruz PA-C (Nstemi) Hospitalists myocardial infarction W19.xxxA Unspecified fall, initial encounter D72.829 Elevated white blood cell count, unspecified E11.69 Type 2 diabetes mellitus with other specified complication E66.9 Obesity, unspecified F32.9 Major depressive disorder, single episode, unspecified G20 Parkinson's disease Office Visit 11/15/2018 [facility] Daily G20 Parkinson's 9:56a Assoc,CECI Yoo disease Hospitalists W19.xxxA Unspecified fall, initial encounter R79.89 Other specified abnormal findings of blood chemistry E11.9 Type 2 diabetes mellitus without complications I10 Essential (primary) hypertension G89.4 Chronic pain syndrome F32.9 Major depressive disorder, single episode, unspecified Assessments Date Code Description Provider 05/09/2019 G20 Parkinson's disease Kayden Cosme M.D. 05/09/2019 R41.3 Other amnesia Kayden Cosme M.D. 05/09/2019 R26.81 Unsteadiness on feet Kayden Cosme M.D. 05/06/2019 S91.302A Unspecified open wound, left foot, Tia Hoffman DNP , RN, initial encounter [employer]- 05/06/2019 E11.621 Type 2 diabetes mellitus with foot Tia Hoffman DNP, RN, ulcer [employer]- 05/02/2019 S91.302A Unspecified open wound, left foot, Tia Hoffman DNP , RN, initial encounter [employer]-BC 05/02/2019 E11.621 Type 2 diabetes mellitus with foot Tia Hoffman DNP RN, ulcer [facility]- 05/02/2019 I70.245 Atherosclerosis of [place] arteries Tia Hoffman DNP RN, of left leg with ulceration of other [facility]- part of foot 05/02/2019 E46 Unspecified protein-calorie Tia Hoffman DNP RN, malnutrition [employer]-BC 05/02/2019 L03.116 Cellulitis of left lower limb Tia Hoffman DNP, RN, [facility]-BC 03/23/2019 J18.9 Pneumonia, unspecified organism CECI Luong 03/23/2019 A41.9 Sepsis, unspecified organism CECI Luong 03/23/2019 E87.2 Acidosis CECI Luong 03/23/2019 G20 Parkinson's disease CECI Luong 03/23/2019 E11.9 Type 2 diabetes mellitus without CECI Luong complications 03/23/2019 I10 Essential (primary) hypertension CECI Luong 03/23/2019 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 03/22/2019 J18.9 Pneumonia, unspecified organism Storm Rowland.O. 03/22/2019 R79.89 Other specified abnormal findings of Nay Peña D.O. blood chemistry 03/22/2019 E11.9 Type 2 diabetes mellitus without Storm Rowland.Flaca. complications 03/22/2019 I10 Essential (primary) hypertension Storm Rowland.O. 03/22/2019 G20 Parkinson's disease Storm Rowland.O. 03/22/2019 G89.29 Other chronic pain Storm Rowland.O. 03/21/2019 A41.9 Sepsis, unspecified organism CECI Pichardo 03/21/2019 E87.2 Acidosis CECI Pichardo 03/21/2019 G20 Parkinson's disease CECI Pichardo 03/21/2019 E11.40 Type 2 diabetes mellitus with CECI Pichardo diabetic neuropathy, unspecified 03/21/2019 I10 Essential (primary) hypertension CECI Pichardo 03/21/2019 M10.9 Gout, unspecified Paxton Cabrera PA 03/21/2019 I65.29 Occlusion and stenosis of CECI Pichardo unspecified carotid artery 03/21/2019 N18.9 Chronic kidney disease, unspecified CECI Pichardo 01/13/2019 A41.89 Other specified sepsis Sara Tavarez MD 01/13/2019 J10.1 Influenza due to other identified Sara Tavarez MD influenza virus with other respiratory manifestations 01/13/2019 I10 Essential (primary) hypertension Sara Tavarez MD 01/13/2019 G89.29 Other chronic pain Sara Tavarez MD 01/12/2019 J10.1 Influenza due to other identified Sara Tavarez MD influenza virus with other respiratory manifestations 01/12/2019 G89.29 Other chronic pain Sara Tavarez MD 01/11/2019 A41.89 Other specified sepsis Samia Rodriguez NP 01/11/2019 J10.1 Influenza due to other identified Samia Rodriguez NP influenza virus with other respiratory manifestations 01/05/2019 R55 Syncope and collapse Alfonso Nolasco M.D. 01/05/2019 I65.29 Occlusion and stenosis of Alfonso Nolasco M.D. unspecified carotid artery 01/05/2019 I65.22 Occlusion and stenosis of left Alfonso Nolasco M.D. carotid artery 11/17/2018 R55 Syncope and collapse Artur Chapa M.D., [facility] 11/17/2018 R55 Syncope and collapse Shauna Thayer'rosy, PA-C 11/17/2018 R79.89 Other specified abnormal findings of Shauna Thayer'rosy, PA-C blood chemistry 11/17/2018 G20 Parkinson's disease Shauna O'rosy, PA-C 11/17/2018 I10 Essential (primary) hypertension Shauna O'rosy, PA-C 11/17/2018 E78.5 Hyperlipidemia, unspecified Shauna O'rosy, PA-C 11/17/2018 I65.29 Occlusion and stenosis of Shauna O'rosy, PA-C unspecified carotid artery 11/17/2018 E11.9 Type 2 diabetes mellitus without Shauna O'rosy, PA-C complications 11/17/2018 M14.672 Charcot's joint, left ankle and foot Shauna O'rosy, PA- C 11/17/2018 N20.0 Calculus of kidney Shauna Thayer'rosy, PA-C 11/17/2018 K58.9 Irritable bowel syndrome without Shauna O'rosy, PA-C diarrhea 11/16/2018 R94.31 Abnormal electrocardiogram [ECG] Alfonso Nolasco M.D. [EKG] 11/16/2018 I21.4 Non-St elevation (Nstemi) myocardial Shauna Thayer'rosy, PA-C infarction 11/16/2018 W19.xxxA Unspecified fall, initial encounter Shauna Thayer'rosy, PA- C 11/16/2018 D72.829 Elevated white blood cell count, Shauna Flaca'rosy, PA-C unspecified 11/16/2018 E11.69 Type 2 diabetes mellitus with other Shauna O'rosy, PA-C specified complication 11/16/2018 E66.9 Obesity, unspecified Shauna O'rosy, PA-C 11/16/2018 F32.9 Major depressive disorder, single Shauna Cruz PA-C episode, unspecified 11/16/2018 G20 Parkinson's disease Shauna Cruz PA-C 11/15/2018 G20 Parkinson's disease CECI Luong 11/15/2018 W19.xxxA Unspecified fall, initial encounter CECI Luong 11/15/2018 R79.89 Other specified abnormal findings of CECI Luong blood chemistry 11/15/2018 E11.9 Type 2 diabetes mellitus without CCEI Luong complications 11/15/2018 I10 Essential (primary) hypertension CECI Luong 11/15/2018 G89.4 Chronic pain syndrome CECI Luong 11/15/2018 F32.9 Major depressive disorder, single CECI Luong episode, unspecified Plan of Treatment Future Appointment(s):09/23/2019 2:45 pm - Kayden Cosme M.D. at [facility]05/09/2019 - Kayden Cosme M.D.G20 Parkinson's diseaseFollow up:Follow up in 4 efulnmI08.3 Other llknmlwR44.81 Unsteadiness on feet Functional Status Description No Information Available Mental Status Description No Information Available Referrals Description No Information Available
--- OUTSIDE RECORDS SUMMARY | 2019-06-01 12:47 | XMS REPORT | Continuity of Care Document ---
:1945 External Reference #:[id number] Author Name Kasey Hensley NP Address [address] [place] [address] Care Team Providers Name Role Phone Gema Cabral M.D. - Family Medicine Care Team Information Systems Security Consultant Unavailable Kayden Cosme MD - Neurology Care Team Information Systems Security Consultant Alfonso Nolasco MD - Cardiovascular Care Team Information Systems Security Consultant [phone] Disease Problems Active Problems Provider Date Parkinson's disease [...] myocardial Gema Cabral M.D. 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 Onset: 04/11/2019 Social History Type Date Description Comments Sex Unknown Tobacco Use Start: Unknown End: Former Cigarette Smoker 2 Packs Daily Tobacco Use Start: Unknown End: Patient is a former smoker Unknown Smoking Status Reviewed: 03/28/19 Patient is a former smoker Exercise Limitations Back Pain Exercise Limitations Joint Pain Allergies, Adverse Reactions, Alerts Description No Known Drug Allergies Medications Active Medications SIG Qnty Indications Ordering Date Provider Cephalexin 1 by mouth four 40tabs L03.116 Tracie Clinton, 04/22/2019 500mg times a day for 10d [employer] Tablets Morphine Sulfate ER 1 by mouth three 90tabs Kasey COseas 04/01/2019 times per day LUPE Hensley 15mg Tablets ER Lisinopril Take 1 Tablet By 30tabs Iker FOseas 03/23/2018 10mg Mouth Every Day Logan Nguyen Tablets Exelon daily 30units Kasey Zelaya 10/15/2017 9.5mg/24HR LUPE Hensley Patches 24HR Clonazepam take one tablet by 90tabs G47.00 Kasey Zelaya 10/15/2017 0.5mg mouth at bedtime as LUPE Hensley Tablets needed for sleep code c Amantadine HCL take one by mouth 180caps G20 [facility], 10/15/2017 100mg twice daily, at 9am M.D. Capsules and 11pm Rivastigmine one patch 30units [address], 10/15/2017 Transdermal System transdermal daily M.D. 9.5mg/24HR Patches 24HR Oxycodone-Acetaminop take one by mouth 4 60tabs G89.4 Kasey Zelaya 10/15/2017 hen times daily as LUPE Hensley 10-325mg Tablets needed for breakthrough pain Magnesium Oxide 1 by mouth every Unknown day 400(241.3mg) mg Tablets Lactulose take bid Unknown 10GM/15ML Solution Aspirin Adult Low 1 by mouth every Unknown Dose day 81mg Tablets DR Folic Acid 1 by mouth every Unknown 1mg day Tablets Labetalol HCL 1/2 pill by mouth 180tabs [facility], 200mg twice a day M.D. Tablets Pravachol 1 by mouth every Unknown 40mg day Tablets Acetaminophen 2 tabs by mouth Unknown 500mg three times a day Tablets as needed Multi-Vitamin once daily otc Unknown Tablets Omeprazole 1 by mouth every Unknown 20mg day Capsules Meloxicam once daily Unknown 7.5mg Tablets Gabapentin take 1 tablet by Unknown 600mg mouth four times a Tablets day Nasacort Allergy spray 2 sprays in Unknown 24HR each nostril at 55mcg/Act bedtime Aerosol Duloxetine HCL 1 by mouth every Unknown 30mg day Caps DR Mynor Wylie 1 by mouth twice a 180tabs Gema [place], 250mg day M.D. Tablets Calcium + D3 1 by mouth twice a Unknown day 250mg-Unit Tablets Vitamin D3 1 by mouth every Unknown 2000Unit day Capsules Allopurinol 1 by mouth every Unknown 200mg day Tablets History Medications Morphine Sulfate 1 by mouth three Kasey Hensley NP 04/01/2019 - 15mg times a day 04/01/2019 Tablets ER Immunizations Description No Information Available Vital Signs Date Vital Result Comment 04/28/2019 10:03am BP Systolic 158 mmHg BP Diastolic 70 mmHg Heart Rate 76 /min Body Temperature 98.2 F Respiratory Rate 18 /min Weight 200.00 lb 04/25/2019 10:25am BP Systolic 114 mmHg BP Diastolic 60 mmHg Heart Rate 66 /min Body Temperature 97.3 F Results Test Acquired Date Facility Test Result H/L Range Note Laboratory test 04/11/2019 [facility]) Magnesium, 2.4 mEq/L High 1.2-2.1 finding Serum Comprehensive 04/11/2019 [facility]) Sodium 146 mEq/L 134-149 Metabolic Prof Potassium 4.9 mEq/L 3.6-5.5 Chloride 102 mEq/L 94-112 Carbon Dioxide 24 mEq/L 21-32 Glucose 123 mg/dL High 70-105 BUN 15 mg/dL 6-26 Creatinine 1.2 mg/dL 0.6-1.4 BUN/Creat Ratio 12.5 CALC 8.0-36.0 Calcium 9.8 mg/dL 8.6-10.2 Total Protein 6.9 g/dL 6.4-8.3 Albumin 4.5 g/dL 3.8-5.5 Globulin 2.4 g/dL 2.0-4.8 A/G Ratio 1.9 CALC 0.6-2.3 Alk. Phosphatase 75 U/L 22-95 Alt (SGPT) 18 U/L 7-35 Ast (Sgot) 23 U/L 5-34 Total Bilirubin 0.5 mg/dL 0.2-1.3 GFR Non- >60 ml/min/1.73m^ >=60 GFR >60 ml/min/1.73m^ >=60 CBC Electronic (a New) 04/11/2019 [facility] WBC 6.27 4.0-10.0 (607)- - RBC 4.51 3.93-6.0 Hemoglobin (Fma/CMC/CTX) 12.2 g/dL 12.0-17.0 Hematocrit (a/CMC/CTX) 38.4 % 35.0-50.0 Mean Corpuscular Vol 85.1 fL 80-95 Mean Corpuscular Hemoglobin 27.1 pg 25.6-32.2 Mean Corpuscular Hemo Concen 31.8 g/dL Low 32.2-36.0 Platelets 168 10^3/ul 163-400 RDW-CV 14.7 High 11.6-14.4 Mean Platelet Volume 9.9 fL 8.0-12.4 Absolute Neutrophils BLD 2.27 1.56-6.13 Absolute Lymphocytes 2.90 1.18-3.74 Absolute Monocytes BLD Auto 0.62 0.24-0.82 Absolute Eos Blood 0.43 0.04-0.54 Absolute Basophils 0.04 0.01-0.08 Neutrophil % 36.1 % 34.0-70.0 Lymph% 46.3 % 20.0-52.0 Monocytes % 9.9 % 5.0-12.0 Eos % 6.9 % 0.7-7.0 Basophil% 0.6 % 0-1.2 Laboratory test 03/28/2019 [facility] Hemoglobin A1c (a) 5.6 % 4.1-5.7 finding (607)- - Glucose Serum 78 70-105 Influenza A & B Request 03/21/2019 [facility] Flu AB Disclaimer (SEE NOTE) 1 Influenza A Molecular NEGATIVE Negative Influenza B Molecular NEGATIVE Negative 2 Urinalysis Profile 03/21/2019 [facility] Urine Color Yellow Urine Appearance Clear Urine Specific [place] 1.020 Normal 1.010-1.030 Urine pH 6.0 Normal 5-9 Urine Urobilinogen Negative Negative Urine Ketones Trace Abnormal Negative Urine Protein Negative Negative Urine Leukocytes Trace Abnormal Negative Urine Blood Negative Negative * * Abnormal Negative 3 Urine Nitrite Negative Negative Urine Bilirubin Negative Negative Urine Glucose Negative Negative Urine White Blood Cell 1+(6-10/hpf) Abnormal Absent Urine Red Blood Cell Trace(0-2/hpf) Absent Urine Bacteria Absent Absent Urine Squamous Epithelial Cell Present Abnormal Absent CBC Auto Diff 03/21/2019 [facility] White Blood Count 19.8 10^3/uL High 3.5- 10.8 Red Blood Count 4.58 10^6/uL Normal 4.18-5.48 Hemoglobin 12.7 g/dL Low 14.0-18.0 Hematocrit 38 % Low 42-52 Mean Corpuscular Volume 83 fL Normal 80-94 Mean Corpuscular Hemoglobin 28 pg Normal 27-31 Mean Corpuscular HGB Conc 34 g/dL Normal 31-36 Red Cell Distribution Width 16 % High 10-15 Platelet Count 166 10^3/uL Normal 150-450 Mean Platelet Volume 8.0 fL Normal 7.4-10.4 Abs Neutrophils 16.0 10^3/uL High 1.5-7.7 Abs Lymphocytes 2.5 10^3/uL Normal 1.0-4.8 Abs Monocytes 1.3 10^3/uL High 0-0.8 Abs Eosinophils 0.0 10^3/uL Normal 0-0.6 Abs Basophils 0.1 10^3/uL Normal 0-0.2 Abs Nucleated RBC 0.0 10^3/uL Granulocyte % 80.6 % Lymphocyte % 12.4 % Monocyte % 6.7 % Eosinophil % 0.0 % Basophil % 0.3 % Nucleated Red Blood Cells % 0.1 Laboratory test finding 03/21/2019 [facility] Lactic Acid 4.0 mmol/L Critical high 0.5-2.0 4 Comp Metabolic Panel 03/21/2019 [facility] Sodium 137 mmol/L Normal 135-145 Potassium 4.7 mmol/L Normal 3.5-5.0 Chloride 103 mmol/L Normal 101-111 Co2 Carbon Dioxide 25 mmol/L Normal 22-32 Anion Gap 9 mmol/L Normal 2-11 Calcium 9.3 mg/dL Normal 8.6-10.3 Albumin 4.2 g/dL Normal 3.2-5.2 Total Bilirubin 0.60 mg/dL Normal 0.2-1.0 Glucose 132 mg/dL High 70-100 Blood Urea Nitrogen 21 mg/dL Normal 6-24 Creatinine 1.36 mg/dL High 0.67-1.17 BUN/Creatinine Ratio 15.4 Normal 8-20 Total Protein 6.7 g/dL Normal 6.4-8.9 Globulin 2.5 g/dL Normal 2-4 Albumin/Globulin Ratio 1.7 Normal 1-3 Alkaline Phosphatase 62 U/L Normal 34-104 Alt 19 U/L Normal 7-52 Ast 26 U/L Normal 13-39 Egfr Non- 51.7 >60 Egfr 62.5 >60 5 Laboratory test finding 03/21/2019 [facility] C Reactive Protein 62.96 mg/L High <8.01 Troponin-I (TnI) 0.04 ng/mL Critical high <0.03 6 Urine Culture 03/21/2019 [facility] Urine Culture SEE RESULT 7 And BELOW Sensitivities Laboratory test 03/21/2019 [facility] Blood Culture SEE RESULT 8 finding BELOW Laboratory test 02/17/2019 [facility] Hemoglobin A1c 5.6% % 4.1- 5.7 finding (607)- - (Fma) Drug Screen 02/14/2019 [facility] Urine Presumptive Abnormal None 9 Urine Pain Hydrocodone Posi <SEE Detect Clinic Screen NOTE> Urine Oxycodone Screen None Detected None Detect Urine Fentanyl Screen Presumptive Posi <SEE NOTE> Abnormal None Detect 10 Urine Methadone Screen None Detected None Detect Urine Buprenorphine Screen None Detected None Detect Urine Amphetamine Screen None Detected None Detect Urine Barbiturates Screen None Detected None Detect Urine Benzodiazepine Screen None Detected None Detect Urine Cannabinoids Screen None Detected None Detect Urine Cocaine Screen None Detected None Detect Urine Opiates Screen Presumptive Posi <SEE NOTE> Abnormal None Detect 11 Urine Phencyclidine Screen None Detected None Detect 12 Laboratory test finding 01/11/2019 [facility] Erythrocyte Sed Rate 10 mm/Hr Normal 0-19 Blood Culture SEE RESULT BELOW 13 Manual Differential 01/11/2019 [facility] Immature Granulocytes 8.0 % Normal 0- 9 Neutrophil % 70.0 % Band % 8.0 % Normal 0-8 Lymphocytes % 6.0 % Monocytes % 11.0 % Eosinophils % 1.0 % Variant Lymph % 4.0 % Normal 0-6 RBC Morphology Normal Normal Anisocytosis 1+ Abs Neutrophils 7.9 10^3/uL High 1.5-7.7 Abs Lymphocytes 1.0 10^3/uL Normal 1.0-4.8 Abs Monocytes 1.1 10^3/uL High 0-0.8 Abs Eosinophils 0.1 10^3/uL Normal 0-0.6 Abs Basophils 0.0 10^3/uL Normal 0-0.2 CBC Auto Diff 01/11/2019 [facility] Red Blood Count 4.93 10^6/uL Normal 4.18- 5.48 Hemoglobin 13.5 g/dL Low 14.0-18.0 Hematocrit 41 % Low 42-52 Mean Corpuscular Volume 82 fL Normal 80-94 Mean Corpuscular Hemoglobin 27 pg Normal 27-31 Mean Corpuscular HGB Conc 33 g/dL Normal 31-36 Red Cell Distribution Width 16 % High 10-15 White Blood Count 10.1 10^3/uL Normal 3.5-10.8 14 Platelet Count 156 10^3/uL Normal 150-450 15 Laboratory test finding 01/11/2019 [facility] Creatine Kinase(CK) 38 U/L Normal 10-223 C Reactive Protein 6.30 mg/L Normal <8.01 Troponin I 0.01 ng/mL <0.04 16 Lactic Acid 2.8 mmol/L Critical high 0.5-2.0 17 Rapid Influenza A&B Molecular POSITIVE Abnormal Negative 18 Comp Metabolic Panel 01/11/2019 [facility] Sodium 138 mmol/L Normal 135-145 Potassium 5.0 mmol/L Normal 3.5-5.0 Chloride 103 mmol/L Normal 101-111 Co2 Carbon Dioxide 24 mmol/L Normal 22-32 Anion Gap 11 mmol/L Normal 2-11 Glucose 164 mg/dL High 70-100 Blood Urea Nitrogen 19 mg/dL Normal 6-24 Creatinine 1.16 mg/dL Normal 0.67-1.17 BUN/Creatinine Ratio 16.4 Normal 8-20 Calcium 9.3 mg/dL Normal 8.6-10.3 Total Protein 6.7 g/dL Normal 6.4-8.9 Albumin 4.3 g/dL Normal 3.2-5.2 Globulin 2.4 g/dL Normal 2-4 Albumin/Globulin Ratio 1.8 Normal 1-3 Total Bilirubin 0.60 mg/dL Normal 0.2-1.0 Alkaline Phosphatase 66 U/L Normal 34-104 Alt 20 U/L Normal 7-52 Ast 24 U/L Normal 13-39 Egfr Non- 62.1 >60 Egfr 75.1 >60 19 Laboratory test 01/11/2019 [facility] Partial Thrombo 32.7 seconds Normal 26.0- 38.0 finding Time PTT Inr/Protime 01/11/2019 [facility] Inr 1.03 Normal 0.82-1.09 20 Urinalysis Profile 01/11/2019 [facility] Urine Color Yellow Urine Appearance Clear Urine Specific [place] 1.010 Normal 1.010-1.030 Urine pH 8.0 Normal 5-9 Urine Urobilinogen Negative Negative Urine Ketones Trace Abnormal Negative Urine Protein Negative Negative Urine Leukocytes Negative Negative Urine Blood Negative Negative Urine Nitrite Negative Negative Urine Bilirubin Negative Negative Urine Glucose Negative Negative Laboratory test 01/11/2019 [facility] B-Type 73 pg/mL <=100 finding Natriuretic Peptide BNP Laboratory test 01/11/2019 [facility] Lactic Acid 1.1 mmol/L Normal 0.5-2.0 21 finding Drug Abuse 20 12/15/2018 [facility] Urine Amphetamine Presumptive Posi Abnormal 22 Urine <SEE NOTE> ng/mL Urine Barbiturates Negative ng/mL 23 Urine Benzodiazepines Negative ng/mL 24 Urine Cocaine Negative ng/mL 25 Urine Phencyclidine Negative ng/mL Cutoff: 25 Urine Tetrahydrocannabinol Negative ng/mL Cutoff: 50 26 Creatinine, Urine 176.1 mg/dL Specific [place] 1.014 pH 5.7 Oxidants Negative 27 Adulterants Comment Normal Codeine, Ur Not Detected ng/mL Cutoff: 25 28 Byfkums-8-styu-glucuronide, Ur Not Detected ng/mL 29 Morphine, Ur Present ng/mL Abnormal Cutoff: 25 30 Nbwtgcxo-7-zzgv-glucuronide, U Present ng/mL Abnormal 31 6-monoacetylmorphine, Ur Not Detected ng/mL Cutoff: 25 32 Hydrocodone, Ur Not Detected ng/mL Cutoff: 25 33 Norhydrocodone, Ur Not Detected ng/mL Cutoff: 25 34 Dihydrocodeine, Ur Not Detected ng/mL Cutoff: 25 35 Hydromorphone, Ur Present ng/mL Abnormal Cutoff: 25 36 Yqhktlzliohll5shjbzkjuzxtcoyf Present ng/mL Abnormal 37 Oxycodone, Ur Present ng/mL Abnormal Cutoff: 25 38 Noroxycodone, Ur Present ng/mL Abnormal Cutoff: 25 39 Oxymorphone, Ur Not Detected ng/mL Cutoff: 25 40 Fewtrofptig-0-uzcj-glucuronide Not Detected ng/mL 41 Noroxymorphone, Ur Not Detected ng/mL Cutoff: 25 42 Fentanyl, Ur Not Detected ng/mL Cutoff: 2 43 Norfentanyl, Ur Not Detected ng/mL Cutoff: 2 44 Meperidine, Ur Not Detected ng/mL Cutoff: 25 45 Normeperidine, Ur Not Detected ng/mL Cutoff: 25 46 Naloxone, Ur Not Detected ng/mL Cutoff: 25 47 Qsvpncyo-1-iwqi-glucuronide, U Not Detected ng/mL 48 Methadone, Ur Not Detected ng/mL Cutoff: 25 49 Eddp, Ur Not Detected ng/mL Cutoff: 25 50 Propoxyphene, Ur Not Detected ng/mL Cutoff: 25 51 Norpropoxyphene, Ur Not Detected ng/mL Cutoff: 25 52 Tramadol, Ur Not Detected ng/mL Cutoff: 25 53 O-desmethyltramadol, Ur Not Detected ng/mL Cutoff: 25 54 Tapentadol, Ur Not Detected ng/mL Cutoff: 25 55 N-desmethyltapentadol, Ur Not Detected ng/mL Cutoff: 50 56 Cpcxpwjvat-swye-hhgvbxusmzb, U Not Detected ng/mL 57 Buprenorphine, Ur Not Detected ng/mL Cutoff: 5 58 Norbuprenorphine, Ur Not Detected ng/mL Cutoff: 5 59 Norbuprenorphine glucuronide Not Detected ng/mL Cutoff: 20 60 Opioid Interpretation See Comment 61 Urine Amphetamine 12/15/2018 [facility] Urine Amphetamine See Comment Cutoff: 25 62 Confirm by GC/MS ng/mL Urine Methamphetamine by GC/MS Negative ng/mL Cutoff: 25 Phentermine-by GC/MS Negative ng/mL Cutoff: 25 Pseudoephedrine/Ephedr GC/MS Negative ng/mL Cutoff: 25 Mda(Ecstacy metabolite) GC/MS Negative ng/mL Cutoff: 25 Mdma(Ecstacy)-by GC/MS Negative ng/mL Cutoff: 25 Urine Amphetamines Interp See Comment 63 Laboratory test 11/15/2018 [facility] Troponin I 0.18 ng/mL Critical high <0.04 64 finding CBC Auto Diff 11/15/2018 [facility] White Blood 13.2 10^3/uL High 3.5-10.8 Count Red Blood Count 4.98 10^6/uL Normal 4.18-5.48 [...] Cells % 0.0 Laboratory test finding 11/15/2018 [facility] Troponin I 0.18 ng/mL Critical high <0.04 65 Comp Metabolic Panel 11/15/2018 [facility] Sodium 137 mmol/L Normal 135-145 Potassium 4.5 [...] Egfr Non- 53.5 >60 Egfr 64.7 >60 66 Laboratory test finding 11/15/2018 [facility] Lipase 23 U/L Normal 11.0-82.0 TSH (Thyroid Stim Horm) 0.90 mcIU/mL Normal 0.34-5.60 Urinalysis Profile 11/15/2018 [facility] Urine Color Yellow Urine Appearance Clear Urine Specific [place] 1.015 Normal 1.010-1.030 Urine pH 6.0 Normal 5-9 Urine Urobilinogen Positive Abnormal Negative Urine Ketones 1+ Abnormal Negative Urine Protein 1+(30 mg/dL) Abnormal Negative Urine Leukocytes Negative Negative Urine Blood Negative Negative * * Abnormal Negative 67 Urine Nitrite Negative Negative Urine Bilirubin Negative Negative Urine Glucose Negative Negative Urine White Blood Cell Trace(0-5/hpf) Absent Urine Red Blood Cell Trace(0-2/hpf) Absent Urine Bacteria Absent Absent Urine Culture And Sensitivities 11/15/2018 [facility] Urine Culture SEE RESULT BELOW 68 1 Suboptimal collection technique may reduce sensitivity of test. Refer to the [facility] Test Catalog for collection information: [email or web address] As with all diagnostic procedures, the laboratory results obtained should be used in conjunction with other clinical information available to the physician, including confirmation by another method, as applicable. 2 Learning Support Resource Room Teacher: [id number] 3 *Ascorbic acid is present which may interfere with detection of blood. 4 Critical Result LACT:4.0 Called to [id number] at: 15:54:32 by:[id number] Read back by:LUISANA [facility] Severe Sepsis and Septic Shock Management Bundle Measure requires all lactic acids initially measuring >2.0 mmol/L be repeated. 5 Because ethnic data is not always readily [...] 15-29 5 Kidney failure <15 (or dialysis) 6 Result TnIDx:0.04 Called to [id number] at: 18:04:34 by:[id number] Read back by: [id number] Troponin-I testing on Plasma Separator Tubes (PST) has a known false positive rate of 0.20-0.40%. All positive troponins reflex immediately to secondary confirmatory testing. Using the [employer] DxI 800 Access Immunoassay systems, the 99th percentile upper reference limit was demonstrated to be < 0.03 ng/mL. 7 SEE RESULT BELOW Name: LANG MENA : [address]: Nay Peña DO Acct: [id number] Unit: [id number] AGE: 73 Location: ICU [id number] Re03/21/19 SEX: M Status: ADM Joseph SPEC: [id number] LILLI: 03/21/[address]: Dennis ORNELAS REQ: [id number] RECD: 03/21/19 STATUS: RODRIGO PATIÑO DR: Gema Cabral MD [facility] _ SOURCE: URINE SPDESC: ORDERED: Urine Culture Procedure Result Reported Site Urine Culture Final 03/22/19- 1413 ML No Growth (<1,000 CFU/mL) * ML - Main Lab . END OF REPORT DEPARTMENT OF PATHOLOGY, [address] [place] [address] Lang Nixon M.D. Director [facility] # [id number] 8 SEE RESULT BELOW Name: LANG MENA : [address]: Bonifacio Ellis MD Acct: [id number] Unit: [id number] AGE: 73 Location: [place] [address]- Re03/21/19 Dis: 03/23/19 SEX: M Status: DIS Joseph SPEC: [id number] LILLI: 03/21/19-[address] [facility] [address]: Dennis ORNELAS REQ: [id number] RECD: 03/21/19 STATUS: COMP [facility] DR: Gema Cabral MD [facility] _ SOURCE: BLOOD,VENO SPDESC: ORDERED: Blood Cult COMMENTS: Patient is On Antibiotics? NO Procedure Result Reported Site Aerobic Culture Bottle Final 03/26/19- 1531 ML No Growth Day 5 Anaerobic Culture Bottle Final 03/26/19- 1531 ML No Growth Day 5 * ML - Main Lab . END OF REPORT DEPARTMENT OF PATHOLOGY, [address] [place] [address] Lang Nixon M.D. Director [facility] # [id number] 9 Presumptive Positive Presumptive positive results are unconfirmed. 10 Presumptive Positive Presumptive positive results are unconfirmed. 11 Presumptive Positive Presumptive positive results are unconfirmed. 12 The specimen was tested at the listed cutoffs: Drug Class Test level (ng/mL) Hydrocodone 300 Oxycodone 100 Fentanyl 1 Methadone 150 Buprenorphine 5 Amphetamines 500 Barbiturates 200 Benzodiazepines 200 Cocaine 150 Cannabinoids 50 Opiates 300 PCP 25 Specimen was received without chain of custody. Results should be used for medical purposes only. 13 SEE RESULT BELOW Name: LANG MENA : [address]: Sara Tavarez MD Acct: [id number] Unit: [id number] AGE: 73 Location: [place] [address]- Re01/11/19 Dis: 01/13/19 SEX: M Status: DIS IN SPEC: [id number] LILLI: 01/11/[address] [facility] [address]: Ting Light MD REQ: [id number] RECD: 01/11/19 STATUS: RODRIGO PATIÑO DR: Gema Cabral MD _ SOURCE: BLOOD,VENO SPDESC: ORDERED: Blood Cult Procedure Result Reported Site Aerobic Culture Bottle Final 01/16/19- 1423 ML No Growth Day 5 Anaerobic Culture Bottle Final 01/16/19- 1421 ML No Growth Day 5 * ML - Main Lab . END OF REPORT DEPARTMENT OF PATHOLOGY, [address] [place] [address] Lang Nixon M.D. Director [facility] # [id number] 14 White count confirmed by estimate 15 Platelet count confirmed by estimate 16 Troponin-I testing on Plasma Separator Tubes (PST) has a known false positive rate of 0.20-0.40%. All positive troponins reflex immediately to secondary confirmatory testing. Using the [employer] DxI 800 Access Immunoassay systems, the 99th percentile upper reference limit was demonstrated to be < 0.03 ng/mL. 17 Critical Result LACT:2.8 Called to [email or web address] at: 14:42:48 by:[id number] Read back by:[email or web address] [facility] Severe Sepsis and Septic Shock Management Bundle Measure requires all lactic acids initially measuring >2.0 mmol/L be repeated. 18 Learning Support Resource Room Teacher: [id number] 19 Because ethnic data is not always readily [...] 15-29 5 Kidney failure <15 (or dialysis) 20 Standard intensity warfarin therapeutic range: 2.0-3.0 High intensity warfarin therapeutic range: 2.5-3.5 21 [facility] Severe Sepsis and Septic Shock Management Bundle Measure requires all lactic acids initially measuring >2.0 mmol/L be repeated. 22 Presumptive Positive Drug confirmation to follow. Presumptive Positive means that the screening method is positive, but the test needs to be run by a confirmatory method before being finalized. REFERENCE VALUE Cutoff: 500 23 REFERENCE VALUE Cutoff: 200 24 REFERENCE VALUE Cutoff: 100 25 REFERENCE VALUE Cutoff: 150 26 ADDITIONAL INFORMATION This report is intended for use in clinical monitoring or management of patients. It is not intended for use in employment-related testing. Test Performed by: [facility] [address] [place] [address] Landscaping Specialist: Paxton Tenorio M.D. Ph.D.; CLIA# [id number] 27 REFERENCE VALUE Cutoff: 200 mg/L 28 Tylenol 3 29 Metabolite of codeine REFERENCE VALUE Cutoff: 100 30 Janeth Lau, MS Contin; Also a minor metabolite (10%) of codeine and can be seen in low concentrations (<2,000 ng/mL) with poppy seed ingestion. 31 Metabolite of morphine REFERENCE VALUE Cutoff: 100 32 Metabolite of heroin 33 Lortab, [place], Vicodin; Also a very minor metabolite of codeine and impurity (<1%) of oxycodone. 34 Metabolite of hydrocodone 35 Metabolite of hydrocodone 36 Dilaudid, Exalgo; Also a metabolite of hydrocodone and a minor (<5%) metabolite of morphine. 37 Metabolite of hydromorphone REFERENCE VALUE Cutoff: 100 38 Endocet, Percocet, Oxycontin 39 Metabolite of oxycodone 40 Numorphan, Opana; Also a metabolite of oxycodone. 41 Metabolite of oxymorphone REFERENCE VALUE Cutoff: 100 42 Metabolite of oxymorphone 43 Actiq, Duragesic, [place] 44 Metabolite of fentanyl 45 Demerol 46 Metabolite of meperidine 47 Narcan 48 Metabolite of naloxone REFERENCE VALUE Cutoff: 100 49 Dolophine 50 Metabolite of methadone 51 Darvon, Darvocet 52 Metabolite of propoxyphene 53 Tradol, Ultram, Ultracet 54 Metabolite of tramadol 55 Nucynta 56 Metabolite of tapentadol 57 Metabolite of tapentadol REFERENCE VALUE Cutoff: 100 58 Buprenex, Suboxone 59 Metabolite of buprenorphine 60 Metabolite of buprenorphine 61 Test detected the presence of both morphine and its metabolite (fztjrsqu-6-bjjn-glucuronide). Suspect use of morphine within the past three days. Alternatively, these results could also be suggestive of heroin use. Low levels of morphine can also be seen following poppy seed ingestion. Test detected the presence of hydromorphone and one of its metabolites (cipeonemaetrh-1-qujk-glucuronide). Suspect use of hydromorphone within the past three days. Test detected the presence of oxycodone and one of its metabolites (noroxycodone). Suspect use of oxycodone within the past three days. ADDITIONAL INFORMATION This test was developed and its performance characteristics determined by [facility] in a manner consistent with CLIA requirements. This test has not been cleared or approved by the U.S. Food and Drug Administration. 62 Unknown interfering substance present; unable to obtain results. 63 Chromatographic interference prevents accurate identification. ADDITIONAL INFORMATION This report is intended for use in clinical monitoring and management of patients. It is not intended for use in employment-related testing. This test was developed and its performance characteristics determined by [facility] in a manner consistent with CLIA requirements. This test has not been cleared or approved by the U.S. Food and Drug Administration. Test Performed by: [facility] [address] [place] [address] Landscaping Specialist: Paxton Tenorio M.D. Ph.D.; CLIA# [id number] 64 Result TnIDx:0.18 Called to [id number] at: 14:20:08 by:[id number] Read back by: [id number] Troponin-I testing on Plasma Separator Tubes (PST) has a known false positive rate of 0.20-0.40%. All positive troponins reflex immediately to secondary confirmatory testing. Using the [employer] DxI 800 Access Immunoassay systems, the 99th percentile upper reference limit was demonstrated to be < 0.03 ng/mL. 65 Result TnIDx:0.18 Called to [id number] at: 11:14:46 by:[id number] Read back by: [id number] Troponin-I testing on Plasma Separator Tubes (PST) has a known false positive rate of 0.20-0.40%. All positive troponins reflex immediately to secondary confirmatory testing. Using the [employer] DxI 800 Access Immunoassay systems, the 99th percentile upper reference limit was demonstrated to be < 0.03 ng/mL. 66 Because ethnic data is not always readily [...] 15-29 5 Kidney failure <15 (or dialysis) 67 *Ascorbic acid is present which may interfere with detection of blood. 68 SEE RESULT BELOW Name: LANG MENA : [address]: Chon Guy MD Acct: [id number] Unit: [id number] AGE: 73 Location: [place] [address] Re11/15/18 SEX: M Status: ADM Joseph SPEC: [id number] LILLI: 11/15/18-[address] [facility] [address]: Charles Gagnon MD REQ: [id number] RECD: 11/15/18 STATUS: RODRIGO PATIÑO DR: Gema Cabral MD _ SOURCE: URINE SPDESC: ORDERED: Urine Culture Procedure Result Reported Site Urine Culture Final 11/16/18- 1253 ML No Growth (<1,000 CFU/mL) * ML - Main Lab . END OF REPORT DEPARTMENT OF PATHOLOGY, [address] [place] [address] Lang Nixon M.D. 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 Office Visit 04/11/2019 5:00p Main Office Gema Cabral, M14.672 Charcot' s [place] angel left ankle and foot K83.01 Primary sclerosing cholangitis E61.2 Magnesium deficiency E11.40 Type 2 diabetes mellitus with diabetic neuropathy, unsp G20 Parkinson's disease Office Visit 03/28/2019 1:30p [facility] Joyce Hassan J15.9 Unspecified CECI Calix bacterial pneumonia E08.42 Diabetes due to underlying condition w diabetic polyneurop E61.2 Magnesium deficiency Office Visit 03/16/2019 11:30a Main Office Kasey Zelaya M14.672 Charesvin's Ayden angel NP left ankle and foot M54.5 Low back pain G47.00 Insomnia, unspecified Office Visit 02/17/2019 10:30a Main Office Kasey Hensley, 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 G20 Parkinson's disease G89.4 Chronic pain syndrome E08.42 Diabetes due to underlying condition w diabetic polyneurop E78.5 Hyperlipidemia, unspecified Office Visit 11/22/2018 2:20p Main Office Gema Cabral, I10 Essential ( primary) M.DOseas hypertension R55 Syncope and collapse G20 Parkinson's disease G89.4 Chronic pain syndrome Assessments Date Code Description Provider 04/28/2019 L03.116 Cellulitis of left lower limb Kasey Hensley NP 04/28/2019 L84 Corns and callosities Kasey Hensley NP 04/28/2019 M14.672 Charcot's joint, left ankle and foot Kasey Hensley, LUPE 04/28/2019 E08.621 Diabetes mellitus due to underlying Kasey Hensley NP condition with foot ulcer 04/25/2019 L03.116 Cellulitis of left lower limb Lucretia Delgado, Afnp-C 04/25/2019 L84 Corns and callosities [facility] [place], Afnp-C 04/22/2019 L03.116 Cellulitis of left lower limb Tracie Alonzo, SANDING MACHINE BUFFER 04/11/2019 M14.672 Charcot's joint, left ankle and foot Gema Cabral M.D. 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 04/11/2019 E61.2 Magnesium deficiency Gema Cabral M.D. 04/11/2019 E11.40 Type 2 diabetes mellitus with diabetic Gema Cabral M.D. neuropathy, unspecified 04/11/2019 G20 Parkinson's disease Gema Cabral M.D. 03/28/2019 J15.9 Unspecified bacterial pneumonia CECI Guevara 03/28/2019 E08.42 Diabetes mellitus due to underlying CECI Guevara condition with diabetic 03/28/2019 E61.2 Magnesium deficiency CECI Guveara 03/16/2019 M14.672 Charcot's joint, left ankle and foot Kasey Hensley, LUPE 03/16/2019 M54.5 Low back pain Kasey Hensley NP 03/16/2019 G47.00 Insomnia, unspecified Kasey Hensley NP 02/17/2019 I10 Essential (primary) hypertension Kasey Hensley NP 02/17/2019 G20 Parkinson's disease Kasey Hensley NP 02/17/2019 G89.4 Chronic pain syndrome Kasey Hensley NP 02/17/2019 E08.42 Diabetes mellitus due to underlying Kasey Hensley NP condition with diabetic 02/17/2019 E78.5 Hyperlipidemia, unspecified Kasey Hensley NP 11/22/2018 I10 Essential (primary) hypertension Gema Cabral M.D. 11/22/2018 R55 Syncope and collapse Gema Cabral M.D. 11/22/2018 G20 Parkinson's disease Gema Cabral M.D. 11/22/2018 G89.4 Chronic pain syndrome Gema Cabral M.D. Plan of Treatment Future Appointment(s):06/22/2019 1:00 pm - Gema Cabral M.D. at [facility] Cylubk4204/28/2019 - Kasey Garcia Hensley, NPL03.116 Cellulitis of left lower limbComments:Infection appears to be resolving appropriately, but I am concerned about the wound healing.L84 Corns and kaiwufoujuqF43.672 Charcot's joint, left ankle and footE08.621 Diabetes mellitus due to underlying condition with foot ulcerComments:Due to location of wound and underlying conditions, it will likely be very difficult to heal this wound adequately. Please follow up with the wound clinic so we can minimize the chances of getting a bony infection or chronic problem.AllComments:1. Patient has been queried about patient's goals/preferences and functional/lifestyle goals at relevant visits. If relevant, describe: Has been discussed, noted above2. Treatment goals as explainedto the patient: see above3. Are there barriers to meeting treatment goals? Yes If Yes, please describe: Barriers include possible insurance limits, disease process, and difficulty with lifestyle changes4. Self- Management goals as described to the patient: Yes, see above As always, we strongly encourage a healthy diet and making physical activity a part of your every day life. If you have questions about how or where to start, please contact the office. Functional Status Description No Information Available Mental Status Description No Information Available Referrals Refer to Reason for Referral Status Appt Date [facility] EXTREMELY URGENT REFERRAL PLEASE SCHEDULE DARIANA Created Open Non-healing wound left foot jw [address]nd Floor AT [address] [address] [phone] Alfonso Nolasco MD consult and treat Scheduled 01/05/2019 [facility] [place] [address] [phone]
--- OUTSIDE RECORDS SUMMARY | 2019-06-01 12:47 | XMS REPORT | Continuity of Care Document ---
:1945 External Reference #:[id number] Author Name Ezekiel Mars Address [address] [place] [address] Care Team Providers Name Role Phone Gema Cabral M.D. 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 Onset: 01/27/2018 Iron deficiency Geam Cabral M.D. Onset: 01/27/2018 Spinal stenosis Gema [...] 1 by mouth four 40tabs L03.116 Tracie Alonzo, 04/22/2019 500mg times a day for 10d [employer]ENT Tablets Morphine Sulfate ER 1 by mouth [...] HCL take one by mouth 180caps G20 [facility], 10/15/2017 100mg twice daily, at 9am M.D. Capsules and 11pm Rivastigmine one patch 30units G20 [facility], 10/15/2017 Transdermal System transdermal daily M.D. 9.5mg/24HR [...] Labetalol HCL 1/2 pill by mouth 180tabs [facility], 200mg twice a day M.D. Tablets Pravachol [...] 1 by mouth twice a 180tabs [place]ema [place], 250mg day M.D. Tablets Calcium + D3 [...] Available Vital Signs Date Vital Result Comment 04/25/2019 10:25am BP Systolic 114 mmHg BP Diastolic 60 mmHg Heart Rate 66 /min Body Temperature 97.3 F 04/22/2019 10:17am BP Systolic 100 mmHg BP Diastolic 46 mmHg Heart Rate 84 /min Body Temperature 97.0 F Respiratory Rate 17 /min Results Test Acquired Date Facility Test Result [...] ml/min/1.73m^ >=60 CBC Electronic (a New) 04/11/2019 [facility] WBC 6.27 4.0-10.0 (607)- - RBC 4.51 [...] Basophil% 0.6 % 0-1.2 Laboratory test 03/28/2019 [facility] Hemoglobin A1c (a) 5.6 % 4.1-5.7 finding (607)- - Glucose Serum 78 70-105 Influenza A & B Request 03/21/2019 [facility] Flu AB Disclaimer (SEE NOTE) 1 Influenza A Molecular NEGATIVE Negative Influenza B Molecular NEGATIVE Negative 2 Urinalysis Profile 03/21/2019 [facility] Urine Color Yellow Urine Appearance Clear Urine Specific [place] 1.020 Normal 1.010-1.030 Urine pH 6.0 Normal [...] Present Abnormal Absent CBC Auto Diff 03/21/2019 [facility] White Blood Count 19.8 10^3/uL High 3.5- [...] Cells % 0.1 Laboratory test finding 03/21/2019 [facility] Lactic Acid 4.0 mmol/L Critical high 0.5-2.0 4 Comp Metabolic Panel 03/21/2019 [facility] Sodium 137 mmol/L Normal 135-145 Potassium 4.7 [...] 62.5 >60 5 Laboratory test finding 03/21/2019 [facility] C Reactive Protein 62.96 mg/L High <8.01 Troponin-I (TnI) 0.04 ng/mL Critical high <0.03 6 Urine Culture 03/21/2019 [facility] Urine Culture SEE RESULT 7 And BELOW Sensitivities Laboratory test 03/21/2019 [facility] Blood Culture SEE RESULT 8 finding BELOW Laboratory test 02/17/2019 [facility] Hemoglobin A1c 5.6% % 4.1- 5.7 finding (607)- - (Fma) Drug Screen 02/14/2019 [facility] Urine Presumptive Abnormal None 9 Urine Pain [...] None Detect 12 Laboratory test finding 01/11/2019 [facility] Erythrocyte Sed Rate 10 mm/Hr Normal 0-19 Blood Culture SEE RESULT BELOW 13 Manual Differential 01/11/2019 [facility] Immature Granulocytes 8.0 % Normal 0- 9 [...] 10^3/uL Normal 0-0.2 CBC Auto Diff 01/11/2019 [facility] Red Blood Count 4.93 10^6/uL Normal 4.18- [...] Normal 150-450 15 Laboratory test finding 01/11/2019 [facility] Creatine Kinase(CK) 38 U/L Normal 10-223 C Reactive Protein 6.30 mg/L Normal <8.01 Troponin I 0.01 ng/mL <0.04 16 Lactic Acid 2.8 mmol/L Critical high 0.5-2.0 17 Rapid Influenza A&B Molecular POSITIVE Abnormal Negative 18 Comp Metabolic Panel 01/11/2019 [facility] Sodium 138 mmol/L Normal 135-145 Potassium 5.0 [...] Egfr 75.1 >60 19 Laboratory test 01/11/2019 [facility] Partial Thrombo 32.7 seconds Normal 26.0- 38.0 finding Time PTT Inr/Protime 01/11/2019 [facility] Inr 1.03 Normal 0.82-1.09 20 Urinalysis Profile 01/11/2019 [facility] Urine Color Yellow Urine Appearance Clear Urine Specific [place] 1.010 Normal 1.010-1.030 Urine pH 8.0 Normal 5-9 Urine Urobilinogen Negative Negative Urine Ketones Trace Abnormal Negative Urine Protein Negative Negative Urine Leukocytes Negative Negative Urine Blood Negative Negative Urine Nitrite Negative Negative Urine Bilirubin Negative Negative Urine Glucose Negative Negative Laboratory test 01/11/2019 [facility] B-Type 73 pg/mL <=100 finding Natriuretic Peptide BNP Laboratory test 01/11/2019 [facility] Lactic Acid 1.1 mmol/L Normal 0.5-2.0 21 finding Drug Abuse 20 12/15/2018 [facility] Urine Amphetamine Presumptive Posi Abnormal 22 Urine <SEE NOTE> ng/mL Urine Barbiturates Negative ng/mL 23 Urine Benzodiazepines Negative ng/mL 24 Urine Cocaine Negative ng/mL 25 Urine Phencyclidine Negative ng/mL Cutoff: 25 Urine Tetrahydrocannabinol Negative ng/mL Cutoff: 50 26 Creatinine, Urine 176.1 mg/dL Specific [place] 1.014 pH 5.7 Oxidants Negative 27 Adulterants Comment Normal Codeine, Ur Not Detected ng/mL Cutoff: 25 28 Ewuyvkk-5-xijn-glucuronide, Ur Not Detected ng/mL 29 Morphine, Ur Present ng/mL Abnormal Cutoff: 25 30 Arzbulpo-5-cedc-glucuronide, U Present ng/mL Abnormal 31 6-monoacetylmorphine, Ur Not Detected ng/mL Cutoff: 25 32 Hydrocodone, Ur Not Detected ng/mL Cutoff: 25 33 Norhydrocodone, Ur Not Detected ng/mL Cutoff: 25 34 Dihydrocodeine, Ur Not Detected ng/mL Cutoff: 25 35 Hydromorphone, Ur Present ng/mL Abnormal Cutoff: 25 36 Gxqzfgkajkbkr5yzsdakhkcdumwoz Present ng/mL Abnormal 37 Oxycodone, Ur Present ng/mL Abnormal Cutoff: 25 38 Noroxycodone, Ur Present ng/mL Abnormal Cutoff: 25 39 Oxymorphone, Ur Not Detected ng/mL Cutoff: 25 40 Tdparctzttb-4-cblr-glucuronide Not Detected ng/mL 41 Noroxymorphone, Ur Not Detected ng/mL Cutoff: 25 42 Fentanyl, Ur Not Detected ng/mL Cutoff: 2 43 Norfentanyl, Ur Not Detected ng/mL Cutoff: 2 44 Meperidine, Ur Not Detected ng/mL Cutoff: 25 45 Normeperidine, Ur Not Detected ng/mL Cutoff: 25 46 Naloxone, Ur Not Detected ng/mL Cutoff: 25 47 Mgroarfj-5-eqgu-glucuronide, U Not Detected ng/mL 48 Methadone, Ur [...] Ur Not Detected ng/mL Cutoff: 50 56 Xenaegtqll-zfik-adzekkdkokn, U Not Detected ng/mL 57 Buprenorphine, Ur Not Detected ng/mL Cutoff: 5 58 Norbuprenorphine, Ur Not Detected ng/mL Cutoff: 5 59 Norbuprenorphine glucuronide Not Detected ng/mL Cutoff: 20 60 Opioid Interpretation See Comment 61 Urine Amphetamine 12/15/2018 [facility] Urine Amphetamine See Comment Cutoff: 25 62 Confirm by GC/MS ng/mL Urine Methamphetamine by GC/MS Negative ng/mL Cutoff: 25 Phentermine-by GC/MS Negative ng/mL Cutoff: 25 Pseudoephedrine/Ephedr GC/MS Negative ng/mL Cutoff: 25 Mda(Ecstacy metabolite) GC/MS Negative ng/mL Cutoff: 25 Mdma(Ecstacy)-by GC/MS Negative ng/mL Cutoff: 25 Urine Amphetamines Interp See Comment 63 Laboratory test 11/15/2018 [facility] Troponin I 0.18 ng/mL Critical high <0.04 64 finding CBC Auto Diff 11/15/2018 [facility] White Blood 13.2 10^3/uL High 3.5-10.8 Count [...] Cells % 0.0 Laboratory test finding 11/15/2018 [facility] Troponin I 0.18 ng/mL Critical high <0.04 [...] 0.90 mcIU/mL Normal 0.34-5.60 Urinalysis Profile 11/15/2018 [facility] Urine Color Yellow Urine Appearance Clear Urine Specific [place] 1.015 Normal 1.010-1.030 Urine pH 6.0 Normal [...] Absent Absent Urine Culture And Sensitivities 11/15/2018 [facility] Urine Culture SEE RESULT BELOW 68 1 Suboptimal collection technique may reduce sensitivity of test. Refer to the [facility] Test Catalog for collection information: [email or web address] As with all diagnostic procedures, the laboratory results obtained should be used in conjunction with other clinical information available to the physician, including confirmation by another method, as applicable. 2 Television Receiver Analyzer: [id number] 3 *Ascorbic acid is present which may interfere with detection of blood. 4 Critical Result LACT:4.0 Called to [employer] at: 15:54:32 by:[id number] Read back by:[id number] [place] Severe Sepsis and Septic Shock Management Bundle [...] (or dialysis) 6 Result TnIDx:0.04 Called to [employer] at: 18:04:34 by:[id number] Read back by: [id number] Troponin-I testing on Plasma Separator Tubes (PST) has a known false positive rate of 0.20-0.40%. All positive troponins reflex immediately to secondary confirmatory testing. Using the [employer] DxI 800 Access Immunoassay systems, the 99th percentile upper reference limit was demonstrated to be < 0.03 ng/mL. 7 SEE RESULT BELOW Name: LANG MENA : [address]: Nay Peña DO Acct: [id number] Unit: [id number] AGE: 73 Location: ICU [id number] Re03/21/19 SEX: M Status: ADM Joseph SPEC: [id number] LILLI: 03/21/[address]: Dennis ORNELAS REQ: [id number] RECD: 03/21/19 STATUS: RODRIGO PATIÑO DR: Gema Cabral MD [facility] _ SOURCE: URINE SPDESC: ORDERED: Urine Culture Procedure Result Reported Site Urine Culture Final 03/22/19- 1413 ML No Growth (<1,000 CFU/mL) * ML - Main Lab . END OF REPORT DEPARTMENT OF PATHOLOGY, [address] [place] [address] Lang Nixon M.D. Director [facility] # [id number] 8 SEE RESULT BELOW Name: LANG MENA : [address]: Bonifacio Ellis MD Acct: [id number] Unit: [id number] AGE: 73 Location: [place] [address]- Re03/21/19 Dis: 03/23/19 SEX: M Status: DIS Joseph SPEC: [id number] LILLI: 03/21/[address] [facility] [address]: Dennis ORNELAS REQ: [id number] RECD: 03/21/19 STATUS: COMP [facility] DR: Gema Cabral MD [facility] _ SOURCE: BLOOD,VENO SPDESC: ORDERED: Blood Cult COMMENTS: Patient is On Antibiotics? NO Procedure Result Reported Site Aerobic Culture Bottle Final 03/26/19- 1531 ML No Growth Day 5 Anaerobic Culture Bottle Final 03/26/19- 1531 ML No Growth Day 5 * ML - Main Lab . END OF REPORT DEPARTMENT OF PATHOLOGY, [address] [place] [address] Lang Nixon M.D. Director [facility] # [id number] 9 Presumptive Positive Presumptive positive results are [...] [address]: Sara Tavarez MD Acct: [id number] Unit: [id number] AGE: 73 Location: [place] [address]- Re01/11/19 Dis: 01/13/19 SEX: M Status: DIS IN SPEC: [id number] LILLI: 01/11/[address] [facility] [address]: Ting Light MD REQ: [id number] RECD: 01/11/19 STATUS: RODRIGO PATIÑO DR: Gema Cabral MD _ SOURCE: BLOOD,VENO SPDESC: ORDERED: Blood Cult Procedure Result Reported Site Aerobic Culture Bottle Final 01/16/19- 1423 ML No Growth Day 5 Anaerobic Culture Bottle Final 01/16/19- 1421 ML No Growth Day 5 * ML - Main Lab . END OF REPORT DEPARTMENT OF PATHOLOGY, [address] [place] [address] Lang Nixon M.D. Director [facility] # [id number] 14 White count confirmed by estimate 15 Platelet count confirmed by estimate 16 Troponin-I testing on Plasma Separator Tubes (PST) has a known false positive rate of 0.20-0.40%. All positive troponins reflex immediately to secondary confirmatory testing. Using the [employer] DxI 800 Access Immunoassay systems, the 99th percentile upper reference limit was demonstrated to be < 0.03 ng/mL. 17 Critical Result LACT:2.8 Called to [email or web address] at: 14:42:48 by:[id number] Read back by:[email or web address] [facility] Severe Sepsis and Septic Shock Management Bundle Measure requires all lactic acids initially measuring >2.0 mmol/L be repeated. 18 Television Receiver Analyzer: [id number] 19 Because ethnic data is not always [...] High intensity warfarin therapeutic range: 2.5-3.5 21 [facility] Severe Sepsis and Septic Shock Management [...] use in employment-related testing. Test Performed by: [facility] - [facility] [address] [place] [address] Size Cutter: Paxton Tenorio M.D. Ph.D.; GONZÁLEZIA# [id number] 27 REFERENCE VALUE Cutoff: 200 mg/L 28 Tylenol 3 29 Metabolite of codeine REFERENCE VALUE Cutoff: 100 30 Janeth Lau, MS Contin; Also a minor metabolite (10%) of codeine and can be seen in low concentrations (<2,000 ng/mL) with poppy seed ingestion. 31 Metabolite of morphine REFERENCE VALUE Cutoff: 100 32 Metabolite of heroin 33 Lortab, Burley, Vicodin; Also a very minor metabolite of [...] presence of both morphine and its metabolite (vbegyqmx-7-bvzo-glucuronide). Suspect use of morphine within the past three days. Alternatively, these results could also be suggestive of heroin use. Low levels of morphine can also be seen following poppy seed ingestion. Test detected the presence of hydromorphone and one of its metabolites (kqmxzyxbzbuyk-9-oyll-glucuronide). Suspect use of hydromorphone within the past three days. Test detected the presence of oxycodone and one of its metabolites (noroxycodone). Suspect use of oxycodone within the past three days. ADDITIONAL INFORMATION This test was developed and its performance characteristics determined by [facility] in a manner consistent with CLIA requirements. [...] developed and its performance characteristics determined by [facility] in a manner consistent with CLIA requirements. This test has not been cleared or approved by the U.S. Food and Drug Administration. Test Performed by: [facility] [place] [address] [place] [address] Size Cutter: Paxton Tenorio M.D. Ph.D.; CLIA# [id number] 64 Result TnIDx:0.18 Called to [id number] at: 14:20:08 by:[id number] Read back by: [id number] Troponin-I testing on Plasma Separator Tubes (PST) has a known false positive rate of 0.20-0.40%. All positive troponins reflex immediately to secondary confirmatory testing. Using the [employer] DxI 800 Access Immunoassay systems, the 99th percentile upper reference limit was demonstrated to be < 0.03 ng/mL. 65 Result TnIDx:0.18 Called to [id number] at: 11:14:46 by:[id number] Read back by: [id number] Troponin-I testing on Plasma Separator Tubes (PST) has a known false positive rate of 0.20-0.40%. All positive troponins reflex immediately to secondary confirmatory testing. Using the [employer] DxI 800 Access Immunoassay systems, the 99th [...] of blood. 68 SEE RESULT BELOW Name: TRINALANG : [address]: Chon Guy MD Acct: [id number] Unit: [id number] AGE: 73 Location: [place] [address] Re11/15/18 SEX: M Status: ADM Joseph SPEC: [id number] LILLI: 11/15/18-[address] [facility] [address]: Charles Gagnon MD REQ: [id number] RECD: 11/15/18 STATUS: RODRIGO PATIÑO DR: Gema Cabral MD _ SOURCE: URINE SPDESC: ORDERED: Urine Culture Procedure Result Reported Site Urine Culture Final 11/16/18- 1253 ML No Growth (<1,000 CFU/mL) * ML - Main Lab . END OF REPORT DEPARTMENT OF PATHOLOGY, [address] [place] [address] Lang Nixon M.D. Director [facility] # [id number] Procedures Date Code Description Status 03/28/2019 07580 Pulse Oximetry Completed 03/28/2019 94072 Finger Or Heel Stick Completed 02/17/2019 04952 Finger Or Heel Stick Completed 04/06/2016 77633389 Colonoscopy Completed Medical Devices Description No Information Available Encounters Type Date Location Provider Dx Diagnosis Office Visit 04/22/2019 Main Office TYLER Mcdowell L03.116 Cellulitis of left 10:00a lower limb Office Visit 04/11/2019 Main Office Gema Cabral M.D. 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 2 diabetes mellitus with diabetic neuropathy, unsp G20 Parkinson's disease Office Visit 03/28/2019 1:30p [facility] Joyce Hasasn J15.9 Unspecified CECI Calix bacterial pneumonia E08.42 Diabetes due to underlying condition w diabetic polyneurop E61.2 Magnesium deficiency Office Visit 03/16/2019 11:30a Main Office Kasey Zelaya M14.672 Charcot's joint, LUPE Hensley left ankle and foot M54.5 Low back pain G47.00 Insomnia, unspecified Office Visit 02/17/2019 10:30a Main Office Kasey Hensley, 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 G20 Parkinson's disease G89.4 Chronic pain syndrome E08.42 Diabetes due to underlying condition w diabetic polyneurop E78.5 Hyperlipidemia, unspecified Office Visit 11/22/2018 2:20p Main Office Gema Cabral, I10 Essential ( primary) M.DOseas hypertension R55 Syncope and collapse G20 Parkinson's disease G89.4 Chronic pain syndrome Assessments Date Code Description Provider 04/25/2019 L03.116 Cellulitis of left lower limb Chaka Mars-Sonya 04/25/2019 L84 Corns and callosities Chaka Mars-C 04/22/2019 L03.116 Cellulitis of left lower limb TYLER Mcdowell 04/11/2019 M14.672 Charcot's joint, left ankle and [...] with diabetic 03/28/2019 E61.2 Magnesium deficiency CECI Guevara 03/16/2019 M14.672 Charcot's joint, left ankle and foot Kasey Hensley, LUPE 03/16/2019 M54.5 Low back pain Kasey Hensley, LUPE 03/16/2019 G47.00 Insomnia, unspecified Kasey Hensley NP 02/17/2019 I10 Essential (primary) hypertension Kasey Hensley NP 02/17/2019 G20 Parkinson's disease Kasey Hensley NP 02/17/2019 G89.4 Chronic pain syndrome Kasey Hensley, LUPE 02/17/2019 E08.42 Diabetes mellitus due to underlying Kasey Hensley NP condition with diabetic 02/17/2019 E78.5 Hyperlipidemia, unspecified Kasey Hensley NP 11/22/2018 I10 Essential (primary) hypertension Gema Cabral M.D. 11/22/2018 R55 Syncope and collapse Gema Cabral M.D. 11/22/2018 G20 Parkinson's disease Gema Cabral M.D. 11/22/2018 G89.4 Chronic pain syndrome Gema Cabral M.D. Plan of Treatment Future Appointment(s):04/28/2019 10:00 am - Kasey Hensley NP at [facility] [id number]/22/2019 1:00 pm - Gema Cabral M.D. at [facility] [id number]/25/2019 - Chaka Mars-CL03.116 Cellulitis of left lower limbFollow up:Followup: . (Follow up)L84 Corns and callositiesAllComments:Medication Management Patient Understands medications he's taking? Yes No Are there Barriersto Adherence? Yes No Has the patient been asked about herbal supplements and therapies, and OTC meds? Yes No Care Plan1. Patient has been queried about patient's goals/preferences and functional/lifestyle goals\ at relevant visits. If relevant, describe: na2. Treatment goals as explained to the patient: abovecontinued rx and healing od foot 3. Are there barriers to meeting treatment goals? Yes No If Yes, please describe:4. Self- Management goals as described to thepatient: Yes No continue present rx -- leave foot open to air for awhile each day i will debride some of the skin f/u weeks end if you do not get a podiatry appt sooner f/u sooner if sx worsen i think it is good to check your feet regularly but try to avoid further picking and allow podiatryto care for the callouses or to teach you to do so Functional Status Description No Information Available Mental Status Description No Information Available Referrals Refer to Reason for Referral Status Appt Alfonso Nolasco MD consult and treat Scheduled 01/05/[address] [place] [address] [phone]
--- OUTSIDE RECORDS SUMMARY | 2019-06-01 12:47 | XMS REPORT | Summary of Care ---
:1945 Author Organization [facility] Address [address] [place] [address] Care Team Providers Name Role Phone Gema Cabral MD Primary Care Provider Reason for Visit Reason Comments Follow-up Encounter Details Date Type Department Care Team Description 05/20/2019 Office Visit [facility] Polina Sheikh, Bilateral carotid artery stenosis (Primary Dx); Associates MD NAFISA PAD (peripheral artery disease) Department of Surgery, [address] [place] [address] Division of Vascular Room [address] [place], [place] [facility] [id number] [address] [phone] [place] [address] (Fax) [phone] Allergies Active Allergy Reactions Severity Noted Date Comments Niacin Other (See Comments) 02/20/2005 Other reaction(s): FACE FLUSHED, FEELING OF WARMTH Nsaids Other (See Comments) 10/29/2018 unknown Carbidopa W-Levodopa 12/31/2017 Sitagliptin 09/29/2007 Other reaction(s): CONSTIPATION, GI Intolerance documented as of this encounter (statuses as of 05/20/2019) Medications Medication Sig Dispensed Refills Start Date End Date Status ALLOPURINOL PO Take 200 mg 0 Active by mouth amantadine Take 100 mg 0 Active (SYMMETREL) 100 MG by mouth Two capsule Times Daily aspirin 81 MG EC Take 81 mg 0 Active tablet by mouth daily Cholecalciferol Take by 0 Active (VITAMIN D3) 2000 mouth units TABS Calcium Take by 0 Active Citrate-Vitamin D3 mouth 315-250 MG-UNIT TABS clonazePAM Take 0.5 mg 0 Active (KLONOPIN) 0.5 MG by mouth Two tablet times daily as needed for Anxiety divalproex Take 250 mg 0 Active (DEPAKOTE) 250 MG EC by mouth tablet Three times daily DULoxetine Take 30 mg 0 Active (CYMBALTA) 30 MG by mouth capsule daily gabapentin Take 600 mg 0 Active (NEURONTIN) 600 MG by mouth tablet Three times daily lisinopril Take 10 mg 0 Active (PRINIVIL,ZESTRIL) by mouth 10 MG tablet daily meloxicam (MOBIC) Take 7.5 mg 0 Active 7.5 MG tablet by mouth daily morphine sulfate ER Take 15 mg 0 Active (MS CONTIN) 15 MG 12 by mouth Two hr tablet Times Daily omeprazole Take 20 mg 0 Active (PRILOSEC) 20 MG by mouth capsule daily rivastigmine Place 1 0 Active (EXELON) 9.5 MG/24HR patch onto the skin daily Multiple Vitamin Take 1 0 Active (MULTIVITAMIN) tablet by tablet mouth daily acetaminophen Take 500 mg 0 Active (TYLENOL) 500 MG by mouth tablet every 6 (six) hours as needed for Pain pravastatin Take 40 mg 0 Active (PRAVACHOL) 40 MG by mouth tablet daily labetalol Take 100 mg 0 Active (NORMODYNE) 100 MG by mouth Two tablet Times Daily folic acid (FOLVITE) Take 1 mg by 0 Active 1 MG tablet mouth daily lactulose Take 20 g by 0 Active (CHRONULAC) 10 mouth Three GM/15ML solution times daily oxycodone-acetaminop Take 1 0 Active hen (PERCOCET) tablet by 10-325 MG per tablet mouth every 4 (four) hours as needed for Pain metformin Take 1,000 0 Active (GLUCOPHAGE) 1000 MG mg by mouth tablet Two times daily with meals Ascorbic Acid Take by 0 Active (VITAMIN C PO) mouth Magnesium Oxide 400 Take 1 0 03/23/2019 Active (241.3 Mg) MG Oral tablet by Tablet (MAG-OX) mouth Two Times Daily Oseltamivir 0 01/13/2019 Active Phosphate 75 MG Oral Capsule (TAMIFLU) Lactobacillus Take by 0 Discontinued Rhamnosus, GG, mouth 0 (Therapy (CULTURELLE PO) completed) documented as of this encounter (statuses as of 05/20/2019) Active Problems Problem Noted Date Carotid stenosis 04/22/2018 PAD (peripheral artery disease) 04/22/2018 Carotid stenosis documented as of this encounter (statuses as of 05/20/2019) Social History Tobacco Use Types Packs/Day Years Used Date Former Smoker Cigarettes 2 50 Quit: 10/20/2017 Smokeless Tobacco: Never Used Alcohol Use Drinks/Week oz/Week Comments Not Currently Sex Assigned at Date Recorded Not on file Job Start Date Occupation Industry Not on file Not on file Not on file Travel History Travel Start Travel End No recent travel history available. documented as of this encounter Last Filed Vital Signs Vital Sign Reading Time Taken Comments Blood Pressure 134/77 05/20/2019 10:26 AM EST Pulse 64 05/20/2019 10:26 AM EST Temperature 36.6 05/20/2019 10:26 AM EST C (97.9 F) Respiratory Rate 20 05/20/2019 10:26 AM EST Oxygen Saturation 98% 05/20/2019 10:26 AM EST Inhaled Oxygen Concentration - - Weight 88.5 kg (195 lb) 05/20/2019 10:26 AM EST Height 180.3 cm (5' 11") 05/20/2019 10:26 AM EST Body Mass Index 27.2 05/20/2019 10:26 AM EST documented in this encounter Progress Notes Polina Sheikh MD - 05/20/2019 10:30 AM EST Subjective: Patient ID: Lang Chapa is a 73 y.o. male with Parkinson's Disease, Charcot Foot Deformity, DM, Neuropathy, Hyperlipidemia, HTN and history of Carotid Artery Stenosis who was noted to have a severe stenosis of his left Carotid artery. He is here for evaluation. He had some dizziness and low BP so was seeing his PCP. She had reduced his BP meds because he was having orthostatic changes. He has had Carotid stenosis in the past but it was not severe so his PCP sent him for a follow up study. No amaurosis, no lateralizing neurologic changes such as paralysis or weakness. He has had bilateral leg weakness for some time. He thinks this is related to his Parkinson's disease. He did see Dr. Cosme (Neurology) for f/u and is stable. He had Physical Therapy to help with leg weakness- August. He had Lithotripsy in Jun 01 for kidney stone and still has more present. No new complaints. He is on a baby ASA and Pravachol. Recent HgbA1C was 6.9 so his Metformin was put back to BID. He doesn't walk enough to claudicate. He had a CTA of the Neck to assess his Carotid Stenosis last year. He dd have the Flu last Jan. An admission in Mar for PNA and more recently, a wound left plantar foot developed after a fall in April and right 1st metatarsal wound (callus). He is seeing the [facility] for this. His last Left CARMELA/ TBI was in October, PT 0.76; DP 0.83, digit 0.73. He follows up today. He had f/u Carotid Duplex US recently. Chief Complaint: SAMEER Croft has a past medical history of Carotid stenosis, Cervicalgia, Cervicalgia , Cyst of pancreas, Depression, Diabetes, Dizziness and giddiness, GERD ( gastroesophageal reflux disease), Gout, Hyperlipidemia, Hypertension, Osteoarthritis (arthritis due to wear and tear of joints), and Parkinsons. Lang has Carotid stenosis; PAD (peripheral artery disease); and Carotid stenosis on their problem list. Lang has a past surgical history that includes Cataract extraction; Laser of prostate w/ green light pvp (2014); Lumbar laminectomy; Nasal septum surgery; and Gallbladder surgery. His family history includes Dementia in his father and maternal grandfather; Parkinsonism in his father; Thyroid cancer in his mother. Lang reports that he quit smoking about 18 months ago. His smoking use included cigarettes. He has a 100.00 pack-year smoking history. He has never used smokeless tobacco. He reports previous alcohol use. He reports that he does not use drugs. Lang has a current medication list which includes the following prescription(s ): acetaminophen, allopurinol, amantadine, ascorbic acid, aspirin, calcium citrate-vitamin d3, vitamin d3, clonazepam, divalproex, duloxetine, folic acid, gabapentin, labetalol, lactulose, lisinopril, magnesium oxide, meloxicam, morphine sulfate er, multivitamin, omeprazole, oseltamivir, oxycodone- acetaminophen, pravastatin, rivastigmine, and metformin. Current Outpatient Medications on File Prior to Visit Medication Sig Dispense Refill acetaminophen (TYLENOL) 500 MG tablet Take 500 mg by mouth every 6 (six) hours as needed forPain ALLOPURINOL PO Take 200 mg by mouth amantadine (SYMMETREL) 100 MG capsule Take 100 mg by mouth Two Times Daily Ascorbic Acid (VITAMIN C PO) Take by mouth aspirin 81 MG EC tablet Take 81 mg by mouth daily Calcium Citrate-Vitamin D3 315-250 MG-UNIT TABS Take by mouth Cholecalciferol (VITAMIN D3) 2000 units TABS Take by mouth clonazePAM (KLONOPIN) 0.5 MG tablet Take 0.5 mg by mouth Two times daily as needed for Anxiety divalproex (DEPAKOTE) 250 MG EC tablet Take 250 mg by mouth Three times daily DULoxetine (CYMBALTA) 30 MG capsule Take 30 mg by mouth daily folic acid (FOLVITE) 1 MG tablet Take 1 mg by mouth daily gabapentin (NEURONTIN) 600 MG tablet Take 600 mg by mouth Three times daily labetalol (NORMODYNE) 100 MG tablet Take 100 mg by mouth Two Times Daily lactulose (CHRONULAC) 10 GM/15ML solution Take 20 g by mouth Three times daily lisinopril (PRINIVIL,ZESTRIL) 10 MG tablet Take 10 mg by mouth daily Magnesium Oxide 400 (241.3 Mg) MG Oral Tablet (MAG-OX) Take 1 tablet by mouth Two Times Daily meloxicam (MOBIC) 7.5 MG tablet Take 7.5 mg by mouth daily morphine sulfate ER (MS CONTIN) 15 MG 12 hr tablet Take 15 mg by mouth Two Times Daily Multiple Vitamin (MULTIVITAMIN) tablet Take 1 tablet by mouth daily omeprazole (PRILOSEC) 20 MG capsule Take 20 mg by mouth daily Oseltamivir Phosphate 75 MG Oral Capsule (TAMIFLU) oxycodone-acetaminophen (PERCOCET) 10-325 MG per tablet Take 1 tablet by mouth every 4 (four)hours as needed for Pain pravastatin (PRAVACHOL) 40 MG tablet Take 40 mg by mouth daily rivastigmine (EXELON) 9.5 MG/24HR Place 1 patch onto the skin daily metformin (GLUCOPHAGE) 1000 MG tablet Take 1,000 mg by mouth Two times daily with meals [DISCONTINUED] Lactobacillus Rhamnosus, GG, (CULTURELLE PO) Take by mouth No current facility-administered medications on file prior to visit. Lang is allergic to niacin; nsaids; sinemet [carbidopa w-levodopa]; and sitagliptin. Review of Systems Objective: Physical Exam Constitutional: He appears well-developed and well-nourished. HENT: Head: Normocephalic and atraumatic. Eyes: Pupils are equal, round, and reactive to light. Neck: Normal range of motion. No bruits Cardiovascular: Normal rate. Pulmonary/Chest: Effort normal. Musculoskeletal: Normal range of motion. Neurological: He is alert. Skin: Skin is warm. Nursing note and vitals reviewed. femoral pulses palpable Right popliteal palpable Right DP, PT biphasic, peroneal monophasic Left DP, peroneal monophasic; PT biphasic Lab Review: 05/18/19 Carotid Duplex US [facility] Right ICA < 50% Right vertebral antegrade flow Left PSV ICA 265 cm/sec; ICA/CCA Ratio 4.25; >80% stenosis Left vertebral artery demonstrates antegrade flow CTA Neck 11/09/18 Left ICA 60% stenosis at origin Right ICA 50% stenosis at origin Assessment: 1. Bilateral carotid artery stenosis 2. PAD (peripheral artery disease) Plan: His Carotid Disease is moderate and asymptomatic. The Duplex had over-read the stenosis. He should follow up with his PCP and [facility] soon. It sounds like he had syncope and may need further work up of his heart. I'll order a Carotid Duplex US in 6 months and see him back. We can try to monitor the trend of thevelocities relative to the CTA and recent duplex US. documented in this encounter Plan of Treatment Date Type Specialty Care Team Description 06/24/2019 Office Visit Vascular Surgery Polina Sheikh MD [facility] [place] [address] [phone] Health Maintenance Due Date Last Done Comments Hepatitis C Screening (B. 1945 [id number]) Colon Cancer Screening 10 yrs 07/17/1997 Pneumococcal Vaccine: 65+ 07/17/2012 Years (1 of 2 - PCV13) DTaP,Tdap,and Td Vaccines (3 12/25/2013 06/24/2013, - Tdap) 06/24/2013, 07/26/2003 MMR Vaccines (1 of 1 - 08/17/2014 Standard series) Varicella Vaccines (1 of 2 - 08/17/2014 07/20/2014 2-dose childhood series) Zoster Vaccines (2 of 3) 09/14/2014 07/20/2014 Influenza Vaccine 01/04/2019 HIB Vaccines Aged Out No longer eligible based on patient's age to complete this topic Hepatitis A Vaccines Aged Out No longer eligible based on patient's age to complete this topic Hepatitis B Vaccines Aged Out No longer eligible based on patient's age to complete this topic IPV Vaccines Aged Out No longer eligible based on patient's age to complete this topic Pneumococcal Vaccine: Aged Out No longer eligible based Pediatrics (0 to 5 Years) and on patient's age to At-Risk Patients (6 to 64 complete this topic Years) documented as of this encounter Results Not on filedocumented in this encounter Visit Diagnoses Diagnosis Bilateral carotid artery stenosis - Primary Occlusion and stenosis of multiple and bilateral precerebral arteries without mention of cerebral infarction PAD (peripheral artery disease) Peripheral vascular disease, unspecified documented in this encounter
[2019-06-01 13:05] LABS: Influenza A Molecular Negative (Negative); Influenza B Molecular Negative (Negative)
[2019-06-01 13:07] LABS: ABS Eosinophils 0.1 10^3/ul (0-0.6); ABS Lymphocytes 2.5 10^3/ul (1.0-4.8); Eosinophil % 0.7 %; Hematocrit 35 % (42-52); Hemoglobin 11.5 g/dL (14.0-18.0); Lymphocyte % 18.4 %; Mean Corpuscular HGB Conc 33 g/dL (31-36); Mean Corpuscular Hemoglobin 27 pg (27-31); Mean Corpuscular Volume 83 fL (80-94); Mean Platelet Volume 7.8 fL (7.4-10.4); Platelet Count 161 10^3/uL (150-450); Red Blood Count 4.26 10^6 /uL (4.18-5.48); Red Cell Distribution Width 15 % (10-15); White Blood Count 13.7 10^3/uL (3.5-10.8)
[2019-06-01 13:28] LABS: ALT 29 U/L (7-52); AST 41 U/L (13-39); Albumin 3.7 g/dL (3.2-5.2); Albumin/Globulin Ratio 1.5 (1-3); Alkaline Phosphatase 67 U/L (34-104); Anion Gap 9 mmol/L (2-11); BUN/Creatinine Ratio 17.8 (8-20); Blood Urea Nitrogen 30 mg/dL (6-24); CO2 Carbon Dioxide 25 mmol/L (22-32); Calcium 8.9 mg/dL (8.6-10.3); Chloride 102 mmol/L (101-111); EGFR African American 48.6 (>60); EGFR Non-African American 40.2 (>60); Globulin 2.5 g/dL (2-4); Glucose 156 mg/dL (70-100); Potassium 4.4 mmol/L (3.5-5.0); Sodium 136 mmol/L (135-145); Total Protein 6.2 g/dL (6.4-8.9)
[2019-06-01 13:34] LABS: Troponin I 0.03 ng/mL (<0.03)
[2019-06-01 14:14] LABS: Hepatitis C Antibody Negative (Negative)
[2019-06-01 15:04] LABS: BUN/Creatinine Ratio 19.1 (8-20); Calcium 8.5 mg/dL (8.6-10.3); EGFR Non-African American 43.8 (>60); Potassium 3.8 mmol/L (3.5-5.0)
[2019-06-01 15:06] LABS: Troponin I 0.02 ng/mL (<0.03)
[2019-06-01] MEDS ORDERED: Ondansetron INJ* 2 MG/ML VIAL IV PRN (16:04)
[2019-06-01] MEDS ORDERED: Acetaminophen TAB* 325 MG PO PRN (16:04)
[2019-06-01] MEDS ORDERED: oxyCODONE/Acetamin 5/325 MG* TAB PO PRN (16:07)
[2019-06-01] MEDS ORDERED: Lactulose* 15 ML UDC PO PRN (16:07)
[2019-06-01] MEDS ORDERED: clonazePAM TAB(*) 0.5 MG PO PRN (16:07)
[2019-06-01] MEDS ORDERED: Dextrose 50% Syringe 50 ML* 25 GM/50 ML SYRINGE IV PUSH PRN (16:11)
[2019-06-01] MEDS ORDERED: oxyCODONE TAB* 5 MG TAB PO PRN (16:22)
[2019-06-01 16:49] LABS: Urine Appearance Clear; Urine Bilirubin Negative (Negative); Urine Blood Negative (Negative); Urine Color Yellow; Urine Glucose Negative (Negative); Urine Ketones Trace (Negative); Urine Nitrite Negative (Negative); Urine Protein Negative (Negative); Urine Specific Gravity 1.016 (1.010-1.030); Urine Urobilinogen Negative (Negative)
[2019-06-01] MEDS ORDERED: Lactated Ringers 1000 ML Bag* 1,000 ML IV SCH (17:00)
[2019-06-01] MEDS ORDERED: Enoxaparin(*) 30 MG/0.3 ML SYR SUBCUT SCH (17:00)
[2019-06-01 17:17] LABS: C Reactive Protein 94.37 mg/L (<8.01)
[2019-06-01] MEDS ORDERED: Atorvastatin* 10 MG TAB PO SCH (18:00)
[2019-06-01] MEDS ORDERED: cefTRIAXone(*) 1 GM in NS 0.9% 50 ML* 50 ML IVPB ONE (18:30)
[2019-06-01] MEDS: Insulin LISPRO* 1 UNITS UNIT SUBCUT SCH ×2 (18:34→21:06)
[2019-06-01] MEDS ORDERED: cefTRIAXone(*) 1 GM in NS 0.9% 50 ML* 50 ML IVPB SCH (20:00)
[2019-06-01] MEDS: DOXYcycline IV* 100 MG in NS 0.9% 250 ML* 250 ML IVPB SCH (21:00)
[2019-06-01] MEDS: Magnesium Oxide TAB* 400 MG PO SCH (21:04)
[2019-06-01] MEDS: Gabapentin CAP(*) 300 MG PO SCH (21:04)
[2019-06-01] MEDS: Labetalol TAB* 100 MG PO SCH (21:04)
[2019-06-01] MEDS: Divalproex DR TAB(*) 250 MG PO SCH (21:05)
[2019-06-01] MEDS: Morphine TAB Extended Release (*) 15 MG TAB.ER PO SCH (21:06)
--- NOTE | 2019-06-01 21:11 | HP ---
CC: Dr. Gema Cabral * HISTORY AND PHYSICAL: DATE OF ADMISSION: 06/01/19 PRIMARY CARE PROVIDER: Dr. Gema Cabral. MY ATTENDING WHILE IN THE HOSPITAL: Dr. Mariano Cabral.* (DICTATED BY CECI LLAMAS) CHIEF COMPLAINT: Syncope. HISTORY OF PRESENT ILLNESS: Mr. Chapa is a 73-year-old male with past medical history significant for idiopathic Parkinson disease; diabetes mellitus type 2, complicated by diabetic neuropathy; Charcot joints; carotid artery stenosis, who presents to the emergency department after not feeling well for approximately 1 day and having increased volume and frequency of urine and some urinary incontinence, which he has had previously with other episodes, where he usually feels poorly, but then drinks lot of fluids and they go away. The patient, however, today was working with occupational therapy, standing up and down frequently and felt dizzy without any chest pain or palpitations and passed out. The patient was brought to the emergency department. In the emergency department, the patient was found to have creatinine below his baseline and slightly elevated troponin and low white blood cell count. Negative influenza A and B. The patient was given some IV fluids with slight improvement in his creatinine, but he was initially had orthostatic hypotension and on repeat, this was not improved. Due to the concern for syncope with orthostatic hypotension, we were asked to evaluate the patient for admission to the hospital. PAST MEDICAL HISTORY: Idiopathic Parkinson disease, diabetes mellitus type 2, hypertension, depression, gout, carotid artery stenosis, diabetic neuropathy, Charcot foot, nephrolithiasis, and irritable bowel syndrome. PAST SURGICAL HISTORY: Lumbar spinal surgery, cholecystectomy, multiple lithotripsies, tonsillectomy, and cataract surgery. MEDICATIONS: Medications per my medication reconciliation: 1. Allopurinol 200 mg p.o. daily. 2. Amantadine 100 mg p.o. b.i.d. 3. Vitamin D 2000 units p.o. daily. 4. Clonazepam 0.5 mg p.o. at bedtime as needed. 5. Duloxetine 30 mg p.o. daily. 6. Neurontin 600 mg p.o. 4 times a day. 7. Rivastigmine patch 9.5 mg patch 1 patch transdermal daily. 8. Labetalol 100 mg p.o. b.i.d. 9. Folic acid 1 mg p.o. daily. 10. Lactulose 15 mL p.o. b.i.d. as needed. 11. Aspirin 81 mg p.o. daily. 12. Pravachol 40 mg p.o. daily. 13. Tylenol extra strength 1000 mg p.o. t.i.d. as needed. 14. Multivitamin 1 tab p.o. daily. 15. Omeprazole 20 mg p.o. daily. 16. Meloxicam 7.5 mg p.o. daily. 17. Divalproex 250 mg p.o. b.i.d. 18. Percocet 10/325 one tab p.o. t.i.d. as needed. 19. Lisinopril 10 mg p.o. at bedtime. 20. Morphine sulfate 15 mg p.o. t.i.d. 21. Calcium with vitamin D/vitamin K one chew p.o. b.i.d. 22. Magnesium oxide 400 mg p.o. b.i.d. 23. Triamcinolone nasal spray 2 sprays both nares at bedtime as needed. ALLERGIES: No known drug allergies. FAMILY HISTORY: The patient's parental history is unknown. The patient has no siblings. SOCIAL HISTORY: The patient has a 73-[id number] history of smoking, quit decades ago. The patient previously abused alcohol and does not drink alcohol now. The patient denies ever having illicit drug use. 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 The patient is and has 1 child. The patient's surrogate decision maker will be his , Evelyne Chapa. REVIEW OF SYSTEMS: A 10-point review of systems was reviewed and is negative except as above in the HPI and for slight weight loss for the several months. PHYSICAL EXAMINATION GENERAL: The patient is a 73-year-old male who appears stated age and sitting comfortably in the bed, in no acute distress. VITAL SIGNS: At time of evaluation, temperature 96.5, pulse rate 52, respiratory rate 10, oxygen saturation 95% on room air, blood pressure 127/76. HEENT: Head: Normocephalic and atraumatic. Sclerae anicteric. No conjunctival injection. Oral mucosa dry. Nasal mucosa dry. NECK: Supple, nontender. No lymphadenopathy. No carotid bruits auscultated. No JVD. RESPIRATORY: Clear to auscultation bilaterally. No wheezes, rales or rhonchi. Good air exchange bilaterally. CARDIAC: Regular rate and rhythm. No clicks, murmurs, gallops or rubs. Pulses are 2+ in the bilateral dorsalis pedis, posterior tibialis, and radial areas. ABDOMEN: Soft, nontender, nondistended. Bowel sounds present and normoactive in all 4 quadrants. No hepatosplenomegaly. No abdominal bruits auscultated. No hepatojugular reflux. GENITOURINARY: No suprapubic or CVA tenderness. NEUROLOGIC: Mask-like facies. Slight intention tremor. No focal deficits. Alert and oriented x3. PSYCHIATRIC: Pleasant and cooperative. SKIN: Clean, dry, and intact. No rashes. DIAGNOSTIC STUDIES/LAB DATA: White blood cell count 13.7, hemoglobin 11.5, platelet count 161,000. Sodium 135, potassium 3.8, chloride 103, carbon dioxide 24, anion gap 8, BUN 30, creatinine 1.57, glucose 191, calcium is 8.5. Troponin -I 0.02. Bilirubin 0.6, ALT 29, alkaline phosphatase 67. BNP 174. Protein 6.2 , albumin 3.7, globulin 2.5. Influenza A and B negative. Hepatitis C negative. Studies: EKG shows normal sinus rhythm, QTc of 512, rate of 61. No ST segment elevation or depression. No hypertrophy or enlargement. Compared with previous exam, there are no significant changes. Chest x-ray read as linear airspace opacification left lower lung zone, atelectasis versus infiltrate. ASSESSMENT AND PLAN: Impression: Mr. Chapa is a 73-year-old male with past medical history significant for Parkinson's disease, diabetes mellitus type 2, and diabetic neuropathy, who presents to the emergency department after syncope on standing today with prodrome, found to be markedly orthostatic and likely dehydrated, who was admitted to the hospital for supportive care and further evaluation. 1. Syncope, orthostatic hypotension. The patient has several reasons to have orthostatic hypotension. He appears to be dehydrated. This is likely the primary reason and also acute reason; however, the patient is also on alpha- beta gary in labetalol which is a high dose as well as having idiopathic Parkinson's disease and diabetic neuropathy. The patient does not pass out often, it is likely the patient is compensated except when he is dehydrated. The etiology of the patient's dehydration is unclear, but he has been having increased amount and frequency of urine, possibly related to some sort of stress response causing glucosuria. Urinalysis is pending at this time. However, given the patient's elevated creatinine, concentrated appearing urine, and dry mucous membranes as it is the best thought that we have. The patient received 2 L of fluids at this time and still orthostatic. The patient will be continued on lactated Ringer's at 100 mL an hour and will have repeat orthostatic vital signs in the morning. The patient's blood sugar will be controlled. The patient will be started on antibiotics for a presumed urinary tract infection versus lung infection though he lacks respiratory symptoms. He does have infiltrate and general systemic symptoms. This could be viral, however , given this area of the patient's illness and admission to the hospital, will be treated at this time with antibiotics. The patient's large dose of pain medications are likely also contributing given his decreased renal function, doses on his pain medication will be decreased temporarily and then increase back to their home doses when his renal function returns to normal. The patient was on physical therapy and occupational therapy while in the hospital, which helped with his orthostatic hypotension. 2. Acute on chronic kidney disease. The patient's creatinine was up to 0.69 from a baseline of approximately 1.1. This is likely related to dehydration. Please see above discussion. The patient received 2 L of fluid and will continue on lactated Ringer's as above. The patient's medication will be renally dosed. 3. Parkinson's. Continue the patient's amantadine at this time. The patient did not appear markedly symptomatic from his Parkinson's. 4. Diabetes mellitus type 2. The patient's blood sugar is elevated. The patient did not appear to be on any medications for his diabetes. The patient will be on insulin sliding scale while in the hospital. Hemoglobin A1c will be checked and if the patient's blood sugars are out of control, in chronic fashion medication treatment should be considered. 5. Hypertension. Decrease the dose of the patient's labetalol. This is likely contributing to his orthostatic hypotension while the patient is on lisinopril in the setting of acute kidney injury. Monitor his blood pressure closely for supine hypertension. 6. Chronic pain. The patient is on numerous pain medications. Continue the patient's duloxetine, gabapentin, morphine, and oxycodone, all at decreased doses except for the duloxetine. Hold the patient's meloxicam in the setting of acute kidney injury. 7. Gout. Continue renally dosed allopurinol. 8. Carotid artery stenosis. This was recently evaluated. The patient has no focal neurologic deficits and this is not likely related to the patient's presentation. 9. Depression. Continue the patient's home duloxetine. 10. Hyperlipidemia. Continue pravastatin. 11. DVT prophylaxis. Lovenox subcu. 12. FEN. The patient will have a regular unrestricted diet and fluids as above. 13. Code status. The patient is a full code. 14. Disposition. The patient is admitted to observation in the hospital. TIME SPENT: Approximately 60 minutes was spent on the admission of this patient , 30 of which was spent [id number] with the patient obtaining history and physical and discussing treatment plan. This plan has been discussed with my attending, Dr. Mariano Cabral, and he is in agreement. CECI LLAMAS [id number]/CPS #: [id number] MTDD
[2019-06-01] MEDS ORDERED: Senna TAB 8.6 mg* TAB PO PRN (22:13)
[2019-06-01] MEDS: Amantadine CAP* 100 MG PO SCH (23:01)
[2019-06-02 05:49] LABS: ABS Eosinophils 0.4 10^3/ul (0-0.6); ABS Lymphocytes 2.4 10^3/ul (1.0-4.8); ABS Monocytes 0.7 10^3/ul (0-0.8); ABS Neutrophils 4.9 10^3/ul (1.5-7.7); Eosinophil % 4.5 %; Hematocrit 34 % (42-52); Lymphocyte % 28.7 %; Mean Corpuscular HGB Conc 33 g/dL (31-36); Mean Corpuscular Hemoglobin 27 pg (27-31); Mean Corpuscular Volume 82 fL (80-94); Mean Platelet Volume 7.5 fL (7.4-10.4); Platelet Count 140 10^3/uL (150-450); Red Blood Count 4.08 10^6 /uL (4.18-5.48); Red Cell Distribution Width 15 % (10-15); White Blood Count 8.5 10^3/uL (3.5-10.8)
[2019-06-02 06:36] LABS: Calcium 8.3 mg/dL (8.6-10.3); Magnesium 1.8 mg/dL (1.9-2.7); Potassium 3.7 mmol/L (3.5-5.0)
[2019-06-02 06:42] LABS: BUN/Creatinine Ratio 18.8 (8-20); C Reactive Protein 41.76 mg/L (<8.01); EGFR African American 64.1 (>60)
[2019-06-02] MEDS ORDERED: Magnesium Sulfate 1 GM IV* 1 GM/100 ML BAG IV ONE (07:00)
[2019-06-02] MEDS: Labetalol TAB* 100 MG PO SCH (08:50)
[2019-06-02] MEDS: Insulin LISPRO* 1 UNITS UNIT SUBCUT SCH ×2 (08:52→13:12)
[2019-06-02] MEDS: Divalproex DR TAB(*) 250 MG PO SCH (08:53)
[2019-06-02] MEDS: Magnesium Oxide TAB* 400 MG PO SCH (08:53)
[2019-06-02] MEDS: Morphine TAB Extended Release (*) 15 MG TAB.ER PO SCH (08:53)
[2019-06-02] MEDS: Gabapentin CAP(*) 300 MG PO SCH ×2 (08:54→13:13)
[2019-06-02] MEDS ORDERED: DULoxetine DR CAP* 30 MG CAP.DR PO SCH (09:00)
[2019-06-02] MEDS ORDERED: Aspirin EC TAB* 81 MG TAB.EC PO SCH (09:00)
[2019-06-02] MEDS ORDERED: Allopurinol TAB* 100 MG PO SCH (09:00)
[2019-06-02] MEDS ORDERED: RIVASTIGMINE 9.5 MG TRANSDERM SCH (09:00)
[2019-06-02] MEDS ORDERED: Folic Acid TAB* 1 MG PO SCH (09:00)
[2019-06-02] MEDS ORDERED: Pantoprazole TAB * 40 MG TAB PO SCH (09:00)
[2019-06-02] MEDS ORDERED: Multivitamins/Minerals TAB PO SCH (09:00)
[2019-06-02] MEDS: DOXYcycline IV* 100 MG in NS 0.9% 250 ML* 250 ML IVPB SCH (09:55)
[2019-06-02] MEDS: Amantadine CAP* 100 MG PO SCH (11:21)
[2019-06-02 11:30] VITALS: BP 172/61
--- NOTE | 2019-06-02 20:27 | DS ---
CC: Dr. Gema Cabral * DISCHARGE SUMMARY: DATE OF ADMISSION: 06/01/19 DATE OF DISCHARGE: 06/02/19 PRIMARY CARE PROVIDER: Dr. Gema Cabral. MY ATTENDING WHILE IN THE HOSPITAL: Dr. Mariano Cabral.* (DICTATED BY CECI LLAMAS) PRIMARY DISCHARGE DIAGNOSES: 1. Orthostatic hypotension due to dehydration, likely also multifactorial. 2. Acute kidney injury, improved. 3. Likely community-acquired pneumonia. SECONDARY DISCHARGE DIAGNOSES: 1. Parkinson's disease. 2. Diabetes mellitus type 2. 3. Diabetic neuropathy. 4. Hypertension. 5. Depression. 6. Gout. 7. Carotid artery stenosis. 8. History of Charcot foot. 9. History of multiple episodes of nephrolithiasis. 10. Irritable bowel syndrome. STUDIES DONE WHILE IN THE HOSPITAL: Chest x-ray from 06/01/19 read as linear airspace opacification in the left lower lung zone, atelectasis versus infiltrate. MEDICATIONS AT DISCHARGE: 1. Allopurinol 200 mg p.o. daily. 2. Amantadine 100 mg p.o. b.i.d. 3. Vitamin D3 2000 units p.o. daily. 4. Clonazepam 0.5 mg p.o. at bedtime as needed. 5. Duloxetine 30 mg p.o. daily. 6. Gabapentin 600 mg p.o. 4 times daily. 7. Rivastigmine patch 9.5 mg patch 1 daily. 8. Labetalol 50 mg p.o. b.i.d. 9. Folic acid 1 mg p.o. daily. 10. Lactulose 15 mL p.o. b.i.d. as needed. 11. Aspirin 81 mg p.o. daily. 12. Pravastatin 40 mg p.o. daily. 13. Tylenol 1000 mg p.o. t.i.d. as needed. 14. Multivitamin 1 tab p.o. daily. 15. Omeprazole 20 mg p.o. daily. 16. Meloxicam 7.5 mg p.o. daily. 17. Divalproex 250 mg p.o. b.i.d. 18. Percocet 5/325 one tab p.o. 4 times daily as needed. 19. Lisinopril 10 mg p.o. at bedtime. 20. Morphine extended release 15 mg p.o. t.i.d. 21. Calcium carbonate/vitamin D 1 tab p.o. b.i.d. 22. Magnesium oxide 200 mg p.o. daily. 23. Triamcinolone 2 sprays both nares at bedtime. 24. Cefuroxime 250 mg p.o. b.i.d. 25. Doxycycline 100 mg p.o. b.i.d. New medications at discharge: 1. Doxycycline 100 mg p.o. b.i.d. 2. Cefuroxime 250 mg p.o. b.i.d. 3. Labetalol 50 mg p.o. b.i.d. Medication discontinued at discharge: 1. Labetalol 100 mg p.o. b.i.d. HOSPITAL COURSE: This is a brief summary of the patient's presentation. For more details, please see the history and physical from this author on 06/01/19. In brief, the patient is a 73-year-old male with past medical history significant for the above, who presented to the emergency department with syncope while standing with occupational therapy. The patient had been feeling poorly for 1 day prior to his admission. He did not have shortness of breath, but did have significant increase in his urine output with urinary incontinence. The patient had a negative urinalysis, a chest x-ray read as above concerning for pneumonia, an elevated CRP, an elevated white blood cell count, and was found to have an elevated creatinine at 1.69 and found to be markedly orthostatically hypotensive in the emergency department, almost passing out when standing in the emergency department. The patient was given 2 L of fluid in the emergency department and his orthostatic hypotension did not improve. The patient was admitted to the hospital, was started on antibiotics, given additional fluids. The patient felt much better after fluids and antibiotics. The patient's polyuria resolved. The patient's CRP declined. The patient had an initially elevated troponin at 0.03, but this was trended down and is within his baseline. The patient had a hemoglobin A1c of 6.4, which is under good control. The patient had his lisinopril, meloxicam, and labetalol held for acute kidney injury and orthostatic hypotensive respectively. The patient on 06/02/19 had repeat orthostatic vital signs, which also showed a drop in the patient's blood pressure; however, he was not symptomatic with this and felt back to his baseline. The patient was anxious for discharge home on and was stable and amenable for discharge to home on 06/02/19. PHYSICAL EXAM ON THE DAY OF DISCHARGE: General: The patient is a 73-year-old male, who appears stated age, has mask-like facies, sitting in the bed, in no acute distress. Vital Signs: At the time of evaluation, temperature 97.5, pulse rate 56, respiratory rate 16, oxygen saturation 100% on room air, blood pressure 172/61. HEENT: Head normocephalic, atraumatic. Sclerae anicteric. No conjunctival injection. Nasal mucosa moist. Oral mucosa moist. No pharyngeal erythema, discharge, or exudate. Neck: Supple, nontender. No lymphadenopathy. No carotid bruits auscultated. No JVD. Cardiac: Regular rate and rhythm. No clicks, murmurs, gallops, or rubs. Pulses are 2+ in the bilateral dorsalis pedis, posterior tibialis, and radial areas. Respiratory: Clear to auscultation bilaterally. No wheezes, rales, or rhonchi. Good air exchange bilaterally. Abdomen: Soft, nontender, nondistended. Bowel sounds present and normoactive in all 4 quadrants. No hepatosplenomegaly. No abdominal bruits auscultated. No hepatojugular reflux. Genitourinary: No suprapubic or CVA tenderness. Skin: Clean, dry, and intact. No rash. Neuro: Slight tremor. Mask-like facies. Psychiatric: Pleasant and cooperative. DISCHARGE PLAN BY PROBLEM: 1. Orthostatic hypotension, syncope. The patient's syncope is very likely related to his orthostatic hypotension. The patient had several reasons to be orthostatically hypotensive. The most acute being his significant dehydration. His dehydration appears to have been from his polyuria. His polyuria was likely from elevated blood sugars. The cause behind this is again likely underlying infection, the most likely candidate being his infiltrate on chest x- ray, though again he lacked respiratory symptoms, so this is not clear. The patient had no pyuria. The patient's chronic foot wound did not appear to be infected. This may be related to a viral infection; however, the patient is improving on antibiotics and these will be continued for a total of 7 days for a presumed diagnosis of community-acquired pneumonia. The patient's labetalol has been decreased for his orthostatic hypotension. The patient is hypertensive at this time; however, his lisinopril, which was held in the hospital, will be resumed. The patient should follow up closely with his primary care provider for repeat blood pressure check and possible addition of additional medications or an increase in his lisinopril for treatment of increased blood pressure if still present. The patient's orthostatic hypotension is also likely contributed to by his idiopathic Parkinson's disease and his diabetic neuropathy. The patient should be careful when standing up and avoid dehydration avidly. 2. Acute kidney injury. The patient's acute kidney injury has resolved at this time with fluids and holding of BLOSSOM inhibitor and NSAIDs. These will be continued at home and again the patient should avoid dehydration avidly. The patient should have a recheck of his kidney function in 1 week with his primary care provider. 3. Community-acquired pneumonia. Treatment as above. Continue Ceftin and doxycycline for 1 total week. 4. Chronic foot wound. Follow up with outpatient wound clinic for ABIs tomorrow. The patient should continue Silvadene. The patient has no signs of infection on this wound at this time. 5. Diabetes mellitus type 2. The patient's hemoglobin A1c is 6.4. Not on any anti-hyperglycemic medications. Continue dietary modifications at home. 6. Chronic pain. Continue the patient's significant chronic opioids, gabapentin, and Tylenol. The patient's pain is well controlled on these. These were decreased while in the hospital due to BROWN, but were resumed at his home doses at discharge with improvement in his renal function. 7. Parkinson's disease. Continue Symmetrel and rivastigmine. DISPOSITION: Home. CONDITION: Stable. TIME SPENT: Approximately 60 minutes was spent on the discharge of this patient , 30 of which was spent [id number] with the patient obtaining history and physical and discussing treatment plan. CECI LLAMAS [id number]/CPS #: [id number] MTDD
[2019-06-02] MEDS ORDERED: Lisinopril TAB* 10 MG PO SCH (21:00)
== END 2019-06-02 13:45 | disposition home or self-care (01) ==
LOC: ED 12:06 → MEDTELE 16:04
PROVIDERS: ADMIT Internal Medicine; ATTEND Internal Medicine
DX: I95.1 Orthostatic hypotension (principal); E86.0 Dehydration; N17.9 Acute kidney failure, unspecified; J18.9 Pneumonia, unspecified organism; G20 Parkinson's disease; E11.40 Type 2 diabetes mellitus with diabetic neuropathy, unspecified; I10 Essential (primary) hypertension; F32.9 Major depressive disorder, single episode, unspecified; M10.9 Gout, unspecified; I65.29 Occlusion and stenosis of unspecified carotid artery; A52.16 Charcot's arthropathy (tabetic); K58.9 Irritable bowel syndrome, unspecified; Z87.442 Personal history of urinary calculi; Z79.899 Other long term (current) drug therapy; Z79.82 Long term (current) use of aspirin; G89.29 Other chronic pain; Z87.891 Personal history of nicotine dependence; Z95.0 Presence of cardiac pacemaker
CPT/HCPCS: 36415; 71045; 80048; 80053; 81003; 83036; 83735; 83880; 84484; 85025; 86140; 86803; 87040; 93005; 96361; 96365; 96366; 96367; 96372; 99285; A9270-GY; G0378; J0696; J1650; J3475

== ENCOUNTER 2019-11-14 12:04 | Inpatient (IN) ==
[2019-11-14 15:51] LABS: ABS Basophils 0.1 10^3/ul (0-0.2); ABS Eosinophils 0.2 10^3/ul (0-0.6); ABS Lymphocytes 2.8 10^3/ul (1.0-4.8); ABS Monocytes 1.3 10^3/ul (0-0.8); ABS Neutrophils 6.3 10^3/ul (1.5-7.7); Eosinophil % 2.2 %; Hematocrit 38 % (42-52); Hemoglobin 12.7 g/dL (14.0-18.0); Lymphocyte % 26.5 %; Mean Corpuscular HGB Conc 34 g/dL (31-36); Mean Corpuscular Hemoglobin 28 pg (27-31); Mean Corpuscular Volume 83 fL (80-94); Mean Platelet Volume 8.3 fL (7.4-10.4); Platelet Count 170 10^3/uL (150-450); Red Blood Count 4.52 10^6 /uL (4.18-5.48); Red Cell Distribution Width 16 % (10-15); White Blood Count 10.7 10^3/uL (3.5-10.8)
[2019-11-14 16:26] LABS: Magnesium 2.9 mg/dL (1.9-2.7); Potassium 4.5 mmol/L (3.5-5.0); Total Bilirubin 0.5 mg/dL (0.2-1.0)
[2019-11-14 16:32] LABS: Albumin/Globulin Ratio 1.5 (1-3); BUN/Creatinine Ratio 22.6 (8-20); EGFR African American 35.6 (>60); EGFR Non-African American 29.4 (>60); Globulin 2.7 g/dL (2-4); Total Protein 6.7 g/dL (6.4-8.9)
[2019-11-14 16:34] LABS: TSH Ultra Thyroid Stim Horm 1.08 mcIU/mL (0.34-5.60)
[2019-11-14] MEDS ORDERED: NS 0.9% 1000 ml BAG 1,000 ML IV ONE (16:36)
[2019-11-14] MEDS ORDERED: Ondansetron 4 mg VIAL 2 MG/ML 2 ml VIAL IV PRN (18:14)
[2019-11-14] MEDS ORDERED: Dextrose 50% Syringe 50 ml 25 GM/50 ML SYRINGE IV PUSH PRN (19:35)
[2019-11-14 21:29] LABS: Urine Appearance Clear; Urine Bilirubin Negative (Negative); Urine Blood Negative (Negative); Urine Color Yellow; Urine Glucose Negative (Negative); Urine Ketones Negative (Negative); Urine Nitrite Negative (Negative); Urine Protein Negative (Negative); Urine Specific Gravity 1.016 (1.010-1.030); Urine Urobilinogen Negative (Negative)
[2019-11-14 21:35] LABS: C Reactive Protein 15.81 mg/L (<8.01)
[2019-11-14 21:48] LABS: Urine Creatinine Concentration 133.13 mg/dL
[2019-11-14] MEDS: NS 0.9% 1000 ml BAG 1,000 ML IV SCH (22:05)
[2019-11-14] MEDS: Morphine ER 15 mg TAB ** extended release PO SCH (22:09)
[2019-11-14] MEDS: Heparin 5000 UNITS/ML 1 mL VIAL SUBCUT SCH (22:09)
[2019-11-15] MEDS: Heparin 5000 UNITS/ML 1 mL VIAL SUBCUT SCH ×3 (05:32→21:04)
[2019-11-15 08:06] LABS: Albumin 3.5 g/dL (3.2-5.2); CO2 Carbon Dioxide 18 mmol/L (22-32); Calcium 8.3 mg/dL (8.6-10.3); Chloride 107 mmol/L (101-111); Magnesium 2.5 mg/dL (1.9-2.7); Sodium 137 mmol/L (135-145)
[2019-11-15 08:12] LABS: ALT 61 U/L (7-52); Albumin/Globulin Ratio 1.8 (1-3); Alkaline Phosphatase 98 U/L (34-104); Blood Urea Nitrogen 41 mg/dL (6-24); EGFR African American 47.9 (>60); EGFR Non-African American 39.5 (>60); Glucose 130 mg/dL (70-100); Total Protein 5.5 g/dL (6.4-8.9)
[2019-11-15 08:15] LABS: Anion Gap 12 mmol/L (2-11)
[2019-11-15] MEDS: Aspirin EC 81 mg TAB.EC (enteric coated) PO SCH (08:28)
[2019-11-15] MEDS: Morphine ER 15 mg TAB ** extended release PO SCH ×3 (08:28→21:11)
[2019-11-15] MEDS: Cholecalciferol (VIT D3) 1,000 unit TAB PO SCH (08:28)
[2019-11-15] MEDS: DULoxetine DR 30 mg CAP PO SCH (08:28)
[2019-11-15] MEDS: Multivitamins/Minerals TAB PO SCH (08:29)
[2019-11-15] MEDS: RIVASTIGMINE 9.5 MG TRANSDERM SCH (08:32)
[2019-11-15] MEDS: Fluticasone NASAL SPRAY 50MCG 16 gm SPRAY BTL BOTH NARES SCH (09:00)
[2019-11-15 09:43] LABS: ABS Eosinophils 0.3 10^3/ul (0-0.6); ABS Lymphocytes 1.4 10^3/ul (1.0-4.8); ABS Monocytes 0.4 10^3/ul (0-0.8); ABS Neutrophils 2.4 10^3/ul (1.5-7.7); Eosinophil % 6.3 %; Hematocrit 37 % (42-52); Hemoglobin 12.2 g/dL (14.0-18.0); Lymphocyte % 31.3 %; Mean Corpuscular HGB Conc 34 g/dL (31-36); Mean Corpuscular Hemoglobin 28 pg (27-31); Mean Corpuscular Volume 83 fL (80-94); Mean Platelet Volume 7.8 fL (7.4-10.4); Platelet Count 128 10^3/uL (150-450); Red Cell Distribution Width 16 % (10-15); White Blood Count 4.6 10^3/uL (3.5-10.8)
[2019-11-15 09:59] LABS: Potassium Redraw 4.5 mmol/L (3.5-5.0)
[2019-11-15] MEDS: NS 0.9% 1000 ml BAG 1,000 ML IV SCH ×2 (10:29→21:01)
[2019-11-16] MEDS: hydrALAZINE 20 mg/ml 1 ML Vial IV IV SLOW PU PRN ×2 (01:55→11:03)
[2019-11-16] MEDS ORDERED: hydrALAZINE 20 mg/ml 1 ML Vial IV IV SLOW PU ONE (04:18)
[2019-11-16] MEDS: Heparin 5000 UNITS/ML 1 mL VIAL SUBCUT SCH ×3 (06:05→21:25)
[2019-11-16] MEDS ORDERED: Labetalol IV 5 MG/ML 20 ml VIAL IV PUSH ONE (06:12)
[2019-11-16] MEDS: DULoxetine DR 30 mg CAP PO SCH (08:58)
[2019-11-16] MEDS: Cholecalciferol (VIT D3) 1,000 unit TAB PO SCH (08:58)
[2019-11-16] MEDS: Morphine ER 15 mg TAB ** extended release PO SCH ×3 (08:59→21:21)
[2019-11-16] MEDS: Aspirin EC 81 mg TAB.EC (enteric coated) PO SCH (08:59)
[2019-11-16] MEDS: Multivitamins/Minerals TAB PO SCH (08:59)
[2019-11-16 09:00] LABS: ABS Eosinophils 0.2 10^3/ul (0-0.6); ABS Lymphocytes 1.4 10^3/ul (1.0-4.8); ABS Monocytes 0.4 10^3/ul (0-0.8); ABS Neutrophils 3.4 10^3/ul (1.5-7.7); Eosinophil % 4.3 %; Hematocrit 37 % (42-52); Hemoglobin 12.7 g/dL (14.0-18.0); Lymphocyte % 25.6 %; Mean Corpuscular HGB Conc 35 g/dL (31-36); Mean Corpuscular Hemoglobin 28 pg (27-31); Mean Corpuscular Volume 82 fL (80-94); Mean Platelet Volume 7.4 fL (7.4-10.4); Platelet Count 156 10^3/uL (150-450); Red Blood Count 4.52 10^6 /uL (4.18-5.48); Red Cell Distribution Width 16 % (10-15); White Blood Count 5.5 10^3/uL (3.5-10.8)
[2019-11-16] MEDS: RIVASTIGMINE 9.5 MG TRANSDERM SCH (09:03)
[2019-11-16] MEDS: Fluticasone NASAL SPRAY 50MCG 16 gm SPRAY BTL BOTH NARES SCH (09:04)
[2019-11-16 09:24] LABS: BUN/Creatinine Ratio 22.1 (8-20); Calcium 9.3 mg/dL (8.6-10.3); EGFR African American 77.2 (>60); EGFR Non-African American 63.8 (>60); Potassium 4.5 mmol/L (3.5-5.0)
[2019-11-16] MEDS: NS 0.9% 1000 ml BAG 1,000 ML IV SCH (19:48)
[2019-11-17] MEDS: Heparin 5000 UNITS/ML 1 mL VIAL SUBCUT SCH ×3 (05:48→21:04)
[2019-11-17 06:06] LABS: ABS Basophils 0.1 10^3/ul (0-0.2); ABS Eosinophils 0.2 10^3/ul (0-0.6); ABS Lymphocytes 1.9 10^3/ul (1.0-4.8); ABS Monocytes 0.6 10^3/ul (0-0.8); ABS Neutrophils 2.9 10^3/ul (1.5-7.7); Eosinophil % 3.4 %; Hematocrit 37 % (42-52); Hemoglobin 12.6 g/dL (14.0-18.0); Lymphocyte % 33.4 %; Mean Corpuscular HGB Conc 34 g/dL (31-36); Mean Corpuscular Hemoglobin 28 pg (27-31); Mean Corpuscular Volume 82 fL (80-94); Mean Platelet Volume 7.8 fL (7.4-10.4); Nucleated Red Blood Cells % 0.1; Platelet Count 167 10^3/uL (150-450); Red Blood Count 4.51 10^6 /uL (4.18-5.48); Red Cell Distribution Width 16 % (10-15); White Blood Count 5.6 10^3/uL (3.5-10.8)
[2019-11-17 06:22] LABS: BUN/Creatinine Ratio 23.1 (8-20); Calcium 9.2 mg/dL (8.6-10.3); EGFR African American 74.1 (>60); EGFR Non-African American 61.3 (>60); Potassium 4.1 mmol/L (3.5-5.0)
[2019-11-17] MEDS: hydrALAZINE 20 mg/ml 1 ML Vial IV IV SLOW PU PRN (08:16)
[2019-11-17] MEDS: Aspirin EC 81 mg TAB.EC (enteric coated) PO SCH (08:21)
[2019-11-17] MEDS: RIVASTIGMINE 9.5 MG TRANSDERM SCH (08:21)
[2019-11-17] MEDS: Multivitamins/Minerals TAB PO SCH (08:22)
[2019-11-17] MEDS: Cholecalciferol (VIT D3) 1,000 unit TAB PO SCH (08:22)
[2019-11-17] MEDS: DULoxetine DR 30 mg CAP PO SCH (08:24)
[2019-11-17] MEDS: Morphine ER 15 mg TAB ** extended release PO SCH ×3 (08:24→21:04)
[2019-11-17] MEDS: Fluticasone NASAL SPRAY 50MCG 16 gm SPRAY BTL BOTH NARES SCH (08:25)
[2019-11-17] MEDS: NS 0.9% 1000 ml BAG 1,000 ML IV SCH (11:10)
[2019-11-18] MEDS: NS 0.9% 1000 ml BAG 1,000 ML IV SCH ×2 (02:12→16:53)
[2019-11-18] MEDS: Heparin 5000 UNITS/ML 1 mL VIAL SUBCUT SCH ×3 (06:18→20:25)
[2019-11-18 07:00] LABS: ABS Eosinophils 0.3 10^3/ul (0-0.6); ABS Lymphocytes 2.2 10^3/ul (1.0-4.8); ABS Monocytes 0.5 10^3/ul (0-0.8); ABS Neutrophils 2.7 10^3/ul (1.5-7.7); Eosinophil % 4.8 %; Hematocrit 36 % (42-52); Hemoglobin 12.2 g/dL (14.0-18.0); Lymphocyte % 38.4 %; Mean Corpuscular HGB Conc 34 g/dL (31-36); Mean Corpuscular Hemoglobin 28 pg (27-31); Mean Corpuscular Volume 83 fL (80-94); Mean Platelet Volume 7.8 fL (7.4-10.4); Nucleated Red Blood Cells % 0.1; Platelet Count 149 10^3/uL (150-450); Red Blood Count 4.35 10^6 /uL (4.18-5.48); Red Cell Distribution Width 16 % (10-15); White Blood Count 5.7 10^3/uL (3.5-10.8)
[2019-11-18 07:18] LABS: BUN/Creatinine Ratio 24.1 (8-20); Calcium 8.8 mg/dL (8.6-10.3); EGFR African American 81.3 (>60); EGFR Non-African American 67.2 (>60); Potassium 4.2 mmol/L (3.5-5.0)
[2019-11-18] MEDS: Multivitamins/Minerals TAB PO SCH (08:49)
[2019-11-18] MEDS: Cholecalciferol (VIT D3) 1,000 unit TAB PO SCH (08:49)
[2019-11-18] MEDS: DULoxetine DR 30 mg CAP PO SCH (08:50)
[2019-11-18] MEDS: Aspirin EC 81 mg TAB.EC (enteric coated) PO SCH (08:50)
[2019-11-18] MEDS: Morphine ER 15 mg TAB ** extended release PO SCH ×3 (08:51→20:22)
[2019-11-18] MEDS: Fluticasone NASAL SPRAY 50MCG 16 gm SPRAY BTL BOTH NARES SCH (08:52)
[2019-11-18] MEDS: RIVASTIGMINE 9.5 MG TRANSDERM SCH (08:54)
[2019-11-18] MEDS ORDERED: Iodixanol (CONTRAST) 320 MG/ML 100 ML SDV IV ONE (16:56)
[2019-11-19] MEDS: Heparin 5000 UNITS/ML 1 mL VIAL SUBCUT SCH ×3 (06:31→22:27)
[2019-11-19] MEDS: NS 0.9% 1000 ml BAG 1,000 ML IV SCH (09:23)
[2019-11-19] MEDS: RIVASTIGMINE 9.5 MG TRANSDERM SCH (09:27)
[2019-11-19] MEDS: DULoxetine DR 30 mg CAP PO SCH (09:31)
[2019-11-19] MEDS: Multivitamins/Minerals TAB PO SCH (09:31)
[2019-11-19] MEDS: Cholecalciferol (VIT D3) 1,000 unit TAB PO SCH (09:32)
[2019-11-19] MEDS: Morphine ER 15 mg TAB ** extended release PO SCH ×3 (09:33→19:51)
[2019-11-19] MEDS: Aspirin EC 81 mg TAB.EC (enteric coated) PO SCH (09:33)
[2019-11-19] MEDS: Fluticasone NASAL SPRAY 50MCG 16 gm SPRAY BTL BOTH NARES SCH (09:34)
[2019-11-20] MEDS: hydrALAZINE 20 mg/ml 1 ML Vial IV IV SLOW PU PRN ×2 (00:41→06:00)
[2019-11-20] MEDS: Heparin 5000 UNITS/ML 1 mL VIAL SUBCUT SCH ×3 (05:51→21:07)
[2019-11-20] MEDS: Aspirin EC 81 mg TAB.EC (enteric coated) PO SCH (08:27)
[2019-11-20] MEDS: Morphine ER 15 mg TAB ** extended release PO SCH ×3 (08:27→21:08)
[2019-11-20] MEDS: DULoxetine DR 30 mg CAP PO SCH (08:27)
[2019-11-20] MEDS: Cholecalciferol (VIT D3) 1,000 unit TAB PO SCH (08:30)
[2019-11-20] MEDS: Multivitamins/Minerals TAB PO SCH (08:31)
[2019-11-20] MEDS: RIVASTIGMINE 9.5 MG TRANSDERM SCH (08:34)
[2019-11-20 09:04] LABS: ABS Basophils 0.1 10^3/ul (0-0.2); ABS Eosinophils 0.4 10^3/ul (0-0.6); ABS Monocytes 0.6 10^3/ul (0-0.8); ABS Neutrophils 3.1 10^3/ul (1.5-7.7); Eosinophil % 6.1 %; Hematocrit 37 % (42-52); Hemoglobin 12.3 g/dL (14.0-18.0); Lymphocyte % 33.1 %; Mean Corpuscular HGB Conc 33 g/dL (31-36); Mean Corpuscular Hemoglobin 28 pg (27-31); Mean Corpuscular Volume 83 fL (80-94); Mean Platelet Volume 7.9 fL (7.4-10.4); Platelet Count 166 10^3/uL (150-450); Red Blood Count 4.43 10^6 /uL (4.18-5.48); Red Cell Distribution Width 15 % (10-15); White Blood Count 6.2 10^3/uL (3.5-10.8)
[2019-11-20 09:15] LABS: BUN/Creatinine Ratio 19.1 (8-20); Calcium 9.5 mg/dL (8.6-10.3); EGFR African American 75.6 (>60); EGFR Non-African American 62.5 (>60); Potassium 4.2 mmol/L (3.5-5.0)
[2019-11-20] MEDS: Fluticasone NASAL SPRAY 50MCG 16 gm SPRAY BTL BOTH NARES SCH (12:17)
[2019-11-20] MEDS ORDERED: Polyethylene Glycol 3350 17 GM PACKET PO ONE (13:34)
[2019-11-20] MEDS ORDERED: Polyethylene Glycol 3350 17 GM PACKET ONE (16:12)
[2019-11-20] MEDS: Senna TAB 8.6 mg TAB PO SCH (21:08)
[2019-11-21] MEDS: Heparin 5000 UNITS/ML 1 mL VIAL SUBCUT SCH ×3 (05:57→20:38)
[2019-11-21] MEDS: RIVASTIGMINE 9.5 MG TRANSDERM SCH (08:12)
[2019-11-21] MEDS: Multivitamins/Minerals TAB PO SCH (08:14)
[2019-11-21] MEDS: DULoxetine DR 30 mg CAP PO SCH (08:14)
[2019-11-21] MEDS: Aspirin EC 81 mg TAB.EC (enteric coated) PO SCH (08:14)
[2019-11-21] MEDS: Morphine ER 15 mg TAB ** extended release PO SCH ×3 (08:15→20:38)
[2019-11-21] MEDS: Fluticasone NASAL SPRAY 50MCG 16 gm SPRAY BTL BOTH NARES SCH (08:16)
[2019-11-21] MEDS: Cholecalciferol (VIT D3) 1,000 unit TAB PO SCH (08:16)
[2019-11-21] MEDS: Senna TAB 8.6 mg TAB PO SCH (20:38)
[2019-11-22] MEDS: Heparin 5000 UNITS/ML 1 mL VIAL SUBCUT SCH ×3 (05:01→22:04)
[2019-11-22] MEDS ORDERED: Magnesium CITRATE LIQ 300 ML BTL PO ONE (08:30)
[2019-11-22] MEDS: Morphine ER 15 mg TAB ** extended release PO SCH ×3 (08:42→22:04)
[2019-11-22] MEDS: Aspirin EC 81 mg TAB.EC (enteric coated) PO SCH (08:42)
[2019-11-22] MEDS: DULoxetine DR 30 mg CAP PO SCH (08:43)
[2019-11-22] MEDS: Multivitamins/Minerals TAB PO SCH (08:43)
[2019-11-22] MEDS: Cholecalciferol (VIT D3) 1,000 unit TAB PO SCH (08:44)
[2019-11-22] MEDS: Fluticasone NASAL SPRAY 50MCG 16 gm SPRAY BTL BOTH NARES SCH (08:44)
[2019-11-22] MEDS: RIVASTIGMINE 9.5 MG TRANSDERM SCH (08:45)
[2019-11-22] MEDS ORDERED: Sodium Phosphate ADULT ENEMA 133 ML BTL PR ONE (11:37)
[2019-11-22 14:33] LABS: ABS Basophils 0.1 10^3/ul (0-0.2); ABS Eosinophils 0.3 10^3/ul (0-0.6); ABS Lymphocytes 2.1 10^3/ul (1.0-4.8); ABS Monocytes 0.6 10^3/ul (0-0.8); ABS Neutrophils 3.5 10^3/ul (1.5-7.7); Eosinophil % 4.3 %; Hematocrit 41 % (42-52); Hemoglobin 13.3 g/dL (14.0-18.0); Mean Corpuscular HGB Conc 33 g/dL (31-36); Mean Corpuscular Hemoglobin 29 pg (27-31); Mean Corpuscular Volume 88 fL (80-94); Mean Platelet Volume 8.2 fL (7.4-10.4); Platelet Count 173 10^3/uL (150-450); Red Blood Count 4.66 10^6 /uL (4.18-5.48); Red Cell Distribution Width 16 % (10-15); White Blood Count 6.5 10^3/uL (3.5-10.8)
[2019-11-22 14:34] LABS: Activated Partial Thrombo Time 19.6 seconds (26.0-38.0); INR 1.01 (0.82-1.09)
[2019-11-22 14:57] LABS: Urine Appearance Cloudy; Urine Bilirubin Negative (Negative); Urine Blood Negative (Negative); Urine Color Yellow; Urine Glucose Negative (Negative); Urine Ketones Negative (Negative); Urine Nitrite Negative (Negative); Urine Protein Negative (Negative); Urine Specific Gravity 1.016 (1.010-1.030); Urine Urobilinogen Negative (Negative)
[2019-11-22 16:26] LABS: BUN/Creatinine Ratio 24.6 (8-20); Calcium 9.6 mg/dL (8.6-10.3); EGFR African American 73.4 (>60); EGFR Non-African American 60.7 (>60); Potassium 4.7 mmol/L (3.5-5.0)
[2019-11-22] MEDS: Senna TAB 8.6 mg TAB PO SCH (22:04)
[2019-11-23] MEDS: Heparin 5000 UNITS/ML 1 mL VIAL SUBCUT SCH ×3 (05:25→21:42)
[2019-11-23] MEDS: Morphine ER 15 mg TAB ** extended release PO SCH ×3 (08:40→20:36)
[2019-11-23] MEDS: Cholecalciferol (VIT D3) 1,000 unit TAB PO SCH (08:41)
[2019-11-23] MEDS: Multivitamins/Minerals TAB PO SCH (08:41)
[2019-11-23] MEDS: DULoxetine DR 30 mg CAP PO SCH (08:41)
[2019-11-23] MEDS: Fluticasone NASAL SPRAY 50MCG 16 gm SPRAY BTL BOTH NARES SCH (08:42)
[2019-11-23] MEDS: RIVASTIGMINE 9.5 MG TRANSDERM SCH (08:43)
[2019-11-23] MEDS: NS 0.9% 1000 ml BAG 1,000 ML IV SCH ×2 (08:59→22:46)
[2019-11-23] MEDS: Senna TAB 8.6 mg TAB PO SCH (20:35)
[2019-11-23] MEDS ORDERED: hydrALAZINE 20 mg/ml 1 ML Vial IV IV SLOW PU ONE (23:38)
[2019-11-24] MEDS ORDERED: Labetalol IV 5 MG/ML 20 ml VIAL IV PUSH ONE ×2 (03:44→17:28)
[2019-11-24 05:44] LABS: Calcium 9.4 mg/dL (8.6-10.3)
[2019-11-24 05:49] LABS: BUN/Creatinine Ratio 21.4 (8-20); EGFR Non-African American 64.4 (>60)
[2019-11-24] MEDS ORDERED: Buffered Lidocaine 1% SYRIN 1 ml INTRADERM ONE (06:00)
[2019-11-24] MEDS ORDERED: Lactated Ringers 1000 ml BAG 1,000 ML IV SCH (06:00)
[2019-11-24] MEDS ORDERED: Bacitracin OINTMENT TUBE ONE (06:21)
[2019-11-24] MEDS ORDERED: ceFAZolin VIAL VIAL ONE (06:21)
[2019-11-24] MEDS ORDERED: Bacitracin INJECTION 50,000 UNITS ONE ×2 (06:21→07:58)
[2019-11-24] MEDS ORDERED: Propofol 10 MG/ML 20 ML BTL ONE ×3 (06:21→08:44)
[2019-11-24] MEDS ORDERED: fentaNYL 100 mcg/2 ml 50 MCG/ML VIAL ONE (06:21)
[2019-11-24] MEDS ORDERED: Lidocaine 2% PF 5 ML VIAL ONE (06:21)
[2019-11-24] MEDS ORDERED: Midazolam 2 mg/2 ml VIAL 1 mg/ml 2 ml VIAL (2 mg) ONE (06:21)
[2019-11-24] MEDS ORDERED: Vancomycin 1,000 MG VIAL ONE (06:21)
[2019-11-24] MEDS ORDERED: Lidocaine 1% w EPI 1:200,000 SDV 30 ML VIAL ONE (06:21)
[2019-11-24] MEDS ORDERED: Phenylephrine 40 mcg/mL 10mL (400mcg) SYRINGE ONE (06:30)
[2019-11-24] MEDS ORDERED: Phenylephrine IV 10 MG/ML 1 ml VIAL ONE (06:54)
[2019-11-24] MEDS ORDERED: ceFAZolin 2 GM in NS PREMIX 2 GM/100 ML BAG IVPB ONE (06:59)
[2019-11-24] MEDS ORDERED: ceFAZolin 2 GM PREMIX 2 GM/50 ML BAG IVPB ONE (07:00)
[2019-11-24] MEDS ORDERED: Succinylcholine 200 mg VIAL 20 mg/ml 10 ml VIAL (200 mg) ONE (07:17)
[2019-11-24] MEDS ORDERED: Thrombin 5,000 UNITS 1 APPLIC KIT - topical use - TOPICAL ONE (07:34)
[2019-11-24] MEDS ORDERED: HYDROmorphone 1 MG/1 ML SYRINGE ONE ×4 (10:40→13:48)
[2019-11-24] MEDS ORDERED: Naloxone 0.4 mg VIAL 0.4 mg/ml 1 ml VIAL IV PRN (10:59)
[2019-11-24] MEDS ORDERED: Acetaminophen IV 1 GM/100ML 100 ML ONE (11:25)
[2019-11-24] MEDS: HYDROmorphone 1 MG/1 ML SYRINGE IV PRN ×2 (12:35→12:45)
[2019-11-24] MEDS ORDERED: Magnesium Hydroxide LIQ 30 ML UDC PO PRN (12:39)
[2019-11-24] MEDS: HYDROmorphone 1 MG/1 ML SYRINGE IV SLOW PU PRN ×4 (13:00→14:13)
[2019-11-24] MEDS: Cholecalciferol (VIT D3) 1,000 unit TAB PO SCH (16:14)
[2019-11-24] MEDS: Fluticasone NASAL SPRAY 50MCG 16 gm SPRAY BTL BOTH NARES SCH (16:14)
[2019-11-24] MEDS: DULoxetine DR 30 mg CAP PO SCH (16:14)
[2019-11-24] MEDS: Morphine ER 15 mg TAB ** extended release PO SCH ×3 (16:15→21:35)
[2019-11-24] MEDS: Multivitamins/Minerals TAB PO SCH (16:15)
[2019-11-24] MEDS: Acetaminophen IV 1 GM/100ML 100 ML IVPB SCH ×2 (16:16→22:54)
[2019-11-24] MEDS: Enoxaparin 40 MG/0.4 ML SYR SUBCUT SCH (16:16)
[2019-11-24] MEDS: RIVASTIGMINE 9.5 MG TRANSDERM SCH (16:16)
[2019-11-24] MEDS: NS 0.9% 1000 ml BAG 1,000 ML IV SCH (16:35)
[2019-11-24] MEDS: hydrALAZINE 20 mg/ml 1 ML Vial IV IV SLOW PU PRN ×2 (17:02→23:00)
[2019-11-24] MEDS: Heparin 5000 UNITS/ML 1 mL VIAL SUBCUT SCH (17:51)
[2019-11-24] MEDS: ceFAZolin 2 GM PREMIX 2 GM/50 ML BAG IVPB SCH (18:16)
[2019-11-24] MEDS ORDERED: Furosemide 20 mg/2 ml IV VIAL IV SLOW PU ONE (18:53)
[2019-11-24] MEDS: Albuterol 2.5mg/3 ml (0.083%) NEB.SOLN INH SCH ×2 (19:53→22:58)
[2019-11-24] MEDS: Senna TAB 8.6 mg TAB PO SCH (21:35)
[2019-11-25] MEDS ORDERED: hydrALAZINE 20 mg/ml 1 ML Vial IV IV SLOW PU ONE (01:01)
[2019-11-25] MEDS: ceFAZolin 2 GM PREMIX 2 GM/50 ML BAG IVPB SCH ×3 (02:13→17:49)
[2019-11-25] MEDS: NS 0.9% 1000 ml BAG 1,000 ML IV SCH (02:13)
[2019-11-25] MEDS ORDERED: NS 0.9% 1000 ml BAG 1,000 ML IV SCH (03:21)
[2019-11-25] MEDS: Albuterol 2.5mg/3 ml (0.083%) NEB.SOLN INH SCH ×4 (03:29→16:10)
[2019-11-25 04:51] LABS: ABS Basophils 0.1 10^3/ul (0-0.2); ABS Lymphocytes 1.4 10^3/ul (1.0-4.8); ABS Monocytes 0.8 10^3/ul (0-0.8); ABS Neutrophils 8.9 10^3/ul (1.5-7.7); Eosinophil % 0.3 %; Hematocrit 35 % (42-52); Hemoglobin 12.1 g/dL (14.0-18.0); Lymphocyte % 12.7 %; Mean Corpuscular HGB Conc 34 g/dL (31-36); Mean Corpuscular Hemoglobin 28 pg (27-31); Mean Corpuscular Volume 82 fL (80-94); Mean Platelet Volume 7.6 fL (7.4-10.4); Platelet Count 186 10^3/uL (150-450); Red Blood Count 4.32 10^6 /uL (4.18-5.48); Red Cell Distribution Width 16 % (10-15); White Blood Count 11.2 10^3/uL (3.5-10.8)
[2019-11-25 05:07] LABS: Calcium 8.5 mg/dL (8.6-10.3); EGFR African American 79.6 (>60); EGFR Non-African American 65.8 (>60); Potassium 3.8 mmol/L (3.5-5.0)
[2019-11-25] MEDS: Acetaminophen IV 1 GM/100ML 100 ML IVPB SCH (06:16)
[2019-11-25] MEDS: Morphine ER 15 mg TAB ** extended release PO SCH ×2 (08:38→20:58)
[2019-11-25] MEDS ORDERED: Albuterol 2.5mg/3 ml (0.083%) NEB.SOLN INH PRN (09:01)
[2019-11-25] MEDS: Aspirin EC 81 mg TAB.EC (enteric coated) PO SCH (09:57)
[2019-11-25] MEDS: Multivitamins/Minerals TAB PO SCH (09:57)
[2019-11-25] MEDS: DULoxetine DR 30 mg CAP PO SCH (09:57)
[2019-11-25] MEDS: Cholecalciferol (VIT D3) 1,000 unit TAB PO SCH (09:58)
[2019-11-25] MEDS: RIVASTIGMINE 9.5 MG TRANSDERM SCH (10:04)
[2019-11-25] MEDS: Fluticasone NASAL SPRAY 50MCG 16 gm SPRAY BTL BOTH NARES SCH (10:04)
[2019-11-25] MEDS: Enoxaparin 40 MG/0.4 ML SYR SUBCUT SCH (13:45)
[2019-11-25] MEDS: Senna TAB 8.6 mg TAB PO SCH (20:58)
[2019-11-26] MEDS: ceFAZolin 2 GM PREMIX 2 GM/50 ML BAG IVPB SCH ×3 (01:33→17:50)
[2019-11-26 05:34] LABS: ABS Eosinophils 0.1 10^3/ul (0-0.6); ABS Lymphocytes 1.8 10^3/ul (1.0-4.8); ABS Monocytes 0.7 10^3/ul (0-0.8); ABS Neutrophils 6.9 10^3/ul (1.5-7.7); Eosinophil % 1.4 %; Hematocrit 34 % (42-52); Hemoglobin 11.6 g/dL (14.0-18.0); Lymphocyte % 18.8 %; Mean Corpuscular HGB Conc 34 g/dL (31-36); Mean Corpuscular Hemoglobin 28 pg (27-31); Mean Corpuscular Volume 82 fL (80-94); Mean Platelet Volume 8.3 fL (7.4-10.4); Nucleated Red Blood Cells % 0.1; Platelet Count 178 10^3/uL (150-450); Red Blood Count 4.16 10^6 /uL (4.18-5.48); Red Cell Distribution Width 16 % (10-15); White Blood Count 9.5 10^3/uL (3.5-10.8)
[2019-11-26 06:24] LABS: Calcium 8.8 mg/dL (8.6-10.3); Potassium 3.8 mmol/L (3.5-5.0)
[2019-11-26 06:30] LABS: BUN/Creatinine Ratio 21.4 (8-20); EGFR African American 74.1 (>60); EGFR Non-African American 61.3 (>60)
[2019-11-26] MEDS: Cholecalciferol (VIT D3) 1,000 unit TAB PO SCH (09:01)
[2019-11-26] MEDS: Aspirin EC 81 mg TAB.EC (enteric coated) PO SCH (09:01)
[2019-11-26] MEDS: Multivitamins/Minerals TAB PO SCH (09:02)
[2019-11-26] MEDS: DULoxetine DR 30 mg CAP PO SCH (09:02)
[2019-11-26] MEDS: Morphine ER 15 mg TAB ** extended release PO SCH ×2 (09:02→21:55)
[2019-11-26] MEDS: Fluticasone NASAL SPRAY 50MCG 16 gm SPRAY BTL BOTH NARES SCH (09:03)
[2019-11-26] MEDS: RIVASTIGMINE 9.5 MG TRANSDERM SCH (09:03)
[2019-11-26] MEDS: NS 0.9% 1000 ml BAG 1,000 ML IV SCH (09:15)
[2019-11-26] MEDS: Enoxaparin 40 MG/0.4 ML SYR SUBCUT SCH (12:30)
[2019-11-26] MEDS: Senna TAB 8.6 mg TAB PO SCH (21:55)
[2019-11-27] MEDS: NS 0.9% 1000 ml BAG 1,000 ML IV SCH ×2 (00:10→16:20)
[2019-11-27] MEDS: ceFAZolin 2 GM PREMIX 2 GM/50 ML BAG IVPB SCH ×2 (01:50→10:23)
[2019-11-27 05:28] LABS: ABS Basophils 0.1 10^3/ul (0-0.2); ABS Eosinophils 0.2 10^3/ul (0-0.6); ABS Lymphocytes 2.4 10^3/ul (1.0-4.8); ABS Monocytes 0.9 10^3/ul (0-0.8); ABS Neutrophils 6.1 10^3/ul (1.5-7.7); Eosinophil % 2.1 %; Hematocrit 31 % (42-52); Hemoglobin 10.6 g/dL (14.0-18.0); Lymphocyte % 24.5 %; Mean Corpuscular HGB Conc 34 g/dL (31-36); Mean Corpuscular Hemoglobin 29 pg (27-31); Mean Corpuscular Volume 84 fL (80-94); Mean Platelet Volume 7.9 fL (7.4-10.4); Platelet Count 162 10^3/uL (150-450); Red Blood Count 3.72 10^6 /uL (4.18-5.48); Red Cell Distribution Width 16 % (10-15); White Blood Count 9.6 10^3/uL (3.5-10.8)
[2019-11-27 06:34] LABS: Calcium 8.6 mg/dL (8.6-10.3); Potassium 3.7 mmol/L (3.5-5.0)
[2019-11-27 06:40] LABS: BUN/Creatinine Ratio 20.4 (8-20); EGFR African American 85.9 (>60)
[2019-11-27] MEDS: Morphine ER 15 mg TAB ** extended release PO SCH ×3 (09:37→18:04)
[2019-11-27] MEDS: Cholecalciferol (VIT D3) 1,000 unit TAB PO SCH (09:58)
[2019-11-27] MEDS: Multivitamins/Minerals TAB PO SCH (09:59)
[2019-11-27] MEDS: DULoxetine DR 30 mg CAP PO SCH (09:59)
[2019-11-27] MEDS: Aspirin EC 81 mg TAB.EC (enteric coated) PO SCH (10:00)
[2019-11-27] MEDS: Fluticasone NASAL SPRAY 50MCG 16 gm SPRAY BTL BOTH NARES SCH (10:01)
[2019-11-27] MEDS: RIVASTIGMINE 9.5 MG TRANSDERM SCH (10:04)
[2019-11-27] MEDS ORDERED: Polyethylene Glycol 3350 17 GM PACKET PO ONE (10:37)
[2019-11-27] MEDS: Enoxaparin 40 MG/0.4 ML SYR SUBCUT SCH (14:52)
[2019-11-27] MEDS: Senna TAB 8.6 mg TAB PO SCH (21:54)
[2019-11-28] MEDS: Morphine ER 15 mg TAB ** extended release PO SCH ×3 (04:18→20:01)
[2019-11-28] MEDS: NS 0.9% 1000 ml BAG 1,000 ML IV SCH ×2 (04:20→21:54)
[2019-11-28] MEDS: Polyethylene Glycol 3350 17 GM PACKET PO SCH (08:53)
[2019-11-28] MEDS: Multivitamins/Minerals TAB PO SCH (08:53)
[2019-11-28] MEDS: Cholecalciferol (VIT D3) 1,000 unit TAB PO SCH (08:53)
[2019-11-28] MEDS: Aspirin EC 81 mg TAB.EC (enteric coated) PO SCH (08:54)
[2019-11-28] MEDS: DULoxetine DR 30 mg CAP PO SCH (08:54)
[2019-11-28] MEDS: Fluticasone NASAL SPRAY 50MCG 16 gm SPRAY BTL BOTH NARES SCH (08:58)
[2019-11-28] MEDS: RIVASTIGMINE 9.5 MG TRANSDERM SCH (09:07)
[2019-11-28] MEDS: Enoxaparin 40 MG/0.4 ML SYR SUBCUT SCH (13:35)
[2019-11-28] MEDS: Senna TAB 8.6 mg TAB PO SCH (20:01)
[2019-11-29] MEDS: Morphine ER 15 mg TAB ** extended release PO SCH ×3 (03:20→19:49)
[2019-11-29] MEDS: hydrALAZINE 20 mg/ml 1 ML Vial IV IV SLOW PU PRN (07:56)
[2019-11-29] MEDS: Aspirin EC 81 mg TAB.EC (enteric coated) PO SCH (09:39)
[2019-11-29] MEDS: Multivitamins/Minerals TAB PO SCH (09:41)
[2019-11-29] MEDS: Cholecalciferol (VIT D3) 1,000 unit TAB PO SCH (09:44)
[2019-11-29] MEDS: RIVASTIGMINE 9.5 MG TRANSDERM SCH (09:52)
[2019-11-29] MEDS: Polyethylene Glycol 3350 17 GM PACKET PO SCH (09:53)
[2019-11-29] MEDS: Fluticasone NASAL SPRAY 50MCG 16 gm SPRAY BTL BOTH NARES SCH (09:54)
[2019-11-29] MEDS: DULoxetine DR 30 mg CAP PO SCH (09:54)
[2019-11-29] MEDS: NS 0.9% 1000 ml BAG 1,000 ML IV SCH (13:13)
[2019-11-29] MEDS: Enoxaparin 40 MG/0.4 ML SYR SUBCUT SCH (13:13)
[2019-11-30] MEDS: Morphine ER 15 mg TAB ** extended release PO SCH ×2 (02:54→11:08)
[2019-11-30] MEDS: hydrALAZINE 20 mg/ml 1 ML Vial IV IV SLOW PU PRN (04:05)
[2019-11-30] MEDS: Cholecalciferol (VIT D3) 1,000 unit TAB PO SCH (08:48)
[2019-11-30] MEDS: Multivitamins/Minerals TAB PO SCH (08:48)
[2019-11-30] MEDS: DULoxetine DR 30 mg CAP PO SCH (08:51)
[2019-11-30] MEDS: Aspirin EC 81 mg TAB.EC (enteric coated) PO SCH (08:51)
[2019-11-30] MEDS: RIVASTIGMINE 9.5 MG TRANSDERM SCH (08:54)
[2019-11-30] MEDS: Fluticasone NASAL SPRAY 50MCG 16 gm SPRAY BTL BOTH NARES SCH (09:14)
[2019-11-30 11:44] VITALS: BP 164/61
[2019-11-30] MEDS: Enoxaparin 40 MG/0.4 ML SYR SUBCUT SCH (12:09)
== END 2019-11-30 13:15 | DRG 472 ==
LOC: ED 12:04 → MED 18:14 → SSU 11-24 14:52 → ICU 11-25 00:59 → SSU 11-25 13:10
PROVIDERS: ADMIT Internal Medicine; ATTEND Internal Medicine

== ENCOUNTER 2020-08-10 07:01 | Inpatient (IN) ==
[~2020-08-10 07:01] MED LIST changes: -Acetaminophen TAB* 325 MG PO PRN; +Buffered Lidocaine 1% SYRIN 1 ml INTRADERM ONE; -Buffered Lidocaine 1% SYRIN* 1 ML/SYRINGE INTRADERM ONE; -DiMENhydriNATE IV* 50 MG/ML VIAL IV PUSH PRN; -Famotidine IV* 10 MG/ML 2 ML (20 mg) IV ONE; -Famotidine IV* 10 MG/ML 2 ML (20 mg) ONE; -Iohexol 180 (CONTRAST) 10 ML SDV IV ONE; -Lactated Ringers 1000 ML Bag* 1,000 ML IV SCH; +Lactated Ringers 1000 ml BAG 1,000 ML IV SCH; -Levalbuterol 0.63MG/3ML NEB* UNIT OF USE INH PRN; -Lidocaine 2% PF * 5 ML VIAL ONE; -Midazolam* 1 MG/ML 2 ML VIAL (2 MG) ONE; -Naloxone* 0.4 MG/ML 1 ML VIAL IV PRN; -Ondansetron INJ* 2 MG/ML VIAL ONE; -PROCHLORPERAZINE INJ 5 MG/ML 2 ML VIAL IV PRN; -Propofol* 10 MG/ML 20 ML BTL ONE; +Sodium Citrate/Citric Acid LIQ 15 ML UDC PO ONE; -cefTRIAXone(*) 2 GM ADDV.VIAL IVPB ONE; -fentaNYL* 50 MCG/ML 2 ML VIAL (100 MCG VIAL) IV PRN; -fentaNYL* 50 MCG/ML 2 ML VIAL (100 MCG VIAL) ONE
[2020-08-10] MEDS ORDERED: ceFAZolin 2 GM PREMIX 2 GM/50 ML BAG ONE (07:26)
[2020-08-10] MEDS ORDERED: Sodium Citrate/Citric Acid LIQ 15 ML UDC ONE (07:26)
[2020-08-10] MEDS ORDERED: Lidocaine 2% PF 5 ML VIAL ONE (08:08)
[2020-08-10] MEDS ORDERED: Ketamine HCL 50 mg/ml 10 ml VIAL (500 MG) ONE (08:08)
[2020-08-10] MEDS ORDERED: Rocuronium 50 mg VIAL 10 mg/ml 5 ml VIAL (50 mg) ONE ×2 (08:08→10:13)
[2020-08-10] MEDS ORDERED: fentaNYL 250 mcg/5 ml 50 MCG/ML 5 ml VIAL (250 MCG) ONE (08:08)
[2020-08-10] MEDS ORDERED: Propofol 10 MG/ML 20 ML BTL ONE (08:08)
[2020-08-10] MEDS ORDERED: Bupivacaine 0.5% SDV PF 30ML VIAL ONE (08:33)
[2020-08-10] MEDS ORDERED: Vancomycin 1,000 MG VIAL ONE (08:33)
[2020-08-10] MEDS ORDERED: Bacitracin INJECTION 50,000 UNITS ONE (08:34)
[2020-08-10] MEDS ORDERED: ceFAZolin VIAL VIAL ONE (08:36)
[2020-08-10] MEDS ORDERED: Thrombin 5,000 UNITS 1 APPLIC KIT - topical use - TOPICAL ONE (09:27)
[2020-08-10] MEDS ORDERED: Gelfoam 12-7 ADSORBABL SPONGE ONE (09:28)
[2020-08-10] MEDS ORDERED: Ondansetron 4 mg VIAL 2 MG/ML 2 ml VIAL IV PRN (09:32)
[2020-08-10] MEDS ORDERED: fentaNYL 100 mcg/2 ml 50 MCG/ML VIAL IV PRN (09:32)
[2020-08-10] MEDS ORDERED: DiMENhydriNATE IV 50 mg/ml 1 ml VIAL IV PUSH PRN (09:32)
[2020-08-10] MEDS ORDERED: Naloxone 0.4 mg VIAL 0.4 mg/ml 1 ml VIAL IV PRN (09:32)
[2020-08-10] MEDS ORDERED: Acetaminophen IV 1 GM/100ML 1,000 MG/100 ML VIAL IVPB PRN (09:32)
[2020-08-10] MEDS ORDERED: Ondansetron 4 mg VIAL 2 MG/ML 2 ml VIAL ONE (10:38)
[2020-08-10] MEDS ORDERED: Dexamethasone IV 4 MG/ML VIAL 1 ml VIAL ONE (10:38)
[2020-08-10] MEDS ORDERED: HYDROmorphone 1 MG/1 ML SYRINGE ONE ×2 (11:38→12:05)
[2020-08-10] MEDS ORDERED: Bacitracin OINTMENT TUBE ONE (11:39)
[2020-08-10] MEDS ORDERED: Acetaminophen IV 1 GM/100ML 100 ML ONE ×2 (11:40→11:42)
[2020-08-10] MEDS ORDERED: Phenylephrine IV 10 MG/ML 1 ml VIAL ONE (11:42)
[2020-08-10] MEDS ORDERED: EPHEDrine (Pressors) 50 MG/ML VIAL ONE (11:42)
[2020-08-10] MEDS: HYDROmorphone 1 MG/1 ML SYRINGE IV PRN ×3 (12:06→12:27)
[2020-08-10] MEDS ORDERED: Polyethylene Glycol 3350 17 GM PACKET PO PRN (12:07)
[2020-08-10] MEDS ORDERED: Morphine 2 MG/ML SYRINGE IV PRN (12:07)
[2020-08-10] MEDS: Acetaminophen IV 1 GM/100ML 100 ML IVPB SCH ×2 (12:38→21:33)
[2020-08-10] MEDS: NS 0.9% 1000 ml BAG 1,000 ML IV SCH (14:35)
[2020-08-10] MEDS: ceFAZolin 2 GM PREMIX 2 GM/50 ML BAG IVPB SCH (17:36)
[2020-08-10] MEDS: RIVASTIGMINE 9.5 MG TRANSDERM SCH (18:00)
[2020-08-10] MEDS: RIVASTIGMINE REMOVE PATCH OFF SCH (18:02)
[2020-08-10] MEDS: Magnesium Hydroxide LIQ 30 ML UDC PO SCH (21:28)
[2020-08-11] MEDS: ceFAZolin 2 GM PREMIX 2 GM/50 ML BAG IVPB SCH ×3 (02:31→18:17)
[2020-08-11] MEDS: NS 0.9% 1000 ml BAG 1,000 ML IV SCH (03:35)
[2020-08-11] MEDS: Acetaminophen IV 1 GM/100ML 100 ML IVPB SCH (04:47)
[2020-08-11] MEDS: Enoxaparin 40 MG/0.4 ML SYR SUBCUT SCH (09:05)
[2020-08-11] MEDS: DULoxetine DR 30 mg CAP PO SCH (09:11)
[2020-08-11] MEDS: Cholecalciferol (VIT D3) 1,000 unit TAB PO SCH (09:11)
[2020-08-11] MEDS: Multivitamins/Minerals TAB PO SCH (09:13)
[2020-08-11] MEDS: Magnesium Hydroxide LIQ 30 ML UDC PO SCH ×2 (09:15→21:59)
[2020-08-11] MEDS: RIVASTIGMINE 9.5 MG TRANSDERM SCH (18:17)
[2020-08-11] MEDS: RIVASTIGMINE REMOVE PATCH OFF SCH (18:20)
[2020-08-12] MEDS ORDERED: hydrALAZINE 20 mg/ml 1 ML Vial IV IV SLOW PU PRN (00:17)
[2020-08-12] MEDS ORDERED: hydrALAZINE 20 mg/ml 1 ML Vial IV IV SLOW PU ONE ×2 (00:53→01:50)
[2020-08-12] MEDS ORDERED: Labetalol IV 5 MG/ML 20 ml VIAL IV PRN (02:52)
[2020-08-12] MEDS ORDERED: Labetalol IV 5 MG/ML 20 ml VIAL IV PUSH ONE (03:00)
[2020-08-12] MEDS: ceFAZolin 2 GM PREMIX 2 GM/50 ML BAG IVPB SCH ×3 (03:34→17:46)
[2020-08-12 06:02] LABS: Mean Platelet Volume 8.5 fL (7.4-10.4); Platelet Count 121 10^3/uL (150-450)
[2020-08-12 06:04] LABS: ABS Lymphocytes 2.2 10^3/ul (1.0-4.8); ABS Monocytes 1.2 10^3/ul (0-0.8); ABS Neutrophils 5.9 10^3/ul (1.5-7.7); Eosinophil % 0.5 %; Hematocrit 34 % (42-52); Hemoglobin 11.3 g/dL (14.0-18.0); Mean Corpuscular HGB Conc 34 g/dL (31-36); Mean Corpuscular Hemoglobin 27 pg (27-31); Mean Corpuscular Volume 81 fL (80-94); Mean Platelet Volume 8.6 fL (7.4-10.4); Platelet Count 124 10^3/uL (150-450); Red Blood Count 4.16 10^6 /uL (4.18-5.48); Red Cell Distribution Width 17 % (10-15); White Blood Count 9.4 10^3/uL (3.5-10.8)
[2020-08-12 06:19] LABS: EGFR African American 69.8 (>60); EGFR Non-African American 57.7 (>60)
[2020-08-12 06:20] LABS: Calcium 8.7 mg/dL (8.6-10.3); EGFR African American 72.5 (>60); EGFR Non-African American 59.9 (>60); Potassium 3.9 mmol/L (3.5-5.0)
[2020-08-12] MEDS: Cholecalciferol (VIT D3) 1,000 unit TAB PO SCH (09:00)
[2020-08-12] MEDS: DULoxetine DR 30 mg CAP PO SCH (09:03)
[2020-08-12] MEDS: Multivitamins/Minerals TAB PO SCH (09:03)
[2020-08-12] MEDS: Magnesium Hydroxide LIQ 30 ML UDC PO SCH ×2 (09:05→21:23)
[2020-08-12] MEDS: Enoxaparin 40 MG/0.4 ML SYR SUBCUT SCH (09:07)
[2020-08-12] MEDS: RIVASTIGMINE 9.5 MG TRANSDERM SCH (17:44)
[2020-08-12] MEDS: RIVASTIGMINE REMOVE PATCH OFF SCH (17:46)
[2020-08-13] MEDS: ceFAZolin 2 GM PREMIX 2 GM/50 ML BAG IVPB SCH ×3 (02:02→17:51)
[2020-08-13 04:18] LABS: ABS Eosinophils 0.1 10^3/ul (0-0.6); ABS Lymphocytes 1.8 10^3/ul (1.0-4.8); ABS Monocytes 0.8 10^3/ul (0-0.8); ABS Neutrophils 4.4 10^3/ul (1.5-7.7); Eosinophil % 1.8 %; Hematocrit 33 % (42-52); Hemoglobin 11.1 g/dL (14.0-18.0); Lymphocyte % 25.4 %; Mean Corpuscular HGB Conc 33 g/dL (31-36); Mean Corpuscular Hemoglobin 27 pg (27-31); Mean Corpuscular Volume 82 fL (80-94); Mean Platelet Volume 8.2 fL (7.4-10.4); Nucleated Red Blood Cells % 0.1; Platelet Count 110 10^3/uL (150-450); Red Blood Count 4.07 10^6 /uL (4.18-5.48); Red Cell Distribution Width 16 % (10-15); White Blood Count 7.2 10^3/uL (3.5-10.8)
[2020-08-13 04:32] LABS: Calcium 8.7 mg/dL (8.6-10.3); EGFR African American 61.1 (>60); EGFR Non-African American 50.5 (>60); Potassium 3.8 mmol/L (3.5-5.0)
[2020-08-13] MEDS: DULoxetine DR 30 mg CAP PO SCH (08:46)
[2020-08-13] MEDS: Cholecalciferol (VIT D3) 1,000 unit TAB PO SCH (08:46)
[2020-08-13] MEDS: Multivitamins/Minerals TAB PO SCH (08:47)
[2020-08-13] MEDS: Enoxaparin 40 MG/0.4 ML SYR SUBCUT SCH (08:48)
[2020-08-13] MEDS: Magnesium Hydroxide LIQ 30 ML UDC PO SCH ×2 (10:43→20:54)
[2020-08-13] MEDS ORDERED: Dextrose 50% Syringe 50 ml 25 GM/50 ML SYRINGE IV PUSH PRN (14:12)
[2020-08-13] MEDS: RIVASTIGMINE 9.5 MG TRANSDERM SCH (17:51)
[2020-08-13] MEDS: RIVASTIGMINE REMOVE PATCH OFF SCH (19:16)
[2020-08-14] MEDS: ceFAZolin 2 GM PREMIX 2 GM/50 ML BAG IVPB SCH ×2 (02:12→10:04)
[2020-08-14 06:57] LABS: Calcium 8.9 mg/dL (8.6-10.3); EGFR African American 61.1 (>60); EGFR Non-African American 50.5 (>60)
[2020-08-14] MEDS: Enoxaparin 40 MG/0.4 ML SYR SUBCUT SCH (08:42)
[2020-08-14] MEDS: Cholecalciferol (VIT D3) 1,000 unit TAB PO SCH (08:43)
[2020-08-14] MEDS: Multivitamins/Minerals TAB PO SCH (08:43)
[2020-08-14] MEDS: DULoxetine DR 30 mg CAP PO SCH (08:44)
[2020-08-14] MEDS: Magnesium Hydroxide LIQ 30 ML UDC PO SCH ×2 (08:45→21:25)
[2020-08-14] MEDS: RIVASTIGMINE 9.5 MG TRANSDERM SCH (16:50)
[2020-08-14] MEDS: RIVASTIGMINE REMOVE PATCH OFF SCH (16:53)
[2020-08-15] MEDS: Multivitamins/Minerals TAB PO SCH (08:24)
[2020-08-15] MEDS: DULoxetine DR 30 mg CAP PO SCH (08:24)
[2020-08-15] MEDS: Cholecalciferol (VIT D3) 1,000 unit TAB PO SCH (08:24)
[2020-08-15] MEDS: Enoxaparin 40 MG/0.4 ML SYR SUBCUT SCH (08:26)
[2020-08-15] MEDS: Magnesium Hydroxide LIQ 30 ML UDC PO SCH ×2 (08:26→20:19)
[2020-08-15] MEDS: RIVASTIGMINE REMOVE PATCH OFF SCH (16:59)
[2020-08-15] MEDS: RIVASTIGMINE 9.5 MG TRANSDERM SCH (17:00)
[2020-08-16] MEDS: Magnesium Hydroxide LIQ 30 ML UDC PO SCH (09:19)
[2020-08-16] MEDS: Enoxaparin 40 MG/0.4 ML SYR SUBCUT SCH (09:19)
[2020-08-16] MEDS: Multivitamins/Minerals TAB PO SCH (09:21)
[2020-08-16] MEDS: DULoxetine DR 30 mg CAP PO SCH (09:21)
[2020-08-16] MEDS: Cholecalciferol (VIT D3) 1,000 unit TAB PO SCH (09:21)
[2020-08-16 11:41] VITALS: BP 140/59
== END 2020-08-16 14:40 | DRG 519 ==
LOC: AA 07:01 → SSU 13:17
PROVIDERS: ADMIT Neurological Surgery; ATTEND Neurological Surgery

== ENCOUNTER 2021-06-30 13:35 | Inpatient (IN) ==
[2021-06-30 14:03] LABS: ABS Basophils 0.1 10^3/ul (0-0.2); ABS Eosinophils 0.3 10^3/ul (0-0.6); ABS Lymphocytes 2.8 10^3/ul (1.0-4.8); ABS Monocytes 0.4 10^3/ul (0-0.8); ABS Neutrophils 11.7 10^3/ul (1.5-7.7); Eosinophil % 2.3 %; Hematocrit 46 % (42-52); Hemoglobin 14.6 g/dL (14.0-18.0); Lymphocyte % 18.4 %; Mean Corpuscular HGB Conc 32 g/dL (31-36); Mean Corpuscular Hemoglobin 26 pg (27-31); Mean Corpuscular Volume 81 fL (80-94); Mean Platelet Volume 9.1 fL (7.4-10.4); Nucleated Red Blood Cells % 0.1; Platelet Count 164 10^3/uL (150-450); Red Blood Count 5.72 10^6 /uL (4.18-5.48); Red Cell Distribution Width 17 % (10-15); White Blood Count 15.3 10^3/uL (3.5-10.8)
[2021-06-30 14:10] LABS: INR 1.33 (0.86-1.15)
[2021-06-30 14:43] LABS: Albumin 4.2 g/dL (3.2-5.2); Albumin/Globulin Ratio 1.8 (1-3); Calcium 9.2 mg/dL (8.6-10.3); Globulin 2.3 g/dL (2-4); Potassium 4.7 mmol/L (3.5-5.0); Total Bilirubin 0.9 mg/dL (0.2-1.0); Total Protein 6.5 g/dL (6.4-8.9); eGFR CKD-EPI 39.8 (>60)
[2021-06-30 15:21] LABS: High Sensitivity Troponin 1 Hr 17 pg/mL (<20)
[2021-06-30] MEDS ORDERED: Iodixanol (CONTRAST) 320 MG/ML 100 ML SDV IV ONE (15:23)
[2021-06-30] MEDS ORDERED: Lactated Ringers 1000 ml BAG 1,000 ML IV ONE ×3 (16:42→21:39)
[2021-06-30 20:32] LABS: C Reactive Protein 1.32 mg/L (<8.01)
[2021-06-30] MEDS ORDERED: Ondansetron 4 mg VIAL 2 MG/ML 2 ml VIAL IV PRN (21:11)
[2021-06-30] MEDS ORDERED: Dextrose 50% Syringe 50 ml 25 GM/50 ML SYRINGE IV PUSH PRN (21:23)
[2021-06-30] MEDS ORDERED: Lactated Ringers 1000 ml BAG 1,000 ML IV SCH ×2 (22:00→22:58)
[2021-06-30] MEDS ORDERED: Heparin 5000 UNITS/ML 1 mL VIAL SUBCUT SCH (22:00)
[2021-06-30] MEDS ORDERED: cefTRIAXone 1 gm/50 mL D5W 1 GM/50 ML BAG IV ONE (22:01)
[2021-06-30] MEDS ORDERED: metroNIDAZOLE IV 500 MG/100ML 500 MG/100 ML BAG IVPB ONE (22:01)
[2021-06-30] MEDS ORDERED: Piperacillin/Tazobac ADVAN 3.375 GM in NS 0.9% 100 ml BAG 100 ML IVPB ONE (22:02)
[2021-07-01 00:40] LABS: Magnesium 2.3 mg/dL (1.9-2.7)
[2021-07-01 00:52] LABS: Urine Appearance Clear; Urine Bilirubin Negative (Negative); Urine Blood Negative (Negative); Urine Color Amber; Urine Glucose Negative (Negative); Urine Ketones 1+ (Negative); Urine Nitrite Negative (Negative); Urine Protein 1+(30 mg/dL) (Negative); Urine Specific Gravity 1.044 (1.002-1.030); Urine Urobilinogen Positive (Negative)
[2021-07-01 01:00] LABS: Urine Bacteria Absent (Absent); Urine Red Blood Cell Absent (Absent); Urine Squamous Epithelial Cell Present (Absent); Urine White Blood Cell 1+(6-10/hpf) (Absent)
[2021-07-01] MEDS ORDERED: Lactated Ringers 1000 ml BAG 1,000 ML IV SCH ×2 (03:30→10:57)
[2021-07-01 05:40] LABS: Hematocrit 40 % (42-52); Hemoglobin 13.3 g/dL (14.0-18.0); Mean Corpuscular HGB Conc 33 g/dL (31-36); Mean Corpuscular Hemoglobin 26 pg (27-31); Mean Corpuscular Volume 78 fL (80-94); Red Blood Count 5.15 10^6 /uL (4.18-5.48); Red Cell Distribution Width 17 % (10-15); White Blood Count 13.7 10^3/uL (3.5-10.8)
[2021-07-01 06:45] LABS: ABS Basophils 0.1 10^3/ul (0-0.2); ABS Lymphocytes 1.4 10^3/ul (1.0-4.8); ABS Monocytes 1.5 10^3/ul (0-0.8); ABS Neutrophils 10.7 10^3/ul (1.5-7.7); Mean Platelet Volume 8.6 fL (7.4-10.4); Nucleated Red Blood Cells % 0.1; Platelet Count 135 10^3/uL (150-450); RBC Morphology Normal (Normal)
[2021-07-01 06:53] LABS: TSH Ultra Thyroid Stim Horm 0.54 mcIU/mL (0.34-5.60)
[2021-07-01 07:42] LABS: Calcium 8.6 mg/dL (8.6-10.3); Potassium 4.5 mmol/L (3.5-5.0)
[2021-07-01 07:48] LABS: eGFR CKD-EPI 36.6 (>60)
[2021-07-01] MEDS ORDERED: Piperacillin/Tazobac ADVAN 3.375 GM in NS 0.9% 100 ml BAG 100 ML IV ONE (08:28)
[2021-07-01] MEDS ORDERED: Azithromycin 500 mg/250 ml NS 500 MG/250 ML BAG IVPB SCH (09:00)
[2021-07-01] MEDS ORDERED: Zosyn per Pharmacy NOTE FOLLOW UP SCH (09:00)
[2021-07-01 09:38] LABS: Hematocrit 37 % (42-52); Hemoglobin 12.1 g/dL (14.0-18.0)
[2021-07-01] MEDS: DULoxetine DR 30 mg CAP PO SCH (09:56)
[2021-07-01] MEDS: Aspirin EC 81 mg TAB.EC (enteric coated) PO SCH (09:56)
[2021-07-01] MEDS ORDERED: Lactated Ringers 1000 ml BAG 1,000 ML IV ONE (10:56)
[2021-07-01] MEDS ORDERED: metroNIDAZOLE IV 500 MG/100ML 500 MG/100 ML BAG IVPB SCH (12:00)
[2021-07-01] MEDS: ZOSYN 3.375 GM Q8H per EXTENDED INFUSION IV SCH ×2 (13:43→20:56)
[2021-07-01] MEDS: Insulin GLARGINE 100 un/ml 10 ml VIAL SUBCUT SCH (20:54)
[2021-07-01] MEDS: Heparin 5000 UNITS/ML 1 mL VIAL SUBCUT SCH (20:54)
[2021-07-01] MEDS: RIVASTIGMINE 9.5 MG TRANSDERM SCH (20:59)
[2021-07-01] MEDS ORDERED: cefTRIAXone 1 gm/50 mL D5W 1 GM/50 ML BAG IV SCH (22:00)
[2021-07-02 04:44] LABS: ABS Lymphocytes 1.3 10^3/ul (1.0-4.8); ABS Monocytes 0.8 10^3/ul (0-0.8); ABS Neutrophils 7.7 10^3/ul (1.5-7.7); Eosinophil % 0.3 %; Hematocrit 33 % (42-52); Hemoglobin 10.9 g/dL (14.0-18.0); Lymphocyte % 12.8 %; Mean Corpuscular HGB Conc 33 g/dL (31-36); Mean Corpuscular Hemoglobin 26 pg (27-31); Mean Corpuscular Volume 79 fL (80-94); Mean Platelet Volume 8.7 fL (7.4-10.4); Platelet Count 87 10^3/uL (150-450); Red Blood Count 4.15 10^6 /uL (4.18-5.48); Red Cell Distribution Width 17 % (10-15); White Blood Count 9.8 10^3/uL (3.5-10.8)
[2021-07-02 05:07] LABS: Anion Gap 8 mmol/L (2-11); Blood Urea Nitrogen 29 mg/dL (6-24); CO2 Carbon Dioxide 20 mmol/L (22-32); Calcium 8.1 mg/dL (8.6-10.3); Chloride 111 mmol/L (101-111); Glucose 110 mg/dL (70-100); Magnesium 1.6 mg/dL (1.9-2.7); Potassium 3.9 mmol/L (3.5-5.0); Sodium 139 mmol/L (135-145); eGFR CKD-EPI 41.5 (>60)
[2021-07-02] MEDS: ZOSYN 3.375 GM Q8H per EXTENDED INFUSION IV SCH ×3 (05:16→21:19)
[2021-07-02] MEDS: Heparin 5000 UNITS/ML 1 mL VIAL SUBCUT SCH ×2 (07:56→22:57)
[2021-07-02] MEDS: DULoxetine DR 30 mg CAP PO SCH (07:58)
[2021-07-02] MEDS: Aspirin EC 81 mg TAB.EC (enteric coated) PO SCH (07:58)
[2021-07-02] MEDS ORDERED: Magnesium Sulf 4 GM/100 ML IV 4,000 MG/100 ML BAG IVPB ONE (08:00)
[2021-07-02] MEDS: Lactated Ringers 1000 ml BAG 1,000 ML IV SCH ×3 (11:29→17:46)
[2021-07-02 14:33] LABS: Total Iron Binding Capacity 308 mcg/dL (250-450); Transferrin 220 mg/dL (203-362)
[2021-07-02 14:34] LABS: % Iron Saturation 6 % (15-55); Iron < 20 ug/dL (50-212); Unsaturated Iron Binding 288 ug/dL
[2021-07-02 14:52] LABS: Ferritin 44.2 ng/mL (24-336)
[2021-07-02 16:55] LABS: Hematocrit 31 % (42-52); Hemoglobin 10.2 g/dL (14.0-18.0); Mean Corpuscular HGB Conc 33 g/dL (31-36); Mean Corpuscular Hemoglobin 26 pg (27-31); Mean Corpuscular Volume 79 fL (80-94); Mean Platelet Volume 8.5 fL (7.4-10.4); Platelet Count 94 10^3/uL (150-450); Red Blood Count 3.96 10^6 /uL (4.18-5.48); Red Cell Distribution Width 17 % (10-15); White Blood Count 9.5 10^3/uL (3.5-10.8)
[2021-07-02 17:41] LABS: ABS Eosinophils 0.1 10^3/ul (0-0.6); ABS Lymphocytes 1.4 10^3/ul (1.0-4.8); ABS Monocytes 0.6 10^3/ul (0-0.8); ABS Neutrophils 7.4 10^3/ul (1.5-7.7); Eosinophil % 1.1 %; Lymphocyte % 14.6 %
[2021-07-02] MEDS: RIVASTIGMINE 9.5 MG TRANSDERM SCH (21:20)
[2021-07-03] MEDS: Insulin GLARGINE 100 un/ml 10 ml VIAL SUBCUT SCH ×2 (00:49→21:27)
[2021-07-03 01:29] LABS: Hematocrit 30 % (42-52); Hemoglobin 9.9 g/dL (14.0-18.0)
[2021-07-03] MEDS: ZOSYN 3.375 GM Q8H per EXTENDED INFUSION IV SCH (06:03)
[2021-07-03 07:10] LABS: Hematocrit 30 % (42-52); Mean Corpuscular HGB Conc 33 g/dL (31-36); Mean Corpuscular Hemoglobin 26 pg (27-31); Mean Corpuscular Volume 79 fL (80-94); Mean Platelet Volume 9.9 fL (7.4-10.4); Platelet Count 125 10^3/uL (150-450); Red Blood Count 3.79 10^6 /uL (4.18-5.48); Red Cell Distribution Width 17 % (10-15)
[2021-07-03 07:29] LABS: Blood Urea Nitrogen 22 mg/dL (6-24); CO2 Carbon Dioxide 22 mmol/L (22-32); Calcium 7.8 mg/dL (8.6-10.3); Chloride 109 mmol/L (101-111); Glucose 94 mg/dL (70-100); Sodium 140 mmol/L (135-145); eGFR CKD-EPI 53.5 (>60)
[2021-07-03 07:31] LABS: Anion Gap 9 mmol/L (2-11)
[2021-07-03 07:39] LABS: Carcinoembryonic Antigen 1.7 ng/mL (0.1-5.0)
[2021-07-03 09:08] LABS: Magnesium 1.8 mg/dL (1.9-2.7); Potassium Redraw 3.7 mmol/L (3.5-5.0)
[2021-07-03] MEDS: DULoxetine DR 30 mg CAP PO SCH (09:40)
[2021-07-03] MEDS: Aspirin EC 81 mg TAB.EC (enteric coated) PO SCH (09:41)
[2021-07-03] MEDS: Heparin 5000 UNITS/ML 1 mL VIAL SUBCUT SCH ×2 (09:42→21:18)
[2021-07-03] MEDS ORDERED: Magnesium Sulfate 2 gm BAG 2 GM/50 ML BAG IVPB ONE (10:06)
[2021-07-03] MEDS: cefTRIAXone 2 GM ADDV.VIAL 2 GM in NS 0.9% 100 ml BAG 100 ML IV SCH (13:23)
[2021-07-03] MEDS: RIVASTIGMINE 9.5 MG TRANSDERM SCH (21:18)
[2021-07-03] MEDS ORDERED: PEG 3000 GI LAVAGE 1 GALLON PO ONE (23:30)
[2021-07-04] MEDS: Lactated Ringers 1000 ml BAG 1,000 ML IV SCH ×2 (00:32→18:27)
[2021-07-04 07:14] LABS: ABS Eosinophils 0.2 10^3/ul (0-0.6); ABS Lymphocytes 1.1 10^3/ul (1.0-4.8); ABS Monocytes 0.5 10^3/ul (0-0.8); ABS Neutrophils 4.1 10^3/ul (1.5-7.7); Eosinophil % 3.8 %; Hematocrit 30 % (42-52); Hemoglobin 10.1 g/dL (14.0-18.0); Lymphocyte % 18.2 %; Mean Corpuscular HGB Conc 33 g/dL (31-36); Mean Corpuscular Hemoglobin 26 pg (27-31); Mean Corpuscular Volume 78 fL (80-94); Mean Platelet Volume 8.6 fL (7.4-10.4); Platelet Count 91 10^3/uL (150-450); Red Blood Count 3.88 10^6 /uL (4.18-5.48); Red Cell Distribution Width 16 % (10-15); White Blood Count 5.9 10^3/uL (3.5-10.8)
[2021-07-04 07:44] LABS: Calcium 7.9 mg/dL (8.6-10.3); Magnesium 1.7 mg/dL (1.9-2.7); Potassium 3.4 mmol/L (3.5-5.0); eGFR CKD-EPI 65.2 (>60)
[2021-07-04] MEDS ORDERED: Magnesium CITRATE LIQ 300 ML BTL PO ONE (08:55)
[2021-07-04] MEDS: DULoxetine DR 30 mg CAP PO SCH (10:28)
[2021-07-04] MEDS: Aspirin EC 81 mg TAB.EC (enteric coated) PO SCH (10:29)
[2021-07-04] MEDS: Heparin 5000 UNITS/ML 1 mL VIAL SUBCUT SCH ×2 (10:31→21:46)
[2021-07-04] MEDS: cefTRIAXone 2 GM ADDV.VIAL 2 GM in NS 0.9% 100 ml BAG 100 ML IV SCH (13:27)
[2021-07-04] MEDS ORDERED: fentaNYL 100 mcg/2 ml 50 MCG/ML VIAL ONE (16:31)
[2021-07-04] MEDS ORDERED: Midazolam 10 mg/10 ml VIAL 1 mg/ml 10 ml VIAL (10 mg) ONE (16:31)
[2021-07-04] MEDS: Insulin GLARGINE 100 un/ml 10 ml VIAL SUBCUT SCH (21:45)
[2021-07-04] MEDS: RIVASTIGMINE 9.5 MG TRANSDERM SCH (21:48)
[2021-07-05] MEDS: Lactated Ringers 1000 ml BAG 1,000 ML IV SCH (03:31)
[2021-07-05 06:55] LABS: Calcium 7.9 mg/dL (8.6-10.3); Magnesium 1.5 mg/dL (1.9-2.7); Potassium 3.1 mmol/L (3.5-5.0); eGFR CKD-EPI 74.1 (>60)
[2021-07-05] MEDS ORDERED: Magnesium Sulf 4 GM/100 ML IV 4,000 MG/100 ML BAG IVPB ONE (07:22)
[2021-07-05] MEDS ORDERED: Potassium Chlor 20 meq TAB.ER PO ONE (07:53)
[2021-07-05] MEDS: DULoxetine DR 30 mg CAP PO SCH (08:18)
[2021-07-05] MEDS: Aspirin EC 81 mg TAB.EC (enteric coated) PO SCH (08:18)
[2021-07-05] MEDS: Heparin 5000 UNITS/ML 1 mL VIAL SUBCUT SCH (08:24)
[2021-07-05] MEDS ORDERED: cefTRIAXone 2 GM ADDV.VIAL 2 GM in NS 0.9% 100 ml BAG 100 ML IV SCH (14:30)
[2021-07-05] MEDS: cefTRIAXone 2 GM ADDV.VIAL 2 GM in NS 0.9% 100 ml BAG 100 ML IV SCH (14:53)
[2021-07-05 15:19] VITALS: BP 152/70
== END 2021-07-05 18:15 | disposition home or self-care (01) | DRG 871 ==
LOC: ED 13:35 → EDHOLD 21:11 → SUATTDRO 21:11 → MED 22:32
PROVIDERS: ADMIT Internal Medicine; ATTEND Internal Medicine

== ENCOUNTER 2023-11-01 10:59 | Inpatient (IN) ==
[2023-11-01 11:40] LABS: ABS Basophils 0.1 10^3/uL (0.0-0.1); ABS Monocytes 1.3 10^3/uL (0.0-1.1); ABS Neutrophils 11.4 10^3/uL (1.5-7.6); ABS Nucleated RBC 0.01 10^3/ul; Eosinophil % 0.2 %; Lymphocyte % 7.4 %; Mean Corpuscular Hemoglobin 27.3 pg (27-33); Mean Corpuscular Hgb Conc 32.4 g/dL (31-36); Mean Corpuscular Volume 84.2 fL (80-97); Mean Platelet Volume 8.7 fL (7.5-11.2); Platelet Count 105 10^3/uL (150-450); Red Blood Count 4.75 10^6/uL (4.06-5.63); Red Cell Distribution Width 16.5 % (12-17); White Blood Count 13.9 10^3/uL (3.6-10.2)
[2023-11-01 11:55] LABS: INR 1.12 (0.83-1.13)
[2023-11-01 12:21] LABS: Albumin 4.2 g/dL (3.2-5.2); Albumin/Globulin Ratio 1.8 (1-3); C Reactive Protein 45.13 mg/L (<8.01); Calcium 9.3 mg/dL (8.6-10.3); Creatinine, Serum 1.66 mg/dL (0.67-1.17); Globulin 2.4 g/dL (2-4); Potassium 4.8 mmol/L (3.5-5.0); Total Bilirubin 0.9 mg/dL (0.2-1.0); Total Protein 6.6 g/dL (6.4-8.9); eGFR CKD-EPI 42.5 (>60)
[2023-11-01] MEDS ORDERED: cefTRIAXone 2 gm/50 mL D5W 2 GM/50 ML BAG IV ONE (12:25)
[2023-11-01] MEDS: cefTRIAXone 2 GM ADDV.VIAL 2 GM in NS 0.9% 100 ml BAG 100 ML IV ONE (12:26)
[2023-11-01] MEDS: cefTRIAXone 2 gm/50 mL D5W 2 GM/50 ML BAG IV ONE (12:27)
[2023-11-01] MEDS: NS 0.9% 1000 ml BAG 1,000 ML IV ONE (12:27)
[2023-11-01 13:04] LABS: High Sensitivity Troponin 1 Hr 7 pg/mL (<20)
[2023-11-01] MEDS: Acetaminophen IV 1 GM/100ML 1,000 MG/100 ML BAG IV ONE (13:49)
[2023-11-01 14:18] LABS: Urine Appearance Clear; Urine Bilirubin Negative (Negative); Urine Blood 1+ (Negative); Urine Color Yellow; Urine Glucose Negative (Negative); Urine Ketones 1+ (Negative); Urine Nitrite Negative (Negative); Urine Protein 2+ (>=100 mg/dL) (Negative); Urine Specific Gravity 1.019 (1.002-1.030); Urine Urobilinogen 1+ (Negative)
[2023-11-01 14:25] LABS: Urine Bacteria Absent /HPF (Absent); Urine Red Blood Cell 3+(>10/hpf) /HPF (0-Trace); Urine Squamous Epithelial Cell Present /HPF (Absent); Urine White Blood Cell Trace(0-5/hpf) /HPF (0-Trace)
[2023-11-01] MEDS ORDERED: Ondansetron 4 mg VIAL 2 MG/ML 2 ml VIAL IV PRN (16:04)
[2023-11-01] MEDS ORDERED: Dextrose 50% Syringe 50 ml 25 GM/50 ML SYRINGE IV PUSH PRN (18:50)
[2023-11-01] MEDS: Enoxaparin 40 MG/0.4 ML SYR SUBCUT SCH (20:27)
[2023-11-01] MEDS: Nystatin TOP POWDER 15 GM BTL TOPICAL SCH (20:30)
[2023-11-02 05:59] LABS: Calcium 8.7 mg/dL (8.6-10.3); Creatinine, Serum 1.67 mg/dL (0.67-1.17); Magnesium 1.9 mg/dL (1.9-2.7); eGFR CKD-EPI 42.2 (>60)
[2023-11-02 07:03] LABS: Hematocrit 38.6 % (38-53); Hemoglobin 12.5 g/dL (13.2-16.3); Mean Corpuscular Hemoglobin 27.9 pg (27-33); Mean Corpuscular Hgb Conc 32.4 g/dL (31-36); Mean Corpuscular Volume 86.1 fL (80-97); Red Blood Count 4.48 10^6/uL (4.06-5.63); Red Cell Distribution Width 16.8 % (12-17); White Blood Count 8.7 10^3/uL (3.6-10.2)
[2023-11-02 07:25] LABS: ABS Eosinophils 0.1 10^3/uL (0.0-0.5); ABS Lymphocytes 1.6 10^3/uL (1.0-4.8); ABS Monocytes 0.9 10^3/uL (0.0-1.1); ABS Neutrophils 6.2 10^3/uL (1.5-7.6); ABS Nucleated RBC 0.01 10^3/ul; Eosinophil % 0.7 %; Lymphocyte % 17.8 %; Mean Platelet Volume 8.9 fL (7.5-11.2); Nucleated Red Blood Cells % 0.1 %/100WBC (0.0-0.8); Platelet Count 77 10^3/uL (150-450)
[2023-11-02] MEDS: Cholecalciferol (VIT D3) 1,000 unit TAB PO SCH (07:57)
[2023-11-02] MEDS: DULoxetine DR 30 mg CAP PO SCH (08:00)
[2023-11-02] MEDS: Aspirin EC 81 mg TAB.EC (enteric coated) PO SCH (08:02)
[2023-11-02] MEDS: RIVASTIGMINE 9.5 MG TRANSDERM SCH (09:36)
[2023-11-02] MEDS: cefTRIAXone 2 gm/50 mL D5W 2 GM/50 ML BAG IV SCH (14:07)
[2023-11-03 05:48] LABS: ABS Eosinophils 0.2 10^3/uL (0.0-0.5); ABS Lymphocytes 1.9 10^3/uL (1.0-4.8); ABS Monocytes 0.8 10^3/uL (0.0-1.1); ABS Neutrophils 4.3 10^3/uL (1.5-7.6); ABS Nucleated RBC 0.01 10^3/ul; Eosinophil % 2.6 %; Hematocrit 37.7 % (38-53); Hemoglobin 12.5 g/dL (13.2-16.3); Mean Corpuscular Hemoglobin 27.9 pg (27-33); Mean Corpuscular Hgb Conc 33.2 g/dL (31-36); Mean Corpuscular Volume 83.9 fL (80-97); Mean Platelet Volume 8.9 fL (7.5-11.2); Nucleated Red Blood Cells % 0.1 %/100WBC (0.0-0.8); Platelet Count 93 10^3/uL (150-450); Red Blood Count 4.49 10^6/uL (4.06-5.63); Red Cell Distribution Width 16.4 % (12-17); White Blood Count 7.2 10^3/uL (3.6-10.2)
[2023-11-03 05:58] LABS: Calcium 8.9 mg/dL (8.6-10.3); Creatinine, Serum 1.74 mg/dL (0.67-1.17); Potassium 3.8 mmol/L (3.5-5.0); eGFR CKD-EPI 40.1 (>60)
[2023-11-03] MEDS: Labetalol IV 5 MG/ML 20 ml VIAL IV PUSH ONE (06:15)
[2023-11-03] MEDS: NS 0.9% 500 ml BAG 500 ML IV ONE (17:42)
[2023-11-04 06:03] LABS: ABS Eosinophils 0.4 10^3/uL (0.0-0.5); ABS Monocytes 0.6 10^3/uL (0.0-1.1); ABS Neutrophils 2.4 10^3/uL (1.5-7.6); Eosinophil % 6.8 %; Hematocrit 34.1 % (38-53); Hemoglobin 11.4 g/dL (13.2-16.3); Lymphocyte % 36.4 %; Mean Corpuscular Hemoglobin 28.1 pg (27-33); Mean Corpuscular Hgb Conc 33.4 g/dL (31-36); Mean Corpuscular Volume 84.1 fL (80-97); Mean Platelet Volume 8.6 fL (7.5-11.2); Nucleated Red Blood Cells % 0.1 %/100WBC (0.0-0.8); Platelet Count 86 10^3/uL (150-450); Red Blood Count 4.05 10^6/uL (4.06-5.63); Red Cell Distribution Width 16.3 % (12-17); White Blood Count 5.4 10^3/uL (3.6-10.2)
[2023-11-04 06:22] LABS: Calcium 8.3 mg/dL (8.6-10.3); Creatinine, Serum 1.78 mg/dL (0.67-1.17); Potassium 3.6 mmol/L (3.5-5.0)
[2023-11-04 23:45] LABS: Anaplasma phagocytophilum Negative (Negative); B. miyamotoi PCR, B Negative (Negative); Babesia divergens/MO-1 Negative (Negative); Babesia ducani Negative (Negative); Ehrlichia chaffeensis Negative (Negative); Ehrlichia ewingii/canis Negative (Negative); Ehrlichia muris eauclairensis Negative (Negative)
[2023-11-05 07:01] LABS: ABS Eosinophils 0.4 10^3/uL (0.0-0.5); ABS Lymphocytes 1.9 10^3/uL (1.0-4.8); ABS Monocytes 0.5 10^3/uL (0.0-1.1); ABS Neutrophils 2.1 10^3/uL (1.5-7.6); Eosinophil % 7.8 %; Hematocrit 38.6 % (38-53); Hemoglobin 12.7 g/dL (13.2-16.3); Mean Corpuscular Hgb Conc 32.9 g/dL (31-36); Mean Corpuscular Volume 85.2 fL (80-97); Mean Platelet Volume 8.8 fL (7.5-11.2); Nucleated Red Blood Cells % 0.1 %/100WBC (0.0-0.8); Platelet Count 97 10^3/uL (150-450); Red Blood Count 4.53 10^6/uL (4.06-5.63); Red Cell Distribution Width 16.4 % (12-17); White Blood Count 4.9 10^3/uL (3.6-10.2)
[2023-11-05 07:08] LABS: Calcium 8.8 mg/dL (8.6-10.3); Creatinine, Serum 1.69 mg/dL (0.67-1.17); eGFR CKD-EPI 41.6 (>60)
[2023-11-05 10:24] LABS: Rapid COVID-19 Molecular Undetected (Undetected)
[2023-11-06 10:18] VITALS: BP 148/67
== END 2023-11-06 10:15 | DRG 872 ==
LOC: EDHOLD 10:59 → ED 10:59 → MEDTELE 18:02
PROVIDERS: ADMIT Family Medicine; ATTEND Internal Medicine